=== PATIENT | male | born 1945 | race Caucasian/White ===

== ENCOUNTER → 2018-08-23 10:21 | Outpatient (CLI) | payer MEDICARE, OTHER, SELFPAY ==
--- NOTE | 2018-08-23 10:27 | US_ITS ---
US Arterial Ankle Brachial Ind History: Diabetes, hyperlipidemia, bilateral claudication ITS.REASON: Skin Change ORDERING PHYSICIAN: Lyndsay Rocha DPM PATIENT AGE: 73 years TECHNIQUE: Segmental pressures obtained of both right and left leg. These are compared to brachial blood pressure to yield index at each level sampled including summary LAUREN. The data sheets from the procedure are available in PACS FINDINGS Rest study only performed today No prior studies available for comparison. Blood pressures reported are in millimeters mercury. RIGHT LEG LAUREN = 1.3. RIGHT LEG TBI=1.0 Brachial BP: 168 Thigh BP: 189 Calf BP: 205 Ankle PT: 211 Ankle DP : 181 Digit =164 LEFT LEG LAUREN = 1.2 LEFT LEG TBI= 1.0 Brachial BPD: 158 Thigh BP: 183 Calf BP: 199 Ankle PT:203 Ankle DP: 180 Digit = 170 Pulses and waveforms: Normal IMPRESSION: The ABIs as reported above are within normal limits. Waveforms and pulses are also unremarkable. The TBI's are within normal limits
== END ==
PROVIDERS: Family Provider Family Medicine; PCP Family Medicine; Visit Provider Podiatrist
DX: R09.89 Other specified symptoms and signs involving the circulatory and respiratory systems (principal); R23.9 Unspecified skin changes
CPT/HCPCS: 93922

== ENCOUNTER → 2018-08-29 07:57 | Outpatient (POV) | payer MEDICARE, OTHER, SELFPAY | PROVIDERS: Family Provider Family Medicine; PCP Family Medicine; Visit Provider Specialist | DX: G56.22 Lesion of ulnar nerve, left upper limb (principal); R20.2 Paresthesia of skin | CPT/HCPCS: 95886; 95909 ==

== ENCOUNTER → 2018-10-13 15:01 | Outpatient (CLI) | payer MEDICARE, OTHER, SELFPAY | PROVIDERS: PCP Family Medicine; Visit Provider Family Medicine | DX: R07.9 Chest pain, unspecified (principal) | CPT/HCPCS: 93005 ==

== ENCOUNTER → 2019-02-27 13:50 | Outpatient (POV) | payer MEDICARE, OTHER, SELFPAY ==
[2019-02-27 13:55] VITALS: BP 142/65; PULSE 79; RESP 18; O2SAT 98
--- NOTE | 2019-03-06 12:12 | HMH.PMCON ---
Assessment and Plan (1) Piriformis syndrome Status: Chronic Qualifiers: Laterality: right Qualified Code(s): G57.01 - Lesion of sciatic nerve, right lower limb Category: Medical Code(s): G57.00 - Lesion of sciatic nerve, unspecified lower limb (2) Myofascial pain syndrome Status: Chronic Category: Medical Code(s): M79.18 - Myalgia, other site - Assessment and plan all Dx Assessment and Plan for all problems:: We will set the patient up for piriformis injection. I will see him back and reassess him at that time. Patient's been instructed to call the office if he has any issues prior to his next appointment. Dr. Chaney has reviewed this note and agrees with this plan of care. This note was dictated using voice recognition software and may contain errors or omissions HPI - Data of Consult Consult date: 03/06/19 Requesting Physician: Suri Leach APRN Primary Care Provider: Malathi Lopes MD - Consult Narrative Reason for consult: Low back pain History of present illness: Mr. Medel is a 73 year old male who presents today with a complaint of pain on his sit bone on the right side. Patient is having pain in his piriformis muscle. Patient states that it runs down his leg at times. Patient stated started after an ER visit where he had his legs dangling for quite some time. He rates his pain a 8 out of 10 today. CC: Suri Leach APRN [facility] History I have reviewed the patient's past medical history: Yes Medical History: Reports:: Atrial Fibrillation, Coronary Artery Disease, Diabetes Mellitus Type 2, Hyperlipidemia, Hypertension, Myocardial Infarction Denies:: Diabetes Mellitus Type 1 *Have you ever received a pneumonia vaccine?: Yes *Have you received a flu vaccine this season?: No Other Medical History: Reports: Arthritis, Sinus Problems Laterality Cases: Bilateral: Arthroscopy Knee, Tonsillectomy Other Surgeries: Yes: Cardiac Catheterization, Coronary Stent, Other Amputation: No Fractures: No - *Social History Smoking Status: Never smoker Alcohol Intake: never Alcohol Intake Frequency:: other Substance Use Type: denies use *Occupational Status:: retired Housing: house *Travel in the last 8 weeks: None - Psychiatric History Expresses thoughts of harming self/others: None Suicide Plan Description: No Plan Family Hx:: Cancer, Hyperlipidemia, Hypertension, Coronary Artery Disease, Heart Attack Meds Home Medications Medication Instructions Recorded Confirmed Type amlodipine 5 mg tablet 5 mg PO DAILY tab 02/01/18 02/06/19 History aspirin 81 mg tablet,delayed 81 mg PO DAILY tab 02/01/18 02/06/19 History release coenzyme Q10 100 mg capsule 100 mg PO DAILY cap 02/01/18 02/06/19 History flaxseed oil 1,000 mg capsule 3,000 mg PO DAILY cap 02/01/18 02/06/19 History glimepiride 4 mg tablet 4 mg PO QAM 02/01/18 02/06/19 History meloxicam 15 mg tablet 15 mg PO QODHS tab 02/01/18 02/06/19 History metformin 1,000 mg tablet 1,000 mg PO BID 02/01/18 02/06/19 History metoprolol succinate ER 100 mg 100 mg PO DAILY tab 02/01/18 02/06/19 History tablet,extended release 24 hr geqhtgmdsvgu-Hp-mbci-minerals 18 1 tab PO DAILY tab 02/01/18 02/06/19 History mg-0.4 mg tablet nitroglycerin 0.4 mg sublingual 0.4 mg SUBLINGUAL Q5M PRN 02/01/18 02/06/19 History tablet pravastatin 40 mg tablet 40 mg PO QHS 02/01/18 02/06/19 History tamsulosin 0.4 mg capsule 0.4 mg PO ONCE 02/01/18 02/06/19 History fluticasone propionate 50 1 spray INTRANASAL DAILY PRN 60 08/09/18 02/06/19 History mcg/actuation nasal Days #16 g spray,suspension furosemide 20 mg tablet 20 mg PO DAILY 90 Days #90 tab 08/09/18 02/06/19 History losartan 50 mg tablet 50 mg PO BID 90 Days #180 tab 08/09/18 02/06/19 History glucosamine sulfate 500 mg tablet 500 mg PO BID tab 02/06/19 02/06/19 History isosorbide mononitrate ER 30 mg 30 mg PO DAILY #30 tab 02/06/19 02/06/19 Rx tablet,extended release 24 hr All
--- NOTE | 2019-03-06 12:15 | P.CONS_ITS ---
Assessment and Plan (1) Piriformis syndrome Status: Chronic Qualifiers: Laterality: right Qualified Code(s): G57.01 - Lesion of sciatic nerve, right lower limb Category: Medical Code(s): G57.00 - Lesion of sciatic nerve, unspecified lower limb (2) Myofascial pain syndrome Status: Chronic Category: Medical Code(s): M79.18 - Myalgia, other site - Assessment and plan all Dx Assessment and Plan for all problems:: We will set the patient up for piriformis injection. I will see him back and reassess him at that time. Patient's been instructed to call the office if he has any issues prior to his next appointment. Dr. Chaney has reviewed this note and agrees with this plan of care. This note was dictated using voice recognition software and may contain errors or omissions HPI - Data of Consult Consult date: 03/06/19 Requesting Physician: Suri Leach APRN Primary Care Provider: Malathi Lopes MD - Consult Narrative Reason for consult: Low back pain History of present illness: Mr. Medel is a 73 year old male who presents today with a complaint of pain on his sit bone on the right side. Patient is having pain in his piriformis muscle. Patient states that it runs down his leg at times. Patient stated started after an ER visit where he had his legs dangling for quite some time. He rates his pain a 8 out of 10 today. CC: Suri Leach APRN [facility] History I have reviewed the patient's past medical history: Yes Medical History: Reports:: Atrial Fibrillation, Coronary Artery Disease, Diabetes Mellitus Type 2, Hyperlipidemia, Hypertension, Myocardial Infarction Denies:: Diabetes Mellitus Type 1 *Have you ever received a pneumonia vaccine?: Yes *Have you received a flu vaccine this season?: No Other Medical History: Reports: Arthritis, Sinus Problems Laterality Cases: Bilateral: Arthroscopy Knee, Tonsillectomy Other Surgeries: Yes: Cardiac Catheterization, Coronary Stent, Other Amputation: No Fractures: No - *Social History Smoking Status: Never smoker Alcohol Intake: never Alcohol Intake Frequency:: other Substance Use Type: denies use *Occupational Status:: retired Housing: house *Travel in the last 8 weeks: None - Psychiatric History Expresses thoughts of harming self/others: None Suicide Plan Description: No Plan Family Hx:: Cancer, Hyperlipidemia, Hypertension, Coronary Artery Disease, Heart Attack Meds Home Medications Medication Instructions Recorded Confirmed Type amlodipine 5 mg tablet 5 mg PO DAILY tab 02/01/18 02/06/19 History aspirin 81 mg tablet,delayed 81 mg PO DAILY tab 02/01/18 02/06/19 History release coenzyme Q10 100 mg capsule 100 mg PO DAILY cap 02/01/18 02/06/19 History flaxseed oil 1,000 mg capsule 3,000 mg PO DAILY cap 02/01/18 02/06/19 History glimepiride 4 mg tablet 4 mg PO QAM 02/01/18 02/06/19 History meloxicam 15 mg tablet 15 mg PO QODHS tab 02/01/18 02/06/19 History metformin 1,000 mg tablet 1,000 mg PO BID 02/01/18 02/06/19 History metoprolol succinate ER 100 mg 100 mg PO DAILY tab 02/01/18 02/06/19 History tablet,extended release 24 hr fjpdwsfyrjkd-Bc-vhxf-minerals 18 1 tab PO DAILY tab 02/01/18 02/06/19 History mg-0.4 mg tablet nitroglycerin 0.4 mg sublingual 0.4 mg SUBLINGUAL Q5M PRN 02/01/18 02/06/19 History tablet pravastatin 40 mg tablet 40 mg PO QHS 02/01/18 02/06/19 History tamsulosin 0.4 mg capsule 0.4 mg PO ONCE 0
== END ==
PROVIDERS: PCP Family Medicine; Visit Provider Clinical Nurse Specialist Family Health
DX: G57.01 Lesion of sciatic nerve, right lower limb (principal); M79.18 Myalgia, other site
CPT/HCPCS: 99202

== ENCOUNTER → 2019-03-01 11:12 | Outpatient (CLI) | payer MEDICARE, OTHER, SELFPAY | PROVIDERS: PCP Family Medicine; Visit Provider Internal Medicine | DX: I25.10 Atherosclerotic heart disease of native coronary artery without angina pectoris | CPT/HCPCS: 93306 ==

== ENCOUNTER → 2019-03-13 12:46 | Outpatient (POV) | payer MEDICARE, OTHER, SELFPAY ==
[2019-03-13 13:00] VITALS: BP 151/79; PULSE 88; RESP 18; O2SAT 98; BMI 38.6
--- NOTE | 2019-03-14 09:50 | P.CONS_ITS ---
[facility] Pain Management SOAP Note Subjective:: Patient is a pleasant 73-year-old white male who presents today for follow-up. Patient still having a lot of right-sided hip pain. Most the pain is centered over his right SI joint and right greater trochanteric bursa. Patient rates his pain a 7 out of 10 today. ROS General: no recent weight change, no fever, no sleep disturbances Respiratory: no cough, no shortness of air, no recurring pulmonary infections Cardiovascular/Peripheral Vascular: No chest pain, No palpitations, no edema, no shortness of breath. Gastrointestinal: no incontinence, normal bowel movements reported Genitourinary: no incontinence Musculoskeletal: Right hip pain Psychiatric: normal mood/ affect, Neurological: [denies weakness in extremities], [denies balance issues] Objective:: Physical Exam General: Alert and oriented x3, no acute distress, pleasant and cooperative, [on room air] Lungs: Resps E/U, Symmetrical chest expansion, Eyes: PERRL Musculoskeletal: Flexion and extension of lumbar spine somewhat guarded secondary to pain, deep tendon reflexes normal, strength in upper and lower extremities [5/5], [abnormal gait noted] positive Prashant's test, positive thigh thrust test and positive SI joint compression test on the right side, extreme point tenderness over right greater trochanteric bursa Neurological: speech clear, 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 I will follow-up with him after his injection reassess his symptoms at that time. Dr. Chaney has reviewed this note and agrees with this plan of care. This note was dictated using voice recognition software and may contain errors or omissions
== END ==
PROVIDERS: PCP Family Medicine; Visit Provider Clinical Nurse Specialist Family Health
DX: M46.1 Sacroiliitis, not elsewhere classified (principal); M71.9 Bursopathy, unspecified
CPT/HCPCS: 99213

== ENCOUNTER → 2019-04-27 12:23 | Outpatient (CLI) | payer MEDICARE, OTHER, SELFPAY ==
--- NOTE | 2019-04-27 12:31 | XR_ITS ---
XR foot RT min 3V HISTORY: ITS.REASON: RT FOOT PAIN ORDERING PHYSICIAN: Robert Cornelius MD PATIENT AGE: 74 years COMPARISON: None FINDINGS: No fracture or dislocation. No lytic or blastic change. There is normal mineralization.. The joint spaces are well-preserved. No significant degenerative/arthritic changes. No erosive changes evident. IMPRESSION: Negative, no acute finding
--- NOTE | 2019-05-19 14:34 | SW/DCPLANNER ---
I have set this patient up with [facility]. I have spoke with Maria Eugenia at [facility] to confirm order has been received and services will be resumed.
== END ==
PROVIDERS: PCP Family Medicine; Visit Provider Family Medicine
DX: M79.671 Pain in right foot (principal)
CPT/HCPCS: 73630

== ENCOUNTER → 2019-05-22 10:35 | Outpatient (POV) | payer MEDICARE, OTHER, SELFPAY ==
[2019-05-22 10:49] VITALS: BP 149/71; PULSE 75; RESP 18; O2SAT 98; BMI 38.0
--- NOTE | 2019-05-22 11:00 | HMH.PAINSOAP ---
[facility] Pain Management SOAP Note Subjective:: Patient is a pleasant 73-year-old white male who presents today for complaints of right hip pain radiating to his right thigh area. He rates his pain a 6 out of 10 today. Patient had a right SI joint and right greater trochanteric bursa injection in February, but did not follow-up after that injection. He reports that he was unable to follow-up secondary to caring for his who has Alzheimer's. He says that he was reported by a home health nurse for leaving in the past to go to a doctor's appointment. As a result, he is very limited with his ability to schedule appointments. ROS General: no recent weight change, no fever, no sleep disturbances Respiratory: no cough, no shortness of air, no recurring pulmonary infections Cardiovascular/Peripheral Vascular: No chest pain, No palpitations, no edema, no shortness of breath. Gastrointestinal: no incontinence, normal bowel movements reported Genitourinary: no incontinence Musculoskeletal: Back pain, right leg pain Psychiatric: normal mood/ affect, [denies depression], [denies anxiety] Neurological: [denies weakness in extremities], [denies balance issues] Objective:: Physical Exam General: Alert and oriented x3, no acute distress, pleasant and cooperative, [on room air] Lungs: Resps E/U, Symmetrical chest expansion, Eyes: PERRL Musculoskeletal: Flexion and extension of lumbar spine somewhat guarded secondary to pain, deep tendon reflexes normal, strength in upper and lower extremities [5/5], abnormal gait noted, positive Tess test, positive compression test, positive Maged test Neurological: speech clear, warehouser equal, no gross sensory deficits Assessment:: Sacroiliitis Plan:: We will schedule the patient for a right SI joint injection. The patient is not on any anticoagulation therapy. He will continue a home stretching program and NSAIDs. We will follow-up with the patient after his procedure and reassess his symptoms at that time. He is been instructed to call the office if he has any concerns prior to his next appointment.
--- NOTE | 2019-05-22 11:04 | P.CONS_ITS ---
[facility] Pain Management SOAP Note Subjective:: Patient is a pleasant 73-year-old white male who presents today for complaints of right hip pain radiating to his right thigh area. He rates his pain a 6 out of 10 today. Patient had a right SI joint and right greater trochanteric bursa injection in February, but did not follow-up after that injection. He reports that he was unable to follow-up secondary to caring for his who has Alzheimer's. He says that he was reported by a home health nurse for leaving in the past to go to a doctor's appointment. As a result, he is very limited with his ability to schedule appointments. ROS General: no recent weight change, no fever, no sleep disturbances Respiratory: no cough, no shortness of air, no recurring pulmonary infections Cardiovascular/Peripheral Vascular: No chest pain, No palpitations, no edema, no shortness of breath. Gastrointestinal: no incontinence, normal bowel movements reported Genitourinary: no incontinence Musculoskeletal: Back pain, right leg pain Psychiatric: normal mood/ affect, [denies depression], [denies anxiety] Neurological: [denies weakness in extremities], [denies balance issues] Objective:: Physical Exam General: Alert and oriented x3, no acute distress, pleasant and cooperative, [on room air] Lungs: Resps E/U, Symmetrical chest expansion, Eyes: PERRL Musculoskeletal: Flexion and extension of lumbar spine somewhat guarded secondary to pain, deep tendon reflexes normal, strength in upper and lower extremities [5/5], abnormal gait noted, positive Tess test, positive compression test, positive Maged test Neurological: speech clear, 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 The patient is not on any anticoagulation therapy. He will continue a home stretching program and NSAIDs. We will follow-up with the patient after his procedure and reassess his symptoms at that time. He is been instructed to call the office if he has any concerns prior to his next appointment.
== END ==
PROVIDERS: PCP Family Medicine; Visit Provider Clinical Nurse Specialist Family Health
DX: M46.1 Sacroiliitis, not elsewhere classified (principal)
CPT/HCPCS: 99212

== ENCOUNTER → 2019-06-19 11:42 | Outpatient (POV) | payer MEDICARE, OTHER, SELFPAY ==
[2019-06-19 11:43] VITALS: BP 136/68; PULSE 67; RESP 18; O2SAT 98; BMI 35.2
--- NOTE | 2019-06-19 12:32 | P.CONS_ITS ---
[facility] Pain Management SOAP Note Subjective:: Patient is a pleasant 74-year-old white male who presents today for follow-up. Patient is being treated for right sacroiliitis. Patient had a right SI joint recently and reports that he had 90% relief with the injection, however the pain has returned. Patient says that he finds himself leaning more on his right side and feels like he is causing increased pressure to his right joint . Patient rates his pain a 3 out of 10 today. The patient also reports that he is concerned with his right foot. He says that the arch in his foot appears to be decreasing, causing him increased pain. He has not consulted with podiatry in the past. He does feel as though the problem with his foot is also increasing his pain. The patient does ambulate with a cane on the right side. The patient continues with a home stretching program and anti-inflammatories. Review of Systems General: No recent weight changes, no fever, no sleep disturbances Respiratory: No cough, no shortness of air, no recurring pulmonary infections Cardiovascular/peripheral vascular: No chest pain, no palpitations, no edema, no shortness of breath Gastrointestinal: No new onset incontinence, normal bowel movements reported Genitourinary: No new onset incontinence Musculoskeletal: Right buttock pain Psychiatric: Normal mood/affect Neurological: [Denies weakness in extremities], [denies balance issues] Objective:: Physical exam General: Alert and oriented x3, no acute distress, pleasant and cooperative, [on room air] Lungs: Respirations even and unlabored, symmetrical chest expansion Eyes: PERRL Musculoskeletal: Flexion and extension of lumbar spine somewhat guarded secondary to pain, deep tendon reflexes normal, strength in upper and lower extremities [5/5], [abnormal gait noted], positive compression test, Maged test, Yoemans test Neurological: Speech clear, 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 Given the efficacy in the past I think he would benefit from this. He will also continue home stretching program, along with anti-inflammatories. We will also refer the patient to Dr. Worrell given his complaint with pain to his right foot and reports of a decreasing arch . The patient does feel that this is a component to his continued pain with ambulation. We will see the patient back after his procedure to reassess his symptoms at that time. He has been his call the office if he has concerns prior to the next appointment. Dr. Chaney has reviewed this note and agrees with this plan of care. This note was dictated using voice recognition software and make contain errors or omissions.
== END ==
PROVIDERS: PCP Family Medicine; Visit Provider Clinical Nurse Specialist Family Health
DX: M46.1 Sacroiliitis, not elsewhere classified (principal)
CPT/HCPCS: 99212

== ENCOUNTER → 2019-08-14 13:05 | Outpatient (POV) | payer MEDICARE, OTHER, SELFPAY ==
[2019-08-14 13:27] VITALS: BP 131/67; PULSE 75; RESP 18; O2SAT 98; BMI 33.2
--- NOTE | 2019-08-14 13:32 | HMH.PAINSOAP ---
[facility] Pain Management SOAP Note Subjective:: Is a pleasant 74-year-old white male who presents today for follow-up after right SI joint injection. Patient rates his pain a 0 out of 10. Patient overall doing well with his current recently lost 40 pounds. Patient would like to follow-up on an as-needed basis. ROS General: no recent weight change, no fever, no sleep disturbances Respiratory: no cough, no shortness of air, no recurring pulmonary infections Cardiovascular/Peripheral Vascular: No chest pain, No palpitations, no edema, no shortness of breath. Gastrointestinal: no incontinence, normal bowel movements reported Genitourinary: no incontinence Musculoskeletal: Back pain, hip pain Psychiatric: normal mood/ affect Neurological: [denies weakness in extremities], [denies balance issues] Objective:: Physical Exam General: Alert and oriented x3, no acute distress, pleasant and cooperative, [on room air] Lungs: Resps E/U, Symmetrical chest expansion, Eyes: PERRL Musculoskeletal: Flexion and extension of lumbar spine somewhat guarded secondary to pain, deep tendon reflexes normal, strength in upper and lower extremities [5/5], [abnormal gait noted] Neurological: speech clear, lambskin trimmer equal, no gross sensory deficits Assessment:: Sacroiliitis Plan:: We will follow-up with the patient on as-needed basis is been instructed to call the office if he has any issues prior to his next appointment. Dr. Chaney has reviewed this note and agrees with this plan of care. This note was dictated using voice recognition software and may contain errors or omissions [facility] History I have reviewed the patient's past medical history: Yes Medical History: Reports:: Atrial Fibrillation, Coronary Artery Disease, Diabetes Mellitus Type 2, Hyperlipidemia, Hypertension, Myocardial Infarction Denies:: Cancer, Diabetes Mellitus Type 1, Internal Pacemaker, MRSA, Seizures *Have you ever received a pneumonia vaccine?: Yes *Have you received a flu vaccine this season?: Yes Other Medical History: Reports: Arthritis, Sinus Problems Laterality Cases: Bilateral: Arthroscopy Knee, Tonsillectomy Other Surgeries: Yes: Cardiac Catheterization, Coronary Stent, Other. No: Pacemaker Amputation: No Fractures: No - *Social History Smoking Status: Never smoker Tobacco Type: smokeless tobacco # Packs/Day (cigarettes): 1 Alcohol Intake: never Alcohol Intake Frequency:: other Substance Use Type: denies use *Occupational Status:: other Housing: house Household Members: spouse *Travel in the last 8 weeks: None Family Hx:: Cancer, Hyperlipidemia, Hypertension, Coronary Artery Disease, Heart Attack
== END ==
PROVIDERS: PCP Family Medicine; Visit Provider Clinical Nurse Specialist Family Health
DX: M46.1 Sacroiliitis, not elsewhere classified (principal)
CPT/HCPCS: 99212

== ENCOUNTER → 2019-12-26 11:43 | Outpatient (POV) | payer MEDICARE, OTHER, SELFPAY ==
--- NOTE | 2019-12-26 12:24 | HMH.PAINSOAP ---
[facility] Pain Management SOAP Note Subjective:: Patient is a pleasant 74-year-old white male who presents today for follow-up after SI joint injection. Patient has 90% pain relief. Patient denies any pain today. Overall doing well would like to follow-up as needed ROS General: no recent weight change, no fever, no sleep disturbances Respiratory: no cough, no shortness of air, no recurring pulmonary infections Cardiovascular/Peripheral Vascular: No chest pain, No palpitations, no edema, no shortness of breath. Gastrointestinal: no new onset incontinence, normal bowel movements reported Genitourinary: no new onset incontinence Musculoskeletal: Back pain, SI joint pain Psychiatric: normal mood/ affect Neurological: [denies new onset weakness in extremities], [denies new onset balance issues] Objective:: Physical Exam General: Alert and oriented x3, no acute distress, pleasant and cooperative, [on room air] Lungs: Resps E/U, Symmetrical chest expansion, Eyes: PERRL Musculoskeletal: Flexion and extension of lumbar spine somewhat guarded secondary to pain, deep tendon reflexes normal, strength in upper and lower extremities [5/5], [abnormal gait noted] Neurological: speech clear, bill of materials clerk equal, no gross sensory deficits Assessment:: Sacroiliitis Plan:: We will follow-up with the patient on an as-needed basis and to call our office when his pain begins to return. Dr. Chaney has reviewed this note and agrees with this plan of care. This note was dictated using voice recognition software and may contain errors or omissions [facility] History I have reviewed the patient's past medical history: Yes Medical History: Reports:: Atrial Fibrillation, Coronary Artery Disease, Diabetes Mellitus Type 2, Hyperlipidemia, Hypertension, Myocardial Infarction Denies:: Cancer, Diabetes Mellitus Type 1, Internal Pacemaker, MRSA, Seizures *Have you ever received a pneumonia vaccine?: Yes *Have you received a flu vaccine this season?: Yes Other Medical History: Reports: Arthritis, Sinus Problems Laterality Cases: Bilateral: Arthroscopy Knee, Tonsillectomy Other Surgeries: Yes: Cardiac Catheterization, Coronary Stent, Other. No: Pacemaker Amputation: No Fractures: No - *Social History Smoking Status: Current every day smoker Tobacco Type: smokeless tobacco # Packs/Day (cigarettes): 1 Alcohol Intake: never Alcohol Intake Frequency:: other Substance Use Type: denies use *Occupational Status:: retired Housing: house Household Members: spouse *Travel in the last 8 weeks: None Family Hx:: Cancer, Hyperlipidemia, Hypertension, Coronary Artery Disease, Heart Attack
[2019-12-26 12:26] VITALS: BP 173/79; PULSE 74; RESP 18; O2SAT 98; BMI 32.3
== END ==
PROVIDERS: PCP Family Medicine; Visit Provider Clinical Nurse Specialist Family Health
DX: M46.1 Sacroiliitis, not elsewhere classified (principal); I48.91 Unspecified atrial fibrillation; I25.10 Atherosclerotic heart disease of native coronary artery without angina pectoris; E11.9 Type 2 diabetes mellitus without complications; E78.5 Hyperlipidemia, unspecified; I10 Essential (primary) hypertension; I25.2 Old myocardial infarction; Z72.0 Tobacco use
CPT/HCPCS: 99212

== ENCOUNTER → 2020-04-08 15:30 | Outpatient (CLI) | payer MEDICARE, OTHER, SELFPAY ==
--- NOTE | 2020-04-08 15:42 | XR_ITS ---
PROCEDURE: XR CHEST 2V CLINICAL HISTORY: ISCHEMIC HEART DISEASE Chest pain COMPARISON: CXR CHEST(2 VIEWS-NOT PORTABLE) from 03/12/2017 CXR1 CHEST-PORTABLE from 04/26/2017 CXR2V XR chest 2V from 02/03/2019 FINDINGS: The cardiomediastinal silhouette and pulmonary vascularity are within normal limits. The lungs are clear without infiltrates, suspicious nodules, or pleural effusions. There are some atelectatic or fibrotic changes in the lung bases and there is evidence of old granulomatous disease. There are multiple old right-sided rib fractures. IMPRESSION: Mild bibasilar atelectasis or fibrosis otherwise negative Dictated by: Earle Espitia MD 04/08/2020 16:21 Electronically signed by Earle Espitia MD in [place] 04/08/2020 16:21
[2020-04-08 15:53] LABS: Alanine Aminotransferase 17 U/L (12-78); Albumin Level 4.7 g/dl (3.5-5.0); Albumin/Globulin Ratio 1.7 (1.1-1.8); Alkaline Phosphatase 61 U/L (38-126); Anion Gap 9.5 mEq/L (5-15); Aspartate Amino Transferase 26 U/L (17-59); Bilirubin,Total 0.6 mg/dl (0.2-1.3); Blood Urea Nitrogen 22 mg/dl (9-20); Calcium 10.2 mg/dl (8.4-10.2); Carbon Dioxide 30 mmol/L (22.0-30.0); Chloride 104 mmol/L (98-107); Creatine Kinase 70 U/L (55-170); Estimated Glomerular Filt Rate 73 ml/min (>60); GFR (African American) 88 ML/MIN (>60); Globulin 2.7 g/dL (1.3-3.2); Glucose 126 mg/dl (74-100); Potassium 4.5 mmoL/L (3.5-5.1); Sodium 139 mmol/L (136-145); Total Protein,Serum 7.4 g/dl (6.3-8.2)
[2020-04-08 16:05] LABS: CKMB Relative Index 1.9 U/L (0-4.0); Creatine Kinase MB 1.3 ng/ml (0.0-2.03)
[2020-04-08 16:07] LABS: Troponin I < 0.01 ng/ml (0.00-0.034)
--- NOTE | 2020-04-08 17:03 | ECG_ITS ---
APPROVED REPORT Exam: Resting ECG HR:67 bpm ECG Measurements Heart Rate 67 AXES DE 256 P 46 QRSd 108 QRS -13 QT 394 T 10 QTc 416 <Conclusion> Sinus rhythm with 1st degree AV block Incomplete right bundle branch block Borderline ECG Electronically signed by : Ivan Howard, 04/09/2020 16:38:12
== END ==
PROVIDERS: Visit Provider Family Medicine
DX: I25.9 Chronic ischemic heart disease, unspecified (principal)
CPT/HCPCS: 36415; 71046; 80053; 82550; 82553; 84484; 93005

== ENCOUNTER 2020-04-16 08:42 | Day surgery (SDC) | payer MEDICARE, OTHER, SELFPAY ==
[2020-04-16] VITALS (12 sets, daily range): BP systolic 129–197; BP diastolic 64–97; PULSE 56–72; RESP 16–20; TEMP 36.5; O2SAT 92–95; BMI 33.2
--- NOTE | 2020-04-16 | IR_ITS ---
APPROVED REPORT Patient Location: Outpatient PROCEDURES Left heart catheterization Left ventriculogram Selective coronary angiogram INDICATION Abnormal EKG, Angina pectoris, Previous myocardial infarction Informed consent was obtained prior to the procedure. COMPLICATIONS NONE Estimated Blood Loss: LESS THAN 10 ML TECHNIQUE One percent lidocaine used to anesthetize the right anterior aspect of the wrist. The right radial artery was accessed via the Seldinger technique. A 6 Lao sheath was placed in the right radial artery. 2.5 mg of verapamil, 800 mcg of nitroglycerin, 1mg Lidocaine and 5000 U Heparin were given through the arterial sheath. The trap catheter was also used to perform left heart catheterization, left ventriculogram and selective coronary angiogram. At the end of the procedure the sheath was removed good hemostasis was achieved using Traclet band, patient was transferred to the postop holding area in stable condition. ANGIOGRAPHIC RESULTS The left main artery Normal The left anterior descending artery Has proximal 20 and 30% stenoses and mid vessel 30 to 40% tandem stenoses. A large first diagonal artery has an ostial 40% stenosis. There is an additional 50 to 60% stenosis in the midportion of the diagonal artery where the vessel is 1.5 mm The circumflex artery Is a codominant vessel and has mid vessel 30% stenosis The right coronary artery Is codominant and has proximal 10 to 20% stenoses and a distal 20 to 30% stenosis The SANTANA ventriculogram reveals Normal 65% The left ventricular end-diastolic pressure 10 mmHg IMPRESSION Mild to moderate [id number] coronary artery disease Normal ejection fraction Normal left ventricular end-diastolic pressure PLAN 1. Medical management Electronically signed by : Angelo Jacobsen, 04/16/2020 11:52:27
[2020-04-16 09:27] LABS: Chloride 104 mmol/L (98-107); Potassium 3.7 mmoL/L (3.5-5.1); Sodium 137 mmol/L (136-145)
[2020-04-16 09:28] LABS: Basophils # 0.1 K/mm3 (0-0.2); Basophils % 1.4 % (0.1-2.0); Eosinophils # 0.9 K/mm3 (0.0-0.4); Eosinophils % 9.5 % (0.1-12.0); Hematocrit 46.6 % (42.0-52.0); Hemoglobin 14.8 g/dL (14.1-18.0); Lymphocytes # 2.3 K/mm3 (0.7-4.5); Lymphocytes % 23.6 % (10-50); Mean Corpuscular HGB Conc 31.8 g/dL (31.8-35.4); Mean Corpuscular Volume 91.1 fl (80-94); Mean Platelet Volume 8.1 fl (7.4-10.4); Monocytes # 0.8 K/mm3 (0.1-1.0); Monocytes % 7.6 % (1.7-9.3); Neutrophils # 5.7 K/mm3 (1.8-7.8); Neutrophils % 57.8 % (37.0-80.0); Platelet Count 264 K/mm3 (142-424); Red Blood Count 5.11 M/mm3 (4.60-6.20); Red Cell Distribution Width 14.1 % (11.5-17.5); White Blood Count 9.8 K/mm3 (4.8-10.8)
[2020-04-16 09:30] LABS: Anion Gap 11.7 mEq/L (5-15); Blood Urea Nitrogen 24 mg/dl (9-20); Calcium 9.6 mg/dl (8.4-10.2); Carbon Dioxide 25 mmol/L (22.0-30.0); Creatinine Clearance Estimated 102 mL/min (50-200); Estimated Glomerular Filt Rate 110 ml/min (>60); GFR (African American) 133 ML/MIN (>60); Glucose 149 mg/dl (74-100)
== END 2020-04-16 14:50 | disposition home or self-care (01) ==
LOC: CATHLAB 08:46
PROVIDERS: PCP Family Medicine; Visit Provider Internal Medicine
DX: R07.9 Chest pain, unspecified (principal); I25.110 Atherosclerotic heart disease of native coronary artery with unstable angina pectoris; E11.9 Type 2 diabetes mellitus without complications; Z79.84 Long term (current) use of oral hypoglycemic drugs; I48.0 Paroxysmal atrial fibrillation; I10 Essential (primary) hypertension; Z79.899 Other long term (current) drug therapy
CPT/HCPCS: 80048; 85025; 93458; 99152; C1725; C1769; J1644; Q9967

== ENCOUNTER → 2020-04-18 14:25 | Outpatient (CLI) | payer MEDICARE, OTHER, SELFPAY | PROVIDERS: PCP Family Medicine; Visit Provider Nurse Practitioner Family | DX: R00.2 Palpitations (principal) | CPT/HCPCS: 93225 ==

== ENCOUNTER → 2020-10-09 14:25 | Outpatient (POV) | payer MEDICARE, OTHER, SELFPAY | DX: Z00.00 Encounter for general adult medical examination without abnormal findings (principal) ==

== ENCOUNTER → 2021-12-27 14:16 | Outpatient (CLI) | payer MEDICARE, OTHER, SELFPAY ==
[2021-12-27 14:32] LABS: Basophils # 0.1 K/mm3 (0-0.2); Basophils % 1.7 % (0.1-2.0); Eosinophils # 0.6 K/mm3 (0.0-0.4); Eosinophils % 6.8 % (0.1-12.0); Hemoglobin 14.9 g/dL (14.1-18.0); Lymphocytes # 2.3 K/mm3 (0.7-4.5); Lymphocytes % 27.6 % (10-50); Mean Corpuscular HGB Conc 31.6 g/dL (31.8-35.4); Mean Corpuscular Hemoglobin 30.2 pg (27.0-31.2); Mean Corpuscular Volume 95.4 fl (80-94); Mean Platelet Volume 8.8 fl (7.4-10.4); Monocytes # 0.5 K/mm3 (0.1-1.0); Monocytes % 5.9 % (1.7-9.3); Neutrophils # 4.9 K/mm3 (1.8-7.8); Platelet Count 259 K/mm3 (142-424); Red Blood Count 4.92 M/mm3 (4.60-6.20); Red Cell Distribution Width 14.4 % (11.5-17.5); White Blood Count 8.5 K/mm3 (4.8-10.8)
== END ==
PROVIDERS: Visit Provider Family Medicine
DX: I25.10 Atherosclerotic heart disease of native coronary artery without angina pectoris (principal); I48.91 Unspecified atrial fibrillation; E11.42 Type 2 diabetes mellitus with diabetic polyneuropathy; E78.5 Hyperlipidemia, unspecified; Z79.84 Long term (current) use of oral hypoglycemic drugs
CPT/HCPCS: 85025

== ENCOUNTER → 2022-03-25 15:11 | Outpatient (CLI) | payer MEDICARE, OTHER, SELFPAY | PROVIDERS: Visit Provider Urology | DX: R97.20 Elevated prostate specific antigen [PSA] (principal); Z01.812 Encounter for preprocedural laboratory examination; Z11.52 Encounter for screening for COVID-19 | CPT/HCPCS: C9803; U0003; U0005 ==

== ENCOUNTER 2022-03-27 07:03 | Day surgery (SDC) | payer MEDICARE, OTHER, SELFPAY ==
[2022-03-25 12:45] VITALS: BMI 35.2
[2022-03-27 07:51] VITALS: BP 144/96; PULSE 72; RESP 18; TEMP 36.6; O2SAT 98
[2022-03-27 09:12] LABS: POC Glucose,Bedside 169 (70-110)
--- NOTE | 2022-03-27 09:21 | P.PN_ITS ---
[facility] Anesthesia Checklist - Patient Identification Patient Identification: Arm Band - Structural Data Admitted From: Home Planned Operative Procedure/s: Prostate Bx Consent for Planned Operative Procedure(s) Verified: Yes Verified Documents: Surgical Consent, History and Physical - NPO Status Verified Time NPO: 00:00 - Additional verifications Anesthesia Reactions: No Hx Blood Transfusions: No - Airway Assessment C-Spine Mobility Assessed: Yes (mp2) TMJ Mobility Assessed: Yes Dentition: Good Dentition - Neurological Assessment Level of Consciousness: Awake, Alert - Anesthesia Plan Anesthesia Risk discussed: Yes Anesthesia Plan: Verified ASA Class: III Anesthesia Type: MAC [facility] History I have reviewed the patient's past medical history: Yes Medical History: Reports:: Atrial Fibrillation, Coronary Artery Disease, Diabetes Mellitus Type 2, Hyperlipidemia, Hypertension, Myocardial Infarction Denies:: Cancer, Diabetes Mellitus Type 1, Internal Pacemaker, MRSA, Seizures *Have you ever received a pneumonia vaccine?: No *Have you received a flu vaccine this season?: Yes Other Medical History: Reports: Arthritis, Sinus Problems Anesthesia experience/problems:: nac Laterality Cases: Bilateral: Arthroscopy Knee, Tonsillectomy Other Surgeries: Yes: Cardiac Catheterization, Colonoscopy, Coronary Stent, Other. No: Pacemaker Amputation: No Fractures: No - *Social History Last grade of school completed: GED Smoking Status: Light tobacco smoker Tobacco Type: cigars # Packs/Day (cigarettes): 1 Alcohol Intake: never Alcohol Intake Frequency:: other Substance Use Type: denies use *Occupational Status:: unemployed Housing: house Household Members: spouse *Travel in the last 8 weeks: None Family Hx:: Coronary Artery Disease, Diabetes
[2022-03-27 09:28] VITALS: BP 103/45; PULSE 56; RESP 16; TEMP 36.6; O2SAT 92
[2022-03-27 09:43] VITALS: BP 127/67; PULSE 62; RESP 16; O2SAT 94
--- NOTE | 2022-03-27 09:46 | HMH.OPNOTE ---
Date of procedure: 03/27/22 Pre-op Diagnosis:: Elevated PSA to 15.9 Post-op Diagnosis:: Elevated PSA, very large prostate Procedure performed:: Prostate biopsy with transrectal ultrasound guidance Surgeon:: Danie Carmichael MD [facility] PSYCHIATRIST:: Ga Shea Anesthesia: MAC Estimated blood loss (mL): 0 Clinical Note:: 76-year-old white male with long history of elevated PSA. His recent PSA was 15.9 and he opts for prostate biopsy. He performed preoperative antibiotics and enema. Operative findings:: Prostate was measured at 110 cm?. No hypoechoic or hyperechoic areas were noted. No calcifications were noted. There was evidence of a moderate sized median lobe. Operative note:: Patient taken to the operating suite after informed consent was obtained. On the stretcher he was placed into the left lateral decubitus position and monitored anesthesia care administered. After adequate analgesia the transrectal ultrasound probe was placed into the rectum and the prostate was easily visualized. It was measured at 110 cm?. No hypoechoic or hyperechoic lesions were noted. No calcifications were noted. There was a moderate sized median lobe. Local anesthetic placed in each neurovascular bundle and 12 biopsies then taken in a systematic fashion. Patient tolerated procedure well no complications discharged to recovery in stable condition. Condition: stable Disposition: same day Specimens:: Prostate biopsies x12 Complications:: None
[2022-03-27 09:58] VITALS: BP 122/66; PULSE 63; RESP 16; O2SAT 95
[2022-03-27 10:15] VITALS: BP 130/65; PULSE 65; RESP 16; TEMP 36.6; O2SAT 97
== END 2022-03-27 10:15 | disposition home or self-care (01) ==
LOC: OR 07:04
PROVIDERS: PCP Family Medicine; Visit Provider Urology
DX: R97.20 Elevated prostate specific antigen [PSA] (principal); N40.1 Benign prostatic hyperplasia with lower urinary tract symptoms; I48.91 Unspecified atrial fibrillation; I25.10 Atherosclerotic heart disease of native coronary artery without angina pectoris; E11.9 Type 2 diabetes mellitus without complications; E78.5 Hyperlipidemia, unspecified; I10 Essential (primary) hypertension; I25.2 Old myocardial infarction; M19.90 Unspecified osteoarthritis, unspecified site; Z88.8 Allergy status to other drugs, medicaments and biological substances; Z79.82 Long term (current) use of aspirin; Z79.899 Other long term (current) drug therapy
CPT/HCPCS: 55700; 82962; 88305

== ENCOUNTER → 2022-05-14 13:24 | Outpatient (CLI) | payer MEDICARE, OTHER, SELFPAY ==
--- NOTE | 2022-05-14 13:58 | CA_ITS ---
FINAL REPORT TECHNIQUE: Color Doppler, duplex Doppler and stuart scale sonography of the bilateral neck vasculature was performed. Velocities were measured in the carotid arteries. Stenosis evaluation based on velocity criteria. CLINICAL HISTORY: .HTN, HLD, DM, Former smoker Dizziness FINDINGS: The peak systolic velocity of the right common carotid artery is 73 cm/sec and internal carotid artery 148 cm/sec. The diastolic velocity in the internal carotid artery is 25 cm/sec. The ICA/CCA ratio is 1.7. Visually, a small amount of plaque is seen. These findings are consistent with less than 50% stenosis. The external carotid artery is patent. The right vertebral artery is patent with antegrade flow. The peak systolic velocity of the left common carotid artery is 85 cm/sec and internal carotid artery 91 cm/sec. The diastolic velocity in the internal carotid artery is 23 cm/sec. The ICA/CCA ratio is 1.0. Visually, a small amount of plaque is seen. These findings are consistent with less than 50% stenosis. The external carotid artery is patent. The left vertebral artery is patent with antegrade flow. IMPRESSION: No evidence of significant carotid stenosis. Bilateral patent vertebral arteries. If indicated, CTA or MRA could further evaluate. Reviewed, Interpreted and Dictated by Fox Barajas III, MD Transcribed by [place] Authenticated and [facility]
== END ==
PROVIDERS: PCP Family Medicine; Visit Provider Family Medicine
DX: G45.0 Vertebro-basilar artery syndrome
CPT/HCPCS: 93880

== ENCOUNTER → 2022-08-24 12:51 | Outpatient (POV) | payer MEDICARE, OTHER, SELFPAY ==
[2022-08-24 13:06] VITALS: BP 167/69; PULSE 72; RESP 18; TEMP 36.4; O2SAT 95; BMI 34.2
--- NOTE | 2022-08-24 16:33 | EXP.PAIN.OV ---
[facility] Data of Consult Patient: new to practice Consult date: 08/24/22 Requesting Physician: Vandana Muhammad APRN Consult Narrative Reason for consult: Low back pain, left leg pain History of present illness: Mr. Medel is a 77 year old male who presents today as a new patient. He is a referral from Dr. Lopes's office. Today the patient rates his pain a 9 out of 10. He states the pain is primarily in his low back that radiates into his left leg. He describes this as a constant achy, dull sensation that changes to a jabbing pain with increased activity. Patient states that about a month and a half ago he did fall landing on his bilateral knees. Patient denied any significant trauma or fracture from this injury. Patient states that he has chronic low back pain since the 70s. He states that a Ortho physician did want to do back surgery however he declined at that time and has had issues ever since. Patient does present with an MRI from 2016 showing spinal stenosis, disc herniation, facet hypertrophy disc bulges and ligamentum flavum hypertrophy.. He currently treats his pain with ibuprofen and muscle relaxers. Patient states that he has never been prescribed muscle relaxers however he has had a friend that his let him try some and it has provided some improvement of his symptoms. Patient states he has seen physical therapy a couple years ago that provided minimal improvement of his symptoms. He also saw a chiropractor about 30 years ago. Patient states he has been seeing a massage therapist about 3 months ago and was going to them regularly. He states this did provide significant improvement of his symptoms however he had to stop because they were doing local renovations to the building and were not doing massages at that time. Patient does state that he also has neuropathy in his lower extremities. He was previously prescribed gabapentin however he has an allergy/intolerance to this medication. He states this made him mean and edgy. Patient also states in his history he is been a previous patient around 2019 where he was treated for SI related issues. Patient also has a rivet heater gas that he has not been to for years however he did have A. fib and ended up doing a cardiac ablation. Patient states that heat does not help with his pain symptoms. He is not currently on any scheduled medications. His Corbin is [id number]. It has been reviewed and appropriate. CC: Vandana Muhammad APRN [facility] Medical History (Updated 08/24/22 @ 16:43 by Vandana Muhammad APRN) Afib AMI (acute myocardial infarction) Arthritis CAD (coronary artery disease) Diabetes HLD (hyperlipidemia) HTN (hypertension) CLAUDIO (obstructive sleep apnea) Sacroiliitis Sinus problem Surgical History (Updated 08/24/22 @ 13:26 by Jammie Gleason RN) H/O arthroscopic knee surgery H/O colonoscopy History of cardiac cath History of tonsillectomy Social History Smoking Status: Light tobacco smoker tobacco type: cigars second hand exposure: No alcohol intake: never substance use type: denies use current occupational status: retired Travel in the last 8 weeks: None household members: spouse housing: house current occupational exposures/hazards: No caffeine: Yes Review of Systems Review of Systems Review of systems:: pertinent systems reviewed and negative unless documented below Review of systems (narrative): Review of Systems: General: No recent weight changes, no fever, no sleep disturbances Respiratory: No cough, no shortness of air, no recurring pulmonary infections Cardiovascular/peripheral vascular: No chest pain, no palpitations, no edema, no shortness of breath Gastrointestinal: No new onset incontinence, normal bowel movements reported Genitourinary: No new onset incontinence Musculoskeletal: Low back pain, left leg pain Psychiatric: [Normal mood/affect] Neurological: [Denies weakness in extremities], [denies balance issues] Meds Home Medi
== END | disposition home or self-care (01) ==
PROVIDERS: Visit Provider Nurse Practitioner Family
DX: M51.36 Other intervertebral disc degeneration, lumbar region (principal); M48.061 Spinal stenosis, lumbar region without neurogenic claudication; M47.819 Spondylosis without myelopathy or radiculopathy, site unspecified; M79.605 Pain in left leg
CPT/HCPCS: 99212; G0463

== ENCOUNTER → 2022-09-22 13:35 | Outpatient (CLI) | payer MEDICARE, OTHER, SELFPAY | PROVIDERS: PCP Family Medicine; Visit Provider Physician Assistant | DX: R00.2 Palpitations (principal) | CPT/HCPCS: 93225; 93226 ==

== ENCOUNTER → 2022-10-05 13:36 | Outpatient (POV) | payer MEDICARE, OTHER, SELFPAY ==
[2022-10-05 14:53] VITALS: BP 150/74; PULSE 82; RESP 18; O2SAT 94; BMI 33.3
--- NOTE | 2022-10-05 15:08 | EXP.PAIN.SOA ---
[facility] Pain Management SOAP Note Subjective:: Patient is a pleasant 77-year-old male who presents today for follow-up of lumbar MRI imaging. We are currently treating the patient for degenerative disc disease of lumbar spine with lumbar radiculopathy symptoms, spinal stenosis, facet hypertrophy, low back pain, left leg pain. Today the patient rates his pain a 8 out of 10. Patient states he recently had a hot off of his mattress and twisted his back and is now having right mid axilla pain to his lower front abdomen. Patient states this is a sore, achy sensation. Patient states the pain he experiences most continues to be in his low back and the neuropathy in his legs. Patient states it is a burning sensation that frequently affects his sleeping. Patient was prescribed tizanidine 4 mg 3 times a day at our last visit however he states he is only taking it 1 or 2 times. Patient has also taken Ultracet in the past that was written by Dr. Lopes's office however it did not help with his pain symptoms. Patient's at our last visit was having additional left hip pain and at today's visit he states it is better however it does still continue to bother him some. Patient has had lumbar MRI imaging at the [facility]. Patient is currently managed with tramadol 37.[address] Lopes's office. Patient denies any side effects from this medication. He states this medication does not really help with his pain symptoms. Patient states he has tried gabapentin in the past for his neuropathy however it made him mean. Patient does state that he has a history of A. 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 His Corbin is [id number]. It has been reviewed and appropriate. Review of Systems: General: No recent weight changes, no fever, no sleep disturbances Respiratory: No cough, no shortness of air, no recurring pulmonary infections Cardiovascular/peripheral vascular: No chest pain, no palpitations, no edema, no shortness of breath Gastrointestinal: No new onset incontinence, normal bowel movements reported Genitourinary: No new onset incontinence Musculoskeletal: Low back pain, leg pain, mid abdomen pain Psychiatric: [Normal mood/affect] Neurological: [Denies weakness in extremities], [denies balance issues] Objective:: Physical Exam: General: Alert and oriented x3, no acute distress, pleasant and cooperative Lungs: Respirations even and unlabored, symmetrical chest expansion Eyes: PERRL Musculoskeletal: Flexion and extension of lumbar [spine] somewhat guarded secondary to pain, [antalgic gait noted] Neurological: Speech clear, no gross sensory deficit Assessment:: Degenerative disc disease lumbar spine with lumbar radiculopathy symptoms, facet arthropathy, spinal stenosis, low back pain, left leg pain Plan:: Patient continues to experience significant pain in his low back as well as his bilateral lower extremities with neuropathy. Patient did have limited range of motion of his lumbar spine during today's visit. Patient's MRI did show degenerative changes of the lumbar spine with central canal and foraminal encroachment and disc osteophyte complex and disc protrusion at L5-S1 with lateral recess encroachment and impingement of the passing S1 nerve roots bilaterally, advanced paraspinal fatty muscle atrophy. I did discuss with the patient that he may get beneficial relief following an epidural injection at L5-S1. Risk and benefits were discussed with the patient. At this time I have recommended he see his road boss first before we schedule this injection. I have also discussed with the patient regarding trying pregabalin 150 mg 3 times a day. I will provide a 1 month supply of this medication. We will follow-up with the patient in 1 month. Patient will return to clinic in 1 month for reevaluation of symptoms, medication refill and follow-up. Patient has been instructed to contact the clinic with any concerns before the next appointmen
== END | disposition home or self-care (01) ==
PROVIDERS: PCP Psychiatry & Neurology Sleep Medicine; Visit Provider Nurse Practitioner Family
DX: M51.16 Intervertebral disc disorders with radiculopathy, lumbar region (principal); M48.00 Spinal stenosis, site unspecified; M47.816 Spondylosis without myelopathy or radiculopathy, lumbar region; M79.605 Pain in left leg; Z72.0 Tobacco use
CPT/HCPCS: 99212; G0463

== ENCOUNTER → 2022-12-07 13:00 | Outpatient (POV) | payer MEDICARE, OTHER, SELFPAY ==
--- NOTE | 2022-12-07 13:47 | EXP.PAIN.SOA ---
[facility] Pain Management SOAP Note Subjective:: Patient is a pleasant 77-year-old male who presents today for medication refill and follow-up. We are currently managing the patient for degenerative disc disease of lumbar spine with lumbar radiculopathy symptoms, spinal stenosis, facet hypertrophy, low back pain, left leg pain. Today the patient rates his pain a 0 out of 10. Patient denies any new trauma or injury. Patient denies any change to location or type of pain he experiences. Patient does state his pain is typically in his low back along with his neuropathy in his legs. Patient is currently managed with pregabalin 100 mg at bedtime and tizanidine 4 mg 3 times a day. Patient denies any side effects from these medications. Patient states these medications do help with his pain symptoms. Patient states he has not noticed as significant improvement with the pregabalin 100 mg as he did initially. His Corbin is [id number]. Its been reviewed and appropriate. Review of Systems: General: No recent weight changes, no fever, no sleep disturbances Respiratory: No cough, no shortness of air, no recurring pulmonary infections Cardiovascular/peripheral vascular: No chest pain, no palpitations, no edema, no shortness of breath Gastrointestinal: No new onset incontinence, normal bowel movements reported Genitourinary: No new onset incontinence Musculoskeletal: Low back pain Psychiatric: [Normal mood/affect] Neurological: [Denies weakness in extremities], [denies balance issues] Objective:: Physical Exam: General: Alert and oriented x3, no acute distress, pleasant and cooperative Lungs: Respirations even and unlabored, symmetrical chest expansion Eyes: PERRL Musculoskeletal: Flexion and extension of lumbar [spine] somewhat guarded secondary to pain, [antalgic gait noted] Neurological: Speech clear, no gross sensory deficit ORT score updated with low risk of 1 Family history of alcohol use Assessment:: Degenerative disc disease of lumbar spine with lumbar radiculopathy symptoms, facet hypertrophy, low back pain, left leg pain Plan:: Patient has had significant improvement of his pain symptoms following the addition of pregabalin. I will refill his pregabalin 100 mg at bedtime and tizanidine 4 mg 3 times daily and provide a 3-month supply of these medications. I have discussed with the patient that he can take his 100 mg at night along with 1 of his remaining 50 mg pregabalin and see if he gets significant improvement with that combination. Our previous attempt to do 150 mg ended with him saying he could not tolerate this dosage however he has slowly increased from 50 mg to 100 mg and may do fine with 150 mg now. Patient will return to clinic in 3 months for reevaluation of symptoms, medication refill and follow-up. Patient has been instructed to contact the clinic with any concerns before the next appointment. Dr. Chaney has reviewed this note and agrees with this plan of care. This note was dictated using voice recognition software and make contain errors or omissions. [facility] Disclaimer: The information contained in this section may have been updated after the patient was seen, as this information can be updated by other users. Medical History (Updated 08/24/22 @ 16:43 by Vandana Muhammad APRN) Afib AMI (acute myocardial infarction) Arthritis CAD (coronary artery disease) Diabetes HLD (hyperlipidemia) HTN (hypertension) CLAUDIO (obstructive sleep apnea) Sacroiliitis Sinus problem Surgical History (Updated 08/24/22 @ 13:26 by Jammie Gleason RN) H/O arthroscopic knee surgery H/O colonoscopy History of cardiac cath History of tonsillectomy Social History Smoking Status: Light tobacco smoker tobacco type: cigars second hand exposure: No alcohol intake: never substance use type: denies use current occupational status: retired Travel in the last 8 weeks: None household members: spouse housing: house current occupational exposure
[2022-12-07 14:18] VITALS: BP 158/80; PULSE 80; RESP 18; O2SAT 97; BMI 33.3
== END | disposition home or self-care (01) ==
PROVIDERS: PCP Psychiatry & Neurology Sleep Medicine; Visit Provider Nurse Practitioner Family
DX: M51.16 Intervertebral disc disorders with radiculopathy, lumbar region (principal); M47.26 Other spondylosis with radiculopathy, lumbar region; M79.605 Pain in left leg
CPT/HCPCS: 99212; G0463

== ENCOUNTER → 2022-12-09 14:09 | Outpatient (CLI) | payer MEDICARE, OTHER, SELFPAY ==
--- NOTE | 2022-12-09 | CA_ITS ---
APPROVED REPORT EXAM: Comprehensive 2D, Doppler, and color-flow Echocardiogram Last Waxer: Funmi Olguin RT(R) Ht: 6 ft 0 in Wt: 260lbs BSA: 2.38 BP: 159/75 mmHg Indications: tachy/rosy syndrome, smoker, HTN, DM, hyperlipidemia, AFIB, CAD, CLAUDIO 2D Dimensions LVOT 1.99 cm (M/F) 1.5-2.5 LA Volume 38.20 mL LA Volume Index 16.05 mL/m2 (M/F) 16-34 M-Mode Dimensions RVDd 3.58 cm (0.9-2.6) LA Diam 4.22 cm (1.9-4.0) LVDd 4.74 cm (3.5-5.7) Ao Diam 2.96 cm (2.0-3.7) LVDs 3.22 cm (3.5-5.7) IVSd 1.03 cm (0.6-1.1) PWd 0.94 cm (0.6-1.1) EF (Teich) 60.20% FS 32.10% EDV (Teich) 104.40 mL ESV (Teich) 41.60 mL LV Diastology E Decel Time 150.00 (160-240 msec) E/A Ratio 0.7 MED E' 12.70 (< 7 cm/sec) E'/MED E' Ratio 5.25 (>14) LAT E' 9.10 (<10 cm/sec) E/LAT E' Ratio 7.33 (>14) Aortic Valve LVOT Max 113.00 (70-110 cm/s) LVOT VTI 23.13 cm AoV Peak Gerardo. 126.00 (50-130 cm/s) AO Peak GR. 6.30 mmHg AO Mean GR. 3.10 (<5 mmHg) AO VTI 23.86 (18-25 cm) FLORY (VTI) 3.02 (2.5-4.5 cm2) Mitral Valve MV E Max Gerardo. 67.00 (40-130 cm/s) MV A Velocity 99.00 (40-130 cm/s) E/A Ratio 0.68 MV Decel. Time 150.00 (160-240 ms) MV PHT 44.00 ms Left Ventricle Left atrium is mildly enlarged, left ventricle is normal size mild concentric left ventricular hypertrophy estimated ejection fraction 55% with no regional wall motion abnormality, diastolic parameters are inconclusive. Right Ventricle Right atrium and right ventricle are mildly enlarged with normal contractility. Aortic Valve Aortic valve is thickened and calcified without Doppler evidence of aortic stenosis or aortic insufficiency. Mitral Valve Mitral valve is minimally thickened, there is mild mitral regurgitation. Tricuspid Valve Tricuspid valve is grossly normal, there is mild tricuspid regurgitation, tricuspid regurgitation jet velocity is inadequate for calculation of the right ventricular systolic pressure. Pulmonic Valve Pulmonic valve is poorly visualized. Great Vessels Aortic root is normal size. Inferior vena cava is poorly visualized. Pericardium No significant pericardial effusion noted. Conclusion 1. Biatrial enlargement, normal left ventricular size, estimated ejection fraction 55% with no regional wall motion abnormality, diastolic parameters are inconclusive. 2. Mildly enlarged right ventricle with normal contractility. 3. Mild mitral and tricuspid regurgitation. 4. No significant pericardial effusion. 5. Inferior vena cava is poorly visualized. Electronically signed by : Maximino Terrell MD 12/09/2022 18:23:19
== END ==
PROVIDERS: PCP Family Medicine; Visit Provider Family Medicine
DX: R94.31 Abnormal electrocardiogram [ECG] [EKG] (principal)
CPT/HCPCS: 93306

== ENCOUNTER → 2023-03-15 12:50 | Outpatient (POV) | payer MEDICARE, OTHER, SELFPAY ==
[2023-03-15 13:24] VITALS: BP 160/65; PULSE 75; RESP 20; O2SAT 96; BMI 35.2
--- NOTE | 2023-03-15 15:38 | EXP.PAIN.SOA ---
[facility] Pain Management SOAP Note Subjective:: Patient is a pleasant 77-year-old male who presents today for medication refill and 3-month follow-up. We are currently treating the patient for degenerative disc disease of lumbar spine with lumbar radiculopathy symptoms, spinal stenosis, lumbar facet arthropathy, low back pain, left leg pain. Today he rates his pain a 5 out of 10. Patient denies any new trauma or injury. Patient denies any change location or type of pain that he experiences he does state his pain is all in his low back with radiating symptoms into his legs. He does describe this as an aching, throbbing sensation with burning sensations as well. He does state his pain is worse with increased activity. He does continue to use an at home TENS unit and is managed with pregabalin 150 mg at bedtime. Patient denies any side effects from this medication. He does state that he is doing well with this however he feels it may need additional adjustment. His Corbin is . Its been reviewed and appropriate. Review of Systems: General: No recent weight changes, no fever, no sleep disturbances Respiratory: No cough, no shortness of air, no recurring pulmonary infections Cardiovascular/peripheral vascular: No chest pain, no palpitations, no edema, no shortness of breath Gastrointestinal: No new onset incontinence, normal bowel movements reported Genitourinary: No new onset incontinence Musculoskeletal: Low back pain Psychiatric: [Normal mood/affect] Neurological: [Denies weakness in extremities], [denies balance issues] Objective:: Physical Exam: General: Alert and oriented x3, no acute distress, pleasant and cooperative Lungs: Respirations even and unlabored, symmetrical chest expansion Eyes: PERRL Musculoskeletal: Flexion and extension of lumbar [spine] somewhat guarded secondary to pain, [antalgic gait noted] Neurological: Speech clear, no gross sensory deficit [facility] an open MRI September 03, 2022 Lumbar MRI without contrast Findings: There is a 1 cm nonobstructing stone in the left kidney. The vertebral heights are maintained. There is no signal abnormality. There is multilevel disc disc desiccation and there are scattered Schmorl's nodes. There are mild edematous degenerative endplate signal changes at L5-S1. There is a 3 mm anterior listhesis of L4 on L5. The cord ends at T12. There is advanced fatty paraspinal muscle atrophy. L1-L2 has patent central canal and neuroforamina L2-3 has a small disc osteophyte complex. There is mild posterior facet arthrosis. The canal is mildly encroach. Neuroforamina are patent. L3-4 has a diffuse disc osteophyte complex. There is mild posterior facet arthrosis. There is moderate central canal encroachment. Neuroforaminal are mildly encroached L4-L5 has advanced facet arthrosis. There is a grade 1 anterolisthesis with uncovering of the intervertebral disc. There is moderate central canal encroachment. Neuroforamina are mildly encroached L5-S1 has a disc osteophyte complex and a right paracentral disc protrusion. There is mild posterior facet arthrosis. There is bilateral lateral recess encroachment with impingement of the passing S1 nerve roots. There is moderate bilateral neural foraminal encroachment Assessment:: Degenerative disc disease of lumbar spine with lumbar radiculopathy symptoms, spinal stenosis, lumbar facet arthropathy, low back pain, left leg pain Plan:: Patient continues to experience significant pain in his low back and legs with limited range of motion. Patient's MRI did show multilevel degenerative disc disease with central canal and foraminal encroachment as well as impingement of the passing S1 nerve roots bilaterally. I have discussed with the patient that he may benefit from a lumbar epidural steroid injection at this level. Risk and benefits were discussed with the patient and he would like to proceed forward with this plan of care. Patient is currently
== END | disposition home or self-care (01) ==
PROVIDERS: PCP Family Medicine; Visit Provider Nurse Practitioner Family
DX: M51.16 Intervertebral disc disorders with radiculopathy, lumbar region (principal); M47.26 Other spondylosis with radiculopathy, lumbar region; M79.605 Pain in left leg
CPT/HCPCS: 99212; G0463

== ENCOUNTER → 2023-03-24 12:00 | Outpatient (CLI) | payer MEDICARE, OTHER, SELFPAY ==
--- NOTE | 2023-03-24 12:16 | CT_ITS ---
FINAL REPORT TECHNIQUE: Thin section axial CT with IV contrast supplemented with multiplanar reconstruction under CT angiogram protocol. 3-D reconstructions were performed. This study was performed with techniques to keep radiation doses as low as reasonably achievable (ALARA). Individualized dose reduction techniques using automated exposure control or adjustment of mA and/or kV according to the patient''s size were employed. CLINICAL HISTORY: Recurrent vertigo, vertebrobasilar insufficiency FINDINGS: The distal vertebral, basilar and distal internal carotid arteries have an unremarkable appearance. No aneurysm is seen. Major intracranial vessels are patent without significant stenosis. IMPRESSION: No significant stenosis. Reviewed, Interpreted and Dictated by Fox Barajas III, MD Transcribed by Jasmyn Salas Authenticated and [facility]
--- NOTE | 2023-03-24 12:16 | CT_ITS ---
FINAL REPORT TECHNIQUE: Thin section axial CT with IV contrast supplemented with multiplanar reconstruction under CT angiogram protocol. This study was performed with techniques to keep radiation doses as low as reasonably achievable (ALARA). Individualized dose reduction techniques using automated exposure control or adjustment of mA and/or kV according to the patient''s size were employed. NASCET criteria was utilized during interpretation. CLINICAL HISTORY: vertigo FINDINGS: Aortic arch: Arch shows no significant narrowing. Great vessel origins are widely patent. Right carotid: There is plaque at the level of the carotid bulb. No significant stenosis is seen of the cervical common or internal carotid artery. Left carotid: There is plaque at the level of the carotid bulb. No significant stenosis is seen of the cervical common or internal carotid artery. Vertebral: Right vertebral artery is dominant. No significant stenosis is present. IMPRESSION: Plaque at the level of the bilateral carotid bulbs without significant stenosis. Reviewed, Interpreted and Dictated by Fox Barajas III, MD Transcribed by Jasmyn Salas Authenticated and [facility]
[2023-03-24 12:21] LABS: Chloride 104 mmol/L (98-107); Potassium 4.2 mmoL/L (3.5-5.1); Sodium 141 mmol/L (136-145)
[2023-03-24 12:24] LABS: Alanine Aminotransferase 24 U/L (12-78); Albumin Level 4.4 g/dl (3.5-5.0); Albumin/Globulin Ratio 1.7 (1.1-1.8); Alkaline Phosphatase 84 U/L (38-126); Anion Gap 13.2 mEq/L (5-15); Aspartate Amino Transferase 25 U/L (17-59); Bilirubin,Total 0.4 mg/dl (0.2-1.3); Blood Urea Nitrogen 22 mg/dl (9-20); Calcium 9.3 mg/dl (8.4-10.2); Carbon Dioxide 28 mmol/L (22.0-30.0); Estimated Glomerular Filt Rate 73 ml/min (>60); GFR (African American) 88 ML/MIN (>60); Globulin 2.6 g/dL (1.3-3.2); Glucose 185 mg/dl (74-100)
== END ==
PROVIDERS: PCP Family Medicine; Visit Provider Specialist
DX: E11.69 Type 2 diabetes mellitus with other specified complication (principal); E66.9 Obesity, unspecified; G45.0 Vertebro-basilar artery syndrome; R42 Dizziness and giddiness; Z68.35 Body mass index [BMI] 35.0-35.9, adult; Z79.84 Long term (current) use of oral hypoglycemic drugs
CPT/HCPCS: 36415; 70496; 70498; 80053; Q9967

== ENCOUNTER → 2023-03-30 12:54 | Day surgery (SDC) | payer MEDICARE, OTHER, SELFPAY ==
[2023-03-30 13:00] VITALS: BP 141/63; PULSE 70; RESP 18; TEMP 36.3; O2SAT 94; BMI 35.2
--- NOTE | 2023-03-30 13:19 | P.PCN_ITS ---
Procedure Date: 03/30/23 Time: 13:15 Anesthesiologist:: Prashant Mcclellan CRNA Complications:: None Pre-procedure Diagnosis:: Degenerative disc disease lumbar spine multilevels. Lumbar radiculopathy Post-procedure Diagnosis:: Same. Indications for Procedure:: ,Patient is a very pleasant 77-year-old male comes our clinic today for lumbar epidural steroid injection L5-S1 level. Patient describes low back pain as constant, dull, aching. He also complains of bilateral hip and leg radicular s ymptoms. Bilateral leg weakness at times. Patient has difficulty ambulating. He presents to our clinic today in a wheelchair due to the distance from the parking lot. Patient has aspirations of ambulating without pain. He rates his pain today 06/07 Procedure Details:: Procedure: Lumbar epidural steroid injection under fluoroscopy Informed consent was obtained and the risks and benefits of the procedure were explained to the patient. The patient was taken to the procedure room and noninvasive monitors placed, including noninvasive blood pressure cuff and pulse oximeter. The back was viewed using C-arm Fluoroscopy and prepped using Chloraprep as a cleansing solution and the L5-S1 interspace was palpated. Skin and subcutaneous tissues were anesthetized using lidocaine 1.5% and a 25-gauge needle. After this, an 18-gauge Touhy epidural needle was placed into the L5-S1 interspace and advanced using fluoroscopic guidance and loss of resistance to air until the epidural space was encountered. After confirmation of needle placement in the epidural space, with dye, a solution containing normal saline, 3 mL and Depo-Medrol 80 mg were incrementally injected into the lumbar epidural space. The patient tolerated the procedure well with no complications. The patient was observed in the Pain Clinic and then discharged home neurologically intact. Plan and Disposition:: Patient was discharged without incident.
[2023-03-30 13:21] VITALS: BP 168/62; PULSE 71; RESP 18; O2SAT 94
== END | disposition home or self-care (01) ==
PROVIDERS: PCP Family Medicine; Visit Provider Nurse Anesthetist, Certified Registered
DX: M51.16 Intervertebral disc disorders with radiculopathy, lumbar region (principal)
CPT/HCPCS: 62323; J1040

== ENCOUNTER → 2023-04-14 12:59 | Outpatient (POV) | payer MEDICARE, OTHER, SELFPAY ==
[2023-04-14 13:07] VITALS: BP 184/77; PULSE 81; RESP 20; BMI 35.2
--- NOTE | 2023-04-14 14:50 | EXP.PAIN.SOA ---
[facility] Pain Management SOAP Note Subjective:: Patient is a pleasant 78-year-old male who presents today for follow-up of lumbar epidural steroid injection at L5-S1 on 03/30/2023. We are currently treating the patient for degenerative disc disease of lumbar spine multilevels with lumbar radiculopathy symptoms, spinal stenosis, lumbar facet arthropathy, low back pain, left leg pain. Today he states he has had at least 50% improvement following this injection and feels like it is still continuing to provide additional relief. He does rate his pain today a 6 out of 10. He states his pain is more when he is up with prolonged walking or standing. Patient states his pain is an aching, throbbing sensation that is worse with increased activity. He does state it interferes with his ability perform activities of daily living such as cooking and cleaning. He does frequently have to use a shopping cart and leans forward when he is at the grocery store or use his cane and leans frequently against it. Patient did have a rollator as well however he states that in 1 episode when he was leaning onto it while doing the dishes it did break at one of the wheels. Patient is currently prescribed pregabalin 150 mg at bedtime as well as pregabalin 200 mg at bedtime as needed on days that he is done more physical exertion and does not have anywhere to be the following day. Patient denies any side effects from this medication. He does state he feels like it has helped improve some of his neuropathy symptoms. He does continue to use his TENS unit at home. His Corbin is [id number]. Its been reviewed and appropriate. Review of Systems: General: No recent weight changes, no fever, no sleep disturbances Respiratory: No cough, no shortness of air, no recurring pulmonary infections Cardiovascular/peripheral vascular: No chest pain, no palpitations, no edema, no shortness of breath Gastrointestinal: No new onset incontinence, normal bowel movements reported Genitourinary: No new onset incontinence Musculoskeletal: Low back pain Psychiatric: [Normal mood/affect] Neurological: [Denies weakness in extremities], [denies balance issues] Objective:: Physical Exam: General: Alert and oriented x3, no acute distress, pleasant and cooperative Lungs: Respirations even and unlabored, symmetrical chest expansion Eyes: PERRL Musculoskeletal: Flexion and extension of lumbar [spine] somewhat guarded secondary to pain, [antalgic gait noted] Neurological: Speech clear, no gross sensory deficit Assessment:: Degenerative disc disease of lumbar spine multilevels with lumbar radiculopathy symptoms, spinal stenosis, lumbar facet arthropathy, low back pain, left leg pain Plan:: Patient is doing much better following his lumbar epidural steroid injection and does not require any injective therapy at this time. I will order him physical therapy for evaluation and treatment of his low back pain and leg pain. I have also discussed with the patient that he has a positive shopping cart sign and symptoms consistent with spinal stenosis with neurogenic claudication symptoms. I have discussed in the future that he may benefit from a minimally invasive lumbar decompression procedure. Educational handouts were given today and the risk and benefits of this procedure were explained. When he does require another epidural steroid injection we will plan on doing an epidurogram with it to find out if he is a beneficial candidate for the mild. I will refill his pregabalin 150 mg at bedtime and provide a 30-day supply of this medication. I will also send in 10 tablets of pregabalin 200 mg for the bedtime as needed medication. Patient will contact us for his next follow-up visit. Patient has been instructed to contact the clinic with any concerns before the next appointment. Dr. Chaney has reviewed this note and agrees with this plan of care. This note was dictated using voice recognition software and make contain errors or omission
== END | disposition home or self-care (01) ==
PROVIDERS: PCP Family Medicine; Visit Provider Nurse Practitioner Family
DX: M51.16 Intervertebral disc disorders with radiculopathy, lumbar region (principal); M48.061 Spinal stenosis, lumbar region without neurogenic claudication; M47.26 Other spondylosis with radiculopathy, lumbar region; M79.605 Pain in left leg
CPT/HCPCS: 99212; G0463

== ENCOUNTER 2023-05-21 13:13 | Day surgery (SDC) | payer MEDICARE, OTHER, SELFPAY ==
[2023-05-21 13:10] VITALS: BP 121/60; PULSE 68; RESP 20; O2SAT 95; BMI 35.2
[2023-05-21 13:28] VITALS: BP 155/77; PULSE 69; RESP 18; RESP 19; O2SAT 97
[2023-05-21 13:50] VITALS: BP 134/65; PULSE 68; RESP 20
--- NOTE | 2023-05-21 14:40 | P.PCN_ITS ---
Procedure Date: 05/21/23 Time: 14:40 Anesthesiologist:: Sivakumar Chaney MD Complications:: None Pre-procedure Diagnosis:: Degenerative disc disease of lumbar spine with lumbar spinal stenosis and neurogenic claudication symptoms Post-procedure Diagnosis:: Same Indications for Procedure:: This patient is a pleasant 78-year-old white male who we are treating for low back pain with lumbar spinal stenosis and neurogenic claudication symptoms. He has increasing pain in his back and down his legs. This is worse when walking and standing. We we will do a lumbar epidural steroid injection with epidurogram to assess levels of stenosis and candidacy for minimally invasive lumbar decompression. Procedure Details:: Informed consent was obtained and the risk and benefits of the procedure was explained to the patient. The patient was taken to the procedure room. The patient was placed prone on the procedure table. The patient was prepped and draped in sterile fashion. C-arm fluoroscopy was used to view the lumbar spine. Skin and subcutaneous tissues were anesthetized using lidocaine. I placed an 18-gauge epidural needle and advanced into the L4-L5 interspace using fluoroscopic guidance and [id number] to air. After confirmation of needle placement in the epidural space with dye I injected 2 mL of lidocaine 1.5% with Depo-Medrol 80 mg. Patient tolerated the procedure well with no complications. Plan and Disposition:: Based on epidurogram and MRI patient does have significant stenosis at L3-4 and L4-L5. He is good candidate for minimally invasive lumbar decompression b ilateral L3-L4 and L4-L5. We will plan on doing this when approved. We will also plan on using steroid during this procedure.
== END 2023-05-21 13:51 | disposition home or self-care (01) ==
LOC: SC.PAINP 13:14
PROVIDERS: PCP Family Medicine; Visit Provider Anesthesiology
DX: M48.062 Spinal stenosis, lumbar region with neurogenic claudication (principal); M51.36 Other intervertebral disc degeneration, lumbar region
CPT/HCPCS: 62323; J1040; Q9966

== ENCOUNTER 2023-06-25 06:53 | Day surgery (SDC) | payer MEDICARE, OTHER, SELFPAY ==
[2023-06-22 14:32] VITALS: BMI 35.2
[2023-06-25 07:32] VITALS: BP 140/79; PULSE 64; RESP 17; TEMP 36.3; O2SAT 98
[2023-06-25 07:50] LABS: POC Glucose,Bedside 141 (70-110)
--- NOTE | 2023-06-25 07:51 | P.PNANES_ITS ---
[facility] Disclaimer: The information contained in this section may have been updated after the patient was seen, as this information can be updated by other users. Medical History Afib AMI (acute myocardial infarction) Arthritis CAD (coronary artery disease) Diabetes HLD (hyperlipidemia) HTN (hypertension) CLAUDIO (obstructive sleep apnea) Sacroiliitis Sinus problem Surgical History H/O arthroscopic knee surgery H/O cardiac radiofrequency ablation H/O colonoscopy H/O vasectomy History of cardiac cath History of tonsillectomy Family History Other Family history of COPD (chronic obstructive pulmonary disease) Family history of hypertension No significant family history Social History Smoking Status: Light tobacco smoker tobacco type: cigars second hand exposure: No alcohol intake: never substance use type: denies use current occupational status: retired Travel in the last 8 weeks: None household members: spouse housing: house current occupational exposures/hazards: No caffeine: Yes [facility] Anesthesia Checklist Patient Identification Patient Identification: Arm Band and Verbal (Name & ) Structural Data Admitted From: Home Planned Operative Procedure/s: Lumbar Decompression Consent for Planned Operative Procedure(s) Verified: Yes Verified Documents: Surgical Consent NPO Status Verified Time NPO: 00:00 Additional verifications Anesthesia Reactions: No Hx Blood Transfusions: No Blood Transfusion Reaction: No Airway Assessment C-Spine Mobility Assessed: Yes TMJ Mobility Assessed: Yes Dentition: Poor Dentition Neurological Assessment Level of Consciousness: Awake and Alert Hx Seizures: No Anesthesia Plan ASA Class: III Anesthesia Type: IV sedation
[2023-06-25 08:01] LABS: Basophils # 0.1 K/mm3 (0-0.2); Basophils % 0.7 % (0.1-2.0); Eosinophils # 0.3 K/mm3 (0.0-0.4); Eosinophils % 3.5 % (0.1-12.0); Hematocrit 47.8 % (42.0-52.0); Hemoglobin 15.6 g/dL (14.1-18.0); Lymphocytes # 2.2 K/mm3 (0.7-4.5); Lymphocytes % 27.1 % (10-50); Mean Corpuscular HGB Conc 32.6 g/dL (31.8-35.4); Mean Corpuscular Hemoglobin 29.8 pg (27.0-31.2); Mean Corpuscular Volume 91.4 fl (80-94); Mean Platelet Volume 8.7 fl (7.4-10.4); Monocytes # 0.6 K/mm3 (0.1-1.0); Monocytes % 7.6 % (1.7-9.3); Neutrophils # 4.9 K/mm3 (1.8-7.8); Neutrophils % 61.2 % (37.0-80.0); Platelet Count 239 K/mm3 (142-424); Red Blood Count 5.23 M/mm3 (4.60-6.20); Red Cell Distribution Width 14.2 % (11.5-17.5)
[2023-06-25 08:11] LABS: Anion Gap 11.6 mEq/L (5-15); Blood Urea Nitrogen 16 mg/dl (9-20); Calcium 9.4 mg/dl (8.4-10.2); Carbon Dioxide 27 mmol/L (22.0-30.0); Chloride 106 mmol/L (98-107); Creatinine Clearance Estimated 103 mL/min (50-200); Estimated Glomerular Filt Rate 82 ml/min (>60); GFR (African American) 99 ML/MIN (>60); Glucose 150 mg/dl (74-100); Potassium 3.6 mmoL/L (3.5-5.1); Sodium 141 mmol/L (136-145)
[2023-06-25 10:18] VITALS: BP 154/69; PULSE 72; RESP 17; TEMP 36.2; O2SAT 96
[2023-06-25 10:28] VITALS: BP 150/71; PULSE 71; RESP 17; O2SAT 96
[2023-06-25 10:38] VITALS: BP 158/66; PULSE 69; RESP 18; O2SAT 94
[2023-06-25 10:48] VITALS: BP 158/69; PULSE 70; RESP 17; O2SAT 95
[2023-06-25 11:18] VITALS: BP 145/73; PULSE 68; RESP 17; O2SAT 95
--- NOTE | 2023-06-25 13:35 | EXP.OP.NOTE ---
Date of procedure: 06/25/23 Pre-op Diagnosis:: Degenerative disc disease of lumbar spine with lumbar spinal stenosis and neurogenic claudication symptoms Post-op Diagnosis:: Same Procedure performed:: Minimally invasive lumbar decompression bilateral L3-L4 and L4-L5 Surgeon:: Sivakumar Chaney MD MIXER OPERATOR HOT METAL:: Other Anesthesia: MAC Estimated blood loss (mL): 1 Clinical Note:: This patient is a pleasant 78-year-old white male who we are treating for low back pain with lumbar spinal stenosis and neurogenic claudication symptoms. He has increasing pain in his back and down both legs. This is worse when walking and standing. Based on MRI and epidurogram he does have significant spinal stenosis with ligamentum flavum hypertrophy at L3-L4 and L4-L5. He presents for minimally invasive lumbar decompression bilateral 3-4 and L4-5 today. Operative findings:: None Operative note:: Informed consent was obtained and the risk and benefits of the procedure was explained to the patient. The patient was taken to the operating room and placed prone on the procedure table. The patient was prepped and draped in sterile fashion. C-arm fluoroscopy was used to view the lumbar spine. The skin and subcutaneous tissues were anesthetized using lidocaine. A epidural needle was inserted and advanced into the L3-L4 interspace. After confirmation of needle placement in the epidural space, dye was injected in a contralateral oblique view. There was an epidurogram seen at L3-L4 and L4-L5. Significant stenosis was seen at L3-L4 and L4-L5. The skin and subcutaneous tissues again were anesthetized using lidocaine. An incision was made and a access trocar was inserted and advanced to contact at the superior aspect of the L4 lamina on the left side. And a contralateral oblique view the side was viewed. Using a bone rongeur and tissue sculptor we debulked bone from the L3-L4 and L4-L5 interspace on the left side. We then used the tissue sculptor to debulk ligament at the L3-L4 and L4-L5 interspace on the left side. We then moved over to the right side and debulked bone and ligament from L3-L4 and L4-L5 on the right side. There is opening of the stenosis at L3-L4 and L4-L5 bilaterally. The access trocar was removed. A total of 3 mL's of dye was used. There is good spread of dye above and below this level as well. We injected 80 mg Depo-Medrol through the epidural needle. The epidural needle was removed and dressings were placed. This encounter for exam is for normal comparison and control in a clinical research program Patient was taken to recovery in stable condition. Patient was discharged home neurologically intact and with good relief of pain symptoms. Plan and disposition: We will follow-up with this patient in 2 weeks. Will reevaluate symptoms at that time. Condition: stable Disposition: PACU Complications:: None
== END 2023-06-25 11:35 | disposition home or self-care (01) ==
PROVIDERS: PCP Family Medicine; Visit Provider Anesthesiology
DX: M48.062 Spinal stenosis, lumbar region with neurogenic claudication (principal); Z00.6 Encounter for examination for normal comparison and control in clinical research program
CPT/HCPCS: 0275T; 80048; 82962; 85025; 96374; C1889; J1040; J3370

== ENCOUNTER → 2023-07-12 14:24 | Outpatient (POV) | payer MEDICARE, OTHER, SELFPAY ==
[2023-07-12 14:48] VITALS: BP 161/81; PULSE 92; RESP 18; O2SAT 95; BMI 34.9
--- NOTE | 2023-07-12 14:50 | EXP.PAIN.SOA ---
[facility] Pain Management SOAP Note Subjective:: Patient is a pleasant 78-year-old male who presents today for follow-up of lumbar decompression bilaterally L3-L4 and L4-L5 on 06/25/2023. We are currently treating the patient for degenerative disc disease of lumbar spine multilevels with lumbar radiculopathy symptoms, spinal stenosis, lumbar facet arthropathy, low back pain, left leg pain. Today he states he has had significant improvement following this procedure. He does state that the pain will still come and go at different times. He does state that he was able to do more activity all of last week including walking back and forth from his neighbor's house multiple times with decreased pain symptoms. He also states he feels like his posture is better and he stands more straight. Today he does rate his pain a 5 out of 10. He denies any new trauma or injury. He does state today and this week he has felt a little bit more weak in his back and legs. He also states that he does not feel like he has as much motivation as he did last week to get up and walk around. He states that he did have somebody presents with him when he was walking in case something were to happen then he might fall. He states he does use his rollator and that he is planning on trying to do more this week. Patient is currently prescribed pregabalin 150 mg at bedtime as well as pregabalin 200 mg at bedtime as needed on days that he is done more physical exertion. He does state that he feels like the 200 mg does better and he has adjusted to this medication and does not have the groggy side effects. He is requesting his refill at this dosage. Patient denies any side effects from this medication. His Corbin is [id number] its been reviewed and appropriate. Review of Systems: General: No recent weight changes, no fever, no sleep disturbances Respiratory: No cough, no shortness of air, no recurring pulmonary infections Cardiovascular/peripheral vascular: No chest pain, no palpitations, no edema, no shortness of breath Gastrointestinal: No new onset incontinence, normal bowel movements reported Genitourinary: No new onset incontinence Musculoskeletal: Low back pain Psychiatric: [Normal mood/affect] Neurological: [Denies weakness in extremities], [denies balance issues] Objective:: Physical Exam: General: Alert and oriented x3, no acute distress, pleasant and cooperative Lungs: Respirations even and unlabored, symmetrical chest expansion Eyes: PERRL Musculoskeletal: Flexion and extension of lumbar [spine] somewhat guarded secondary to pain, [antalgic gait noted] Neurological: Speech clear, no gross sensory deficit Assessment:: Degenerative disc disease of lumbar spine multilevels with lumbar radiculopathy symptoms, spinal stenosis, lumbar facet arthropathy, low back pain, left leg pain, status post minimally invasive lumbar decompression bilaterally L3-L4 and L4-L5 Plan:: Patient has had improvement in his low back and leg symptoms following his lumbar decompression. He is experiencing more weakness this week however I have counseled the patient to increase his activity for improvement. I have also counseled the patient to not submerge his incision in water such as swimming, bathing or hot tub use until his incision is fully healed. I will refill the patient's pregabalin 200 mg and provide a 90-day supply of this medication. Patient will return to clinic in 3 months for reevaluation of symptoms and plan of care. I have also recommended that he consult his pharmacist to review over polypharmacy recommendations. Patient has been instructed to contact the clinic with any concerns before the next appointment. Dr. Chaney has reviewed this note and agrees with this plan of care. This note was dictated using voice recognition software and make contain errors or omissions. [facility] Disclaimer: The information contained in this section may have been updated after the patient was seen, as this information
== END | disposition home or self-care (01) ==
PROVIDERS: PCP Family Medicine; Visit Provider Nurse Practitioner Family
DX: M51.16 Intervertebral disc disorders with radiculopathy, lumbar region (principal); M48.061 Spinal stenosis, lumbar region without neurogenic claudication; M47.26 Other spondylosis with radiculopathy, lumbar region; M79.605 Pain in left leg
CPT/HCPCS: 99212; G0463

== ENCOUNTER → 2023-10-11 13:30 | Outpatient (POV) | payer MEDICARE, OTHER, SELFPAY ==
[2023-10-11 13:49] VITALS: BP 169/71; PULSE 80; RESP 18; O2SAT 96; BMI 34.9
--- NOTE | 2023-10-11 14:20 | EXP.PAIN.SOA ---
[facility] Pain Management SOAP Note Subjective:: Patient is a pleasant 78-year-old male who presents today for 3-month follow-up. We are currently treating the patient for degenerative disc disease of lumbar spine with lumbar radiculopathy symptoms, lumbar spinal stenosis with neurogenic claudication symptoms, status post lumbar decompression bilaterally L3-L4 and L4-L5, lumbar facet arthropathy, low back pain, left leg pain. Today he rates his pain a 5 out of 10. Patient does state following our last visit he did have a fall at his home. Patient had just had the lumbar decompression and was feeling much better prior to the fall. He states he had noticed improvement with his posture and that he was standing up more straight and unable to walk for longer periods of time before having to take a break. Patient does state that he was at home when he went to go sit down in his chair and missed the chair falling onto his buttocks. Patient does state that he has continued to have some pain and weakness in his legs. He does continue to use his rollator for help with ambulation at home. Patient also states that he has had a lot going on from our last visit that his sister did pass away and that he also lost his dog of 15 years. Patient is currently managed with pregabalin 150 mg at night and pregabalin 200 mg at night on days that are worse and that he has done more physical exertion. He does state today he has been doing primarily the 200 mg and that this is working well. He is requesting a refill. Patient does state that he has completed his at home physical therapy and that this did help improve some. He states he is not eligible to redo therapy until after the first of the year. his Corbin has been reviewed and is appropriate. Review of Systems: General: No recent weight changes, no fever, no sleep disturbances Respiratory: No cough, no shortness of air, no recurring pulmonary infections Cardiovascular/peripheral vascular: No chest pain, no palpitations, no edema, no shortness of breath Gastrointestinal: No new onset incontinence, normal bowel movements reported Genitourinary: No new onset incontinence Musculoskeletal: Bilateral leg weakness Psychiatric: [Normal mood/affect] Neurological: [Denies weakness in extremities], [denies balance issues] Objective:: Physical Exam: General: Alert and oriented x3, no acute distress, pleasant and cooperative Lungs: Respirations even and unlabored, symmetrical chest expansion Eyes: PERRL Musculoskeletal: Flexion and extension of lumbar [spine] somewhat guarded secondary to pain, [antalgic gait noted] Neurological: Speech clear, no gross sensory deficit Assessment:: Degenerative disc disease of lumbar spine with lumbar radiculopathy symptoms, lumbar spinal stenosis with neurogenic claudication symptoms, status post lumbar decompression bilaterally L3-L4 and L4-L5, lumbar facet arthropathy, low back pain, left leg pain Plan:: I will refill the patient's pregabalin 200 mg at bedtime and provide a 3-month supply of this medication. I have counseled the patient, the first of the year we can order additional physical therapy to be done at his home. I have discussed this with the patient and that he can call and have us order this before now and his next follow-up appointment in December. Patient will return to clinic in 3 months for reevaluation of symptoms and plan of care. Patient has been instructed to contact the clinic with any concerns before the next appointment. Dr. Chaney has reviewed this note and agrees with this plan of care. This note was dictated using voice recognition software and make contain errors or omissions. [facility] Disclaimer: The information contained in this section may have been updated after the patient was seen, as this information can be updated by other users. Medical History Afib AMI (acute myocardial infarction) Arthritis CAD (coronary art
== END | disposition home or self-care (01) ==
PROVIDERS: PCP Family Medicine; Visit Provider Nurse Practitioner Family
DX: M51.16 Intervertebral disc disorders with radiculopathy, lumbar region (principal); M48.062 Spinal stenosis, lumbar region with neurogenic claudication; M47.26 Other spondylosis with radiculopathy, lumbar region; M79.605 Pain in left leg
CPT/HCPCS: 99212; G0463

== ENCOUNTER → 2024-01-06 13:27 | Outpatient (POV) | payer MEDICARE, SELFPAY ==
--- NOTE | 2024-01-06 13:57 | A.OFFVIS_ITS ---
[facility] Pain Management SOAP Note Subjective:: Patient is a pleasant 78-year-old male who presents today for medication refill and 3-month follow-up. We are currently treating the patient for degenerative disc disease of lumbar spine with lumbar radiculopathy symptoms, lumbar spinal stenosis with neurogenic claudication symptoms, status post lumbar decompression bilaterally L3-L4 and L4-L5, lumbar facet arthropathy, low back pain, left leg pain. Today he rates his pain a 9 out of 10. Patient denies any new trauma or injury. He does state that he continues to have worsening pain in his low back and legs and that walking has become worse. Patient feels unstable on his feet. Patient is requesting physical therapy. Patient is currently managed with pregabalin 200 mg at bedtime. Patient denies any side effects from this medication. His Corbin has been reviewed and is appropriate. Review of Systems: General: No recent weight changes, no fever, no sleep disturbances Respiratory: No cough, no shortness of air, no recurring pulmonary infections Cardiovascular/peripheral vascular: No chest pain, no palpitations, no edema, n o shortness of breath Gastrointestinal: No new onset incontinence, normal bowel movements reported Genitourinary: No new onset incontinence Musculoskeletal: Low back pain, bilateral leg weakness Psychiatric: [Normal mood/affect] Neurological: [Denies weakness in extremities], [denies balance issues] Objective:: Physical Exam: General: Alert and oriented x3, no acute distress, pleasant and cooperative Lungs: Respirations even and unlabored, symmetrical chest expansion Eyes: PERRL Musculoskeletal: Flexion and extension of lumbar [spine] somewhat guarded secondary to pain, [antalgic gait noted] Neurological: Speech clear, no gross sensory deficit Assessment:: Degenerative disc disease of lumbar spine with lumbar radiculopathy symptoms, lumbar spinal stenosis with neurogenic claudication symptoms, status post lumbar decompression bilaterally L3-L4 and L4-L5, lumbar facet arthropathy, low back pain, left leg pain Plan:: I will refill the patient's pregabalin 200 mg at bedtime and provide a 6-month supply of this medication. I will also order the patient evaluation and treatment of physical therapy for his low back and leg symptoms. Patient will return to clinic in 6 months for reevaluation of symptoms and plan of care. Patient has been instructed to contact the clinic with any concerns before the next appointment. Dr. Chaney has reviewed this note and agrees with this plan of care. This note was dictated using voice recognition software and make contain errors or omissions. [facility] Disclaimer: The information contained in this section may have been updated after the patient was seen, as this information can be updated by other users. Medical History Afib AMI (acute myocardial infarction) Arthritis CAD (coronary artery disease) Diabetes HLD (hyperlipidemia) HTN (hypertension) CLAUDIO (obstructive sleep apnea) Sacroiliitis Sinus problem Surgical History H/O arthroscopic knee surgery H/O cardiac radiofrequency ablation H/O colonoscopy H/O vasectomy History of cardiac cath History of tonsillectomy Family History Other Family history of COPD (chronic obstructive pulmonary disease) Family history of hypertension No significant family history Social History Smoking Status: Light tobacco smoker tobacco type: cigars second hand exposure: No alcohol intake: never substance use type: denies use current occupational status: retired Travel in the last 8 weeks: None household members: spouse housing: house current occupational exposures/hazards: No caffeine: Yes
[2024-01-06 14:01] VITALS: BP 153/73; PULSE 79; RESP 20; O2SAT 94; BMI 35.6
== END | disposition home or self-care (01) ==
PROVIDERS: PCP Family Medicine; Visit Provider Nurse Practitioner Family
DX: M51.16 Intervertebral disc disorders with radiculopathy, lumbar region (principal); M48.062 Spinal stenosis, lumbar region with neurogenic claudication; M47.26 Other spondylosis with radiculopathy, lumbar region
CPT/HCPCS: 99212; G0463

== ENCOUNTER 2024-07-24 13:50 | Emergency (ER) | payer MEDICARE, SELFPAY ==
--- NOTE | 2024-07-24 15:13 | XR_ITS ---
FINAL REPORT TECHNIQUE: Chest PA & Lateral CLINICAL HISTORY: Nonspecific cough COMPARISON: 04/08/2020 FINDINGS: 2 views of the chest were performed. The heart size is normal. The mediastinum is within normal limits. The lungs are underinflated. Bibasilar scarring or atelectasis is noted. There are no pleural effusions. There is no pneumothorax. The bony thorax appears intact. IMPRESSION: Bibasilar scarring or atelectasis. Reviewed, Interpreted and Dictated by Barron Hodge MD Transcribed by Lamar Myers Authenticated and [facility]
[2024-07-24 15:17] VITALS: BP 131/76; PULSE 70; RESP 20; TEMP 36.8; O2SAT 94; BMI 36.6
--- NOTE | 2024-07-24 16:52 | EXP.UTC ---
Discharge Plan Disposition Patient Disposition: Home, Self-Care Condition: Good Prescriptions Prescriptions: New azithromycin [Zithromax Z-Chava] 250 mg tablet See Rx Instructions .ROUTE .COMPLEX 5 Days Qty: 6 0RF Rx Instructions: For 250 mg dose pack: take 500 mg today (day 1), then 250 mg for 4 days (days 2-5) No Action mecobalamin (vitamin B12) 500 mcg tablet,chewable See Rx Instructions PO .COMPLEX Rx Instructions: orally daily; Invokamet 50-1,000 mg tablet 1 tab PO ONCE cholecalciferol (vitamin D3) 50 mcg (2,000 unit) capsule 50 mcg PO DAILY metoprolol succinate 100 mg tablet extended release 24 hr 100 mg PO DAILY metformin 1,000 mg tablet 1,000 mg PO BID pravastatin 40 mg tablet 40 mg PO QHS aspirin [Adult Low Dose Aspirin] 81 mg tablet,delayed release (DR/EC) 81 mg PO DAILY flaxseed oil [[place]-3 Flaxseed Oil] 1,000 mg capsule 3,000 mg PO DAILY cywymfefzukp-Ml-bequ-minerals [Maximum Daily Multivitamin] 18-0.4 mg tablet 1 tab PO DAILY coenzyme Q10 100 mg capsule 100 mg PO DAILY tamsulosin 0.4 mg capsule,extended release 24hr 0.4 mg PO ONCE nitroglycerin 0.4 mg tablet, sublingual 0.4 mg SUBLINGUAL Q5M PRN (Reason: Chest Pain) glucosamine sulfate [Glucosamine] 500 mg tablet 500 mg PO BID amlodipine 5 mg tablet 10 mg PO DAILY glimepiride 4 mg tablet 4 mg PO BID meloxicam 15 mg tablet 7.5 mg PO Q OTHER DAY fluticasone propionate 50 mcg/actuation spray,suspension 1 spray INTRANASAL DAILY PRN (Reason: ALLERGIES) 60 Days Qty: 16 furosemide 20 mg tablet 20 mg PO DAILY 90 Days Qty: 90 losartan 50 mg tablet 50 mg PO BID 90 Days Qty: 180 isosorbide mononitrate 30 mg tablet extended release 24 hr 60 mg PO DAILY clopidogrel 75 mg tablet 75 mg PO DAILY Patient Comments: TAKE 1 TABLET BY MOUTH ONCE DAILY pregabalin [Lyrica] 150 mg capsule 150 mg PO HS pregabalin 200 mg capsule 200 mg PO HS PRN (Reason: neur) Qty: 90 2RF Referrals Follow up/Referrals: Malathi Lopes MD [Primary Care Provider] - See instructions Activity Restrictions/Add. Instructions Additional Instructions/Restrictions: Start antibiotic today. Be sure to complete entire prescription even if feeling better Monitor temp. Tylenol every 4 hours as needed and / or ibuprofen every 6 hours as needed ( As long as your primary care physician has told you that it ok to take both. For fever/aches/pains ER if no less than 101 despite Tylenol or Motrin Humidifier/vaporizer or hot steamy shower Mucinex during the day for your cough and cough suppressant only at night. Be sure to drink lots of water. Insurance may not cover a prescriptions for mucinex. Might be cheaper to get 400mg tablets and take 2 tablet in the morning, mid-day and evening with lots of water. ? You was given an outpatient order for diarrhea panel, please collect specimen and bring back to outpatient lab then call back to the [facility] or follow up with family doctor for results Follow up IMMEDIATELY for new or worsening of symptoms OR no noticeable improvement over the next 48-72 hours. 911 immediately for any life threatening symptoms such as chest pain or difficulty breathing Clinical Impressions Clinical Impression: Bronchitis Instructions Patient Instructions: Diarrhea, Acute Bronchitis Print Language Print Language: Thai Discharge ED Provider: Sara Garcia [facility] [place] General Stated complaint: diarrhea x 3 months, nausea, chills Mode of Arrival: Ambulatory Source of Information: Patient Limitations: No Limitations Time Seen by Provider: 07/24/24 15:20 Description of Symptoms (Recalled from Triage Doc. by RN): Reports diarrhea and cough for a couple of months. States he has been seen by his PCP multiple times and things still
[2024-07-24 17:35] VITALS: BP 131/76; PULSE 70; RESP 20; TEMP 36.8; O2SAT 94
== END 2024-07-24 17:37 | disposition home or self-care (01) ==
PROVIDERS: Emergency Provider Nurse Practitioner; PCP Family Medicine
DX: J20.9 Acute bronchitis, unspecified (principal); R19.7 Diarrhea, unspecified; R05.9 Cough, unspecified
CPT/HCPCS: 71046; 99204; 99212; G0463

== ENCOUNTER 2024-07-27 11:51 | Outpatient (CLI) | payer MEDICARE, SELFPAY ==
[2024-07-27 11:54] LABS: Adenovirus F 40/41, stool Not Detected (NotDetected); Astrovirus Not Detected (NotDetected); Campylobacter Not Detected (NotDetected); Clostridium Difficile A/B, PCR Not Detected (NotDetected); Cryptosporidium Not Detected (NotDetected); Cyclospora Cayetanesis Not Detected (NotDetected); Entamoeba histolytica Not Detected (NotDetected); Enteroaggregative E coli Not Detected (NotDetected); Enteropathogenic E coli Not Detected (NotDetected); Enterotoxigenic E coli Not Detected (NotDetected); Giardia lamblia Not Detected (NotDetected); Norovirus Not Detected (NotDetected); Plesimonas Shigalloides, PCR Not Detected (NotDetected); Rotavirus A Not Detected (NotDetected); Salmonella, PCR Not Detected (NotDetected); Sapovirus Not Detected (NotDetected); Shiga-like toxin E coli Not Detected (NotDetected); Shigella Enterovasive E coli Not Detected (NotDetected); Vibrio Cholerae Not Detected (NotDetected); Vibrio, PCR Not Detected (NotDetected); Yersinia Entercolitica, PCR Not Detected (NotDetected)
== END 2024-07-27 23:59 | disposition home or self-care (01) ==
LOC: LAB.DROPOF 11:52
PROVIDERS: PCP Nurse Practitioner; Visit Provider Nurse Practitioner
DX: R19.7 Diarrhea, unspecified (principal)
CPT/HCPCS: 87506

== ENCOUNTER 2024-08-22 13:32 | Outpatient (CLI) | payer MEDICARE, SELFPAY ==
--- NOTE | 2024-08-22 13:40 | CT_ITS ---
FINAL REPORT TECHNIQUE: Noncontrast CT exam of the abdomen and pelvis. This study was performed with techniques to keep radiation doses as low as reasonably achievable (ALARA). Individualized dose reduction techniques using automated exposure control or adjustment of mA and/or kV according to the patient's size were employed. CLINICAL HISTORY: CHRONIC DIARRHEA COMPARISON: None FINDINGS: Abdomen: Lung bases are clear. Liver, spleen, pancreas and adrenal glands have a normal CT appearance in their limited unenhanced state. The gallbladder is unremarkable in appearance. The kidneys show multiple bilateral renal stones. There are 3 stones in the right renal pelvis, which measure up to 14 mm in size, without producing hydronephrosis. There is a 16 mm stone in the left upper infundibulum, also not causing hydronephrosis. No obvious renal mass is present. There is no evidence of bowel obstruction or bowel wall thickening. Pelvis: No distal ureteral stones are seen. Bladder is decompressed. There is moderate enlargement of the prostate. Bilateral inguinal hernias are present containing fat. There is moderate sigmoid diverticulosis of the colon, without acute inflammatory change. The appendix is normal in appearance. No fluid collection or adenopathy is seen. IMPRESSION: No evidence of bowel obstruction or bowel wall thickening. Significant bilateral renal stones are present. Reviewed, Interpreted and Dictated by Malathi Cortez MD Transcribed by Rocío Bautista Authenticated and [facility]
== END 2024-08-22 23:59 | disposition home or self-care (01) ==
PROVIDERS: PCP Family Medicine; Visit Provider Family Medicine
DX: K52.9 Noninfective gastroenteritis and colitis, unspecified (principal)
CPT/HCPCS: 74176

== ENCOUNTER 2024-08-26 14:54 | Emergency (ER) | payer MEDICARE, SELFPAY ==
[2024-08-26 14:56] VITALS: BP 173/86; PULSE 77; RESP 18; TEMP 36.8; O2SAT 96; BMI 35.9
[2024-08-26 15:01] VITALS: BP 173/86; PULSE 77; O2SAT 96
--- NOTE | 2024-08-26 15:25 | PC.NURSE ---
DR CHAPMAN AT BEDSIDE
--- NOTE | 2024-08-26 15:32 | CT_ITS ---
PROCEDURE INFORMATION: Exam: CT Abdomen And Pelvis With Contrast Exam date and time: 08/26/2024 4:01 PM Age: 79 years old Clinical indication: Abdominal pain; Flank; Right; Additional info: R flank rlq pain TECHNIQUE: Imaging protocol: Computed tomography of the abdomen and pelvis with contrast. Radiation optimization: All CT scans at this facility use at least one of these dose optimization techniques: automated exposure control; mA and/or kV adjustment per patient size (includes targeted exams where dose is matched to clinical indication); or iterative reconstruction. Contrast material: ISOVUE; Contrast volume: 75 ml; Contrast route: IV; COMPARISON: CT ABDOMEN PELVIS WO CON 08/22/2024 1:48 PM FINDINGS: Lungs: Bibasilar subsegmental atelectasis noted. Liver: No focal hepatic lesions. Gallbladder and biliary ducts: Gallbladder is distended without radiopaque cholelithiasis. No biliary ductal dilation. Pancreas: No peripancreatic fluid stranding. No main pancreatic ductal dilation. Spleen: No splenomegaly. Adrenal glands: The adrenal glands are normal. Kidneys and ureters: Bilateral nonobstructive nephrolithiasis noted. There is mild right hydronephrosis proximal to 3 x 2 x 3 mm calculus in the proximal ureter, new from prior exam. Mild right perinephric stranding. Nephrograms are symmetric. Stomach and bowel: Scattered colonic diverticula without acute inflammatory change. Appendix: A normal appendix is identified. Intraperitoneal space: Unremarkable. No free air. No significant fluid collection. Vasculature: The aorta demonstrates mild atherosclerotic calcification. The aorta demonstrates moderate atherosclerotic calcification. 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 No enlarged lymph nodes. Urinary bladder: Urinary bladder is unremarkable. Reproductive: Prostate is enlarged measuring 5.7 x 7.6 x 7.3 cm. Bones/joints: No acute osseous abnormality. Soft tissues: Unremarkable. IMPRESSION: 1. There is mild right hydronephrosis proximal to 3 x 2 x 3 mm calculus in the proximal ureter, new from prior exam. 2. Unchanged bilateral nonobstructive nephrolithiasis burden.
--- NOTE | 2024-08-26 15:34 | ED_ITS ---
Discharge Plan Disposition Patient Disposition: Home, Self-Care Prescriptions Prescriptions: New tamsulosin 0.4 mg capsule 0.4 mg PO DAILY Qty: 20 0RF Rx Instructions: Do not combine with other tamsulosin ondansetron 4 mg tablet,disintegrating 4 mg PO Q8H PRN (Reason: nausea and vomiting) 4 Days Qty: 12 0RF oxycodone 5 mg tablet 5 mg PO Q8H PRN (Reason: pain not responsive to Tylenol and ibuprofen) Qty: 6 0RF No Action mecobalamin (vitamin B12) 500 mcg tablet,chewable See Rx Instructions PO .COMPLEX Rx Instructions: orally daily; Invokamet 50-1,000 mg tablet 1 tab PO ONCE cholecalciferol (vitamin D3) 50 mcg (2,000 unit) capsule 50 mcg PO DAILY metoprolol succinate 100 mg tablet extended release 24 hr 100 mg PO DAILY metformin 1,000 mg tablet 1,000 mg PO BID pravastatin 40 mg tablet 40 mg PO QHS aspirin [Adult Low Dose Aspirin] 81 mg tablet,delayed release (DR/EC) 81 mg PO DAILY flaxseed oil [Ventura-3 Flaxseed Oil] 1,000 mg capsule 3,000 mg PO DAILY rqmswlqrbqes-Lz-pswj-minerals [Maximum Daily Multivitamin] 18-0.4 mg tablet 1 tab PO DAILY coenzyme Q10 100 mg capsule 100 mg PO DAILY tamsulosin 0.4 mg capsule,extended release 24hr 0.4 mg PO ONCE nitroglycerin 0.4 mg tablet, sublingual 0.4 mg SUBLINGUAL Q5M PRN (Reason: Chest Pain) glucosamine sulfate [Glucosamine] 500 mg tablet 500 mg PO BID amlodipine 5 mg tablet 10 mg PO DAILY glimepiride 4 mg tablet 4 mg PO BID meloxicam 15 mg tablet 7.5 mg PO Q OTHER DAY fluticasone propionate 50 mcg/actuation spray,suspension 1 spray INTRANASAL DAILY PRN (Reason: ALLERGIES) 60 Days Qty: 16 furosemide 20 mg tablet 20 mg PO DAILY 90 Days Qty: 90 losartan 50 mg tablet 50 mg PO BID 90 Days Qty: 180 isosorbide mononitrate 30 mg tablet extended release 24 hr 60 mg PO DAILY clopidogrel 75 mg tablet 75 mg PO DAILY Patient Comments: TAKE 1 TABLET BY MOUTH ONCE DAILY pregabalin [Lyrica] 150 mg capsule 150 mg PO HS ondansetron 4 mg tablet,disintegrating 4 mg PO Q8H PRN (Reason: nausea and vomiting) Qty: 10 0RF cefdinir 300 mg capsule 300 mg PO BID Qty: 20 0RF ondansetron 4 mg tablet,disintegrating 4 mg PO Q8H PRN (Reason: nausea and vomiting) Qty: 10 0RF pregabalin 200 mg capsule 200 mg PO HS PRN (Reason: neur) Qty: 90 2RF Referrals Follow up/Referrals: Malathi Lopes MD [Primary Care Provider] - See instructions Activity Restrictions/Add. Instructions Additional Instructions/Restrictions: At this time it was felt you are safe to be discharged home. If new or worsening symptoms please do not hesitate to return the emergency department. For pain control please take Tylenol 1000 mg and ibuprofen 600 mg every 6 hours as needed with food. Take your Zofran as needed for nausea. If your pain persist despite taking Tylenol, ibuprofen, your oxycodone for breakthrough pain or you run a fever please return to the emergency department or call and schedule appoint with Dr. Carmichael at [phone]. Clinical Impressions Clinical Impression: Ureterolithiasis Print Language Print Language: Malay Discharge ED Provider: Brian Worrell General Adult HPI General Chief complaint: Abdominal Pain Stated complaint: lower right side pain, stress Time Seen by Provider: 08/26/24 15:09 Mode of Arrival: Ambulatory Source of Information: Patient Limitations: No Limitations Description of Symptoms (Recalled from ER Triage Doc. by RN): PT REPORTS RIGHT LOWER QUAD PAIN SINCE THIS AM. REPORTS NAUSEA History of Present Illness HPI narrative: Patient is a 79-year-old male with past medical history of xwi-tqorpvu-jbgcaejyp diabetes, spinal stenosis of the lumbar region, hypertension, hyperlipidemia, paroxysmal atrial fibrillation presents emergency department for evaluation of right flank and right lower quadrant abdominal pain. Patient twisted in bed this morning and it is difficult for him to tell if this is the inciting event or if it spontaneously happened after he woke up. It has been persistent, moderate in intensity, right flank and right lower quadrant. It is not particularly modifiable. There is no chest pain, no vomiting. Unfortunately his daughter overnight and he is grieving as well. No other acute complaints at this time. Related Data Home Medications ?Medication ?Instructions ?Recorded ?Confirmed aspirin 81 mg tablet,delayed 81 mg PO DAILY Heartburn 02/01/18 10/11/23 release (Adult Low Dose Aspirin) coenzyme Q10 100 mg capsule 100 mg PO DAILY Supplement 02/01/18 10/11/23 flaxseed oil 1,000 mg capsule 3,000 mg PO DAILY Supplement 02/01/18 10/11/23 (Ventura-3 Flaxseed Oil) metformin 1,000 mg tablet 1,000 mg PO BID Diabetes 02/01/18 10/11/23 metoprolol succinate 100 mg 100 mg PO DAILY BLOOD PRESSURE 02/01/18 10/11/23 tablet,extended release 24 hr ezspyasezsjw-Cq-mpwf-minerals 18 1 tab PO DAILY Supplement 02/01/18 10/11/23 mg-0.4 mg tablet (Maximum Daily Multivitamin) nitroglycerin 0.4 mg sublingual 0.4 mg sublingual Q5M PRN Chest 02/01/18 10/11/23 tablet Pain pravastatin 40 mg tablet 40 mg PO QHS Cholesterol 02/01/18 10/11/23 tamsulosin 0.4 mg capsule 0.4 mg PO ONCE BPH 02/01/18 10/11/23 fluticasone propionate 50 1 spray intranasal DAILY PRN 08/09/18 10/11/23 mcg/actuation nasal ALLERGIES 60 days #16 grams spray,suspension furosemide 20 mg tablet 20 mg PO DAILY FLUIDS 90 days #90 08/09/18 10/11/23 tabs losartan 50 mg tablet 50 mg PO BID BLOOD PRESSURE 90 08/09/18 10/11/23 days #180 tabs glucosamine sulfate 500 mg tablet 500 mg PO BID Supplement 02/06/19 10/11/23 (Glucosamine) amlodipine 5 mg tablet 10 mg PO DAILY BLOOD PRESSURE 04/11/20 10/11/23 clopidogrel 75 mg tablet 75 mg PO DAILY Blood thinner 04/11/20 10/11/23 glimepiride 4 mg tablet 4 mg PO BID Diabetes 04/11/20 10/11/23 isosorbide mononitrate 30 mg 60 mg PO DAILY heart 04/11/20 10/11/23 tablet,extended release 24 hr meloxicam 15 mg tablet 7.5 mg PO Q OTHER DAY Arthritis 04/11/20 10/11/23 canagliflozin 50 mg-metformin 1 tab PO ONCE Diabetes 03/09/23 10/11/23 1,000 mg tablet (Invokamet) cholecalciferol (vitamin D3) 50 50 mcg PO DAILY SUPPLIMENT 03/09/23 10/11/23 mcg (2,000 unit) capsule mecobalamin (vitamin B12) 500 mcg See Rx Instructions PO .COMPLEX 03/09/23 10/11/23 chewable tablet SUPPLIMENT pregabalin 150 mg capsule (Lyrica) 150 mg PO HS Pain 06/22/23 10/11/23 Previous Rx's ?Medication ?Instructions ?Recorded pregabalin 200 mg capsule 200 mg PO HS PRN neur #90 caps 01/06/24 cefdinir 300 mg capsule 300 mg PO BID #20 caps 07/28/24 ondansetron 4 mg disintegrating 4 mg PO Q8H PRN nausea and 07/28/24 tablet vomiting #10 tabs ondansetron 4 mg disintegrating 4 mg PO Q8H PRN nausea and 08/02/24 tablet vomiting #10 tabs ondansetron 4 mg disintegrating 4 mg PO Q8H PRN nausea and 08/26/24 tablet vomiting 4 days #12 tabs oxycodone 5 mg tablet 5 mg PO Q8H PRN pain not 08/26/24 responsive to Tylenol and ibuprofen #6 tabs tamsulosin 0.4 mg capsule 0.4 mg PO DAILY Kidney stone #20 08/26/24 caps Allergies Allergy/AdvReac Type Severity Reaction Status Date / Time gabapentin AdvReac Verified 06/25/23 07:40 [facility] Disclaimer: The information contained in this section may have been updated after the patient was seen, as this information can be updated by other users. Medical History (Updated 08/26/24 @ 17:57 by Brian Worrell MD) Sacroiliitis Sinus problem CLAUDIO (obstructive sleep apnea) AMI (acute myocardial infarction) Arthritis HTN (hypertension) HLD (hyperlipidemia) Diabetes CAD (coronary artery disease) Afib Surgical History H/O cardiac radiofrequency ablation H/O vasectomy H/O colonoscopy History of cardiac cath H/O arthroscopic knee surgery History of tonsillectomy Family History Other Family history of COPD (chronic obstructive pulmonary disease) Family history of hypertension No significant family history Social History Smoking Status: Former smoker tobacco type: cigars second hand exposure: No alcohol intake: never substance use type: denies use current occupational status: other Travel in the last 8 weeks: None household members: spouse housing: house current occupational exposures/hazards: No caffeine: Yes ROS Obtained: Yes Systems reviewed as appropriate & no additional complaints except as documented Physical Exam General General appearance: alert and in no apparent distress Head Head exam: atraumatic and normocephalic Eye Eye exam: Present PERRL ENT ENT exam: Present mucous membranes moist Neck Neck exam: Present normal inspection Chest Chest inspection: Present normal inspection and symmetric chest wall rise Respiratory Respiratory exam: Present normal lung sounds bilaterally; Absent respiratory distress Cardiovascular Cardiovascular exam: Present regular rate and normal rhythm Abdominal Exam Abdominal exam: Present soft, tenderness (Mild, right lower quadrant, right flank) and other (No CVA tenderness bilaterally); Absent guarding or rebound Extremities Exam Extremities exam: Present normal inspection Neurological Exam Neurological exam: Present alert Psychiatric Psychiatric exam: Present normal affect Skin Skin exam: Present warm and dry Medical Decision Making Medical Records Screening: Per USPSTF and CDC recommendations, given the prevalence of disease in our region, it is our hospital?s policy to screen for HIV and viral Hepatitis for all patients aged 18 and over and those with ongoing risk factors. [place] Inquiry Pt receiving controlled substance: No Vital Signs: 08/26/24 14:56 08/26/24 15:01 08/26/24 16:24 Temperature 98.3 F Temperature Source Oral Pulse Rate 77 65 Pulse Rate [Radial] 77 Respiratory Rate 18 Blood Pressure 173/86 H 136/62 Blood Pressure [Left Arm] 173/86 H Blood Pressure Mean [Left Arm] 115 Blood Pressure Source [Left Arm] Automatic Cuff Blood Pressure Position [Left Arm] Sitting 02 Sat by Pulse Oximetry 96 96 92 L Oxygen Delivery Method Room Air Room Air Room Air 08/26/24 16:30 08/26/24 17:01 Temperature Temperature Source Pulse Rate 66 64 Pulse Rate [Radial] Respiratory Rate Blood Pressure 150/68 H 163/74 H Blood Pressure [Left Arm] Blood Pressure Mean [Left Arm] Blood Pressure Source [Left Arm] Blood Pressure Position [Left Arm] 02 Sat by Pulse Oximetry 90 L 93 L Oxygen Delivery Method Room Air Room Air Lab Data Lab Results 08/26/24 15:15: WBC 10.7, RBC 4.98, Hgb 15.1, Hct 48.7, MCV 97.8 H, MCH 30.3, M CHC 31.0 L, RDW 14.6, Plt Count 292, MPV 7.8, Neut % (Auto) 71.7, Lymph % (Auto) 18.2, Parker % (Auto) 6.0, Eos % (Auto) 3.5, Baso % (Auto) 0.6, Neut # (Auto) 7.6, Lymph # (Auto) 1.9, Parker # (Auto) 0.6, Eos # (Auto) 0.4, Baso # (Auto) 0.1, Sodium 141, Potassium 4.1, Chloride 105, Carbon Dioxide 28, Anion Gap 12.1, BUN 11, Creatinine 0.90, Estimated Creat Clear 104, Estimated GFR 82, Est GFR ( Amer) 99, Glucose 244 H, Calcium 9.7, Total Bilirubin 0.8, AST 28, ALT 32, Alkaline Phosphatase 70, Total Protein 7.0, Albumin 4.3, Globulin 2.7, Albumin/Globulin Ratio 1.6, Lipase 50, HIV 1&2 Antibody Rapid Nonreactive 08/26/24 17:20: Urine Color Yellow, Urine Appearance Clear, Urine pH 6.0, Ur Specific High View 1.025, Urine Protein 3+ A, Urine Glucose (UA) Trace, Urine Ketones Negative, Urine Blood 3+ A, Urine Nitrate Negative, Urine Bilirubin Negative, Urine Urobilinogen 0.2, Ur Leukocyte Esterase Negative, Urine RBC 50- 100, Urine WBC Occasional, Ur Squamous Epith Cells Occasional, Urine Bacteria Trace 08/26/24 15:15 08/26/24 15:15 Orders (Tests/Meds): ED MEDICATIONS Discontinued Medications Generic Name Dose Route Start Last Admin Trade Name Freq PRN Reason Stop Dose Admin Acetaminophen 1,000 mg 08/26/24 15:32 08/26/24 15:53 Acetaminophen 1,000mg/100ml Vial IV 08/26/24 15:33 1,000 mg ONCE ONE Administration Iopamidol 75 ml 08/26/24 16:05 08/26/24 16:14 Iopamidol-370 (76%);100ml Bottle IV 08/26/24 16:06 75 ml ONCE ONE Administration Ketorolac Tromethamine 30 mg 08/26/24 15:32 08/26/24 15:52 Ketorolac 30mg/Ml Vial IV 08/26/24 15:33 30 mg ONCE ONE Administration Morphine Sulfate 4 mg 08/26/24 15:32 08/26/24 15:52 Morphine 4mg/Ml Syringe IV 08/26/24 15:33 4 mg ONCE ONE Administration Ondansetron HCl 4 mg 08/26/24 15:32 08/26/24 15:52 Ondansetron 4mg/2ml Vial IV 08/26/24 15:33 4 mg ONCE ONE Administration Sodium Chloride 10 ml 08/26/24 16:05 08/26/24 16:14 Sodium Chloride 0.9% 10ml Syr (Rad Only) IV 08/26/24 16:06 10 ml ONCE ONE Administration ORDERS Category Date Time Status CT abdomen pelvis w con Stat Cat Scan 08/26/24 15:32 Completed CBC w/Auto Diff [Complete Blood Count Auto Diff] Stat Lab 08/26/24 15:15 Completed CMP [Comprehensive Metabolic Panel] Stat Lab 08/26/24 15:15 Completed HIV (1&2) Antibody Rapid Stat Lab 08/26/24 15:15 Completed Hep C Ab with Reflex to RNA Stat Lab 08/26/24 15:15 Received Lipase Stat Lab 08/26/24 15:15 Completed UA [Urinalysis and Microscopic] Stat Lab 08/26/24 17:20 Completed Medical Decision Narrative: In summary patient is a 79-year-old male past medical history described above presents emergency department for evaluation of right lower quadrant abdominal pain and right flank abdominal pain. Patient is hemodynamically stable nontoxic-appearing upon arrival, afebrile, mild tenderness right lower quadrant. Differential diagnosis includes appendicitis, cholecystitis, ureterolithiasis, lumbar ago, among others. Workup will be conducted with hematologic labs, urinalysis, CT abdomen pelvis IV contrast. Initial inventions include multimodal pain control. Initial workup reviewed by me, hematologic labs are nonactionable, no significant leukocytosis, no JEAN-PIERRE or critical electrolyte under. CT imaging informally interpreted by me and there appears to be an obstructing right proximal ureteral stone. Formal read there is a 3 mm proximal ureteral stone, unchanged bilateral nonobstructive nephrolithiasis. Urinalysis interpreted by me and not consistent with infection. Given that patient does not have an infected stone and has normal kidney function upon repeat evaluation patient acceptable level of pain and patient is appropriate for outpatient management at this time. Critical Care Critical Care Time Critical Care Time: No
[2024-08-26 15:38] LABS: Basophils # 0.1 K/mm3 (0-0.2); Basophils % 0.6 % (0.1-2.0); Eosinophils # 0.4 K/mm3 (0.0-0.4); Eosinophils % 3.5 % (0.1-12.0); Hematocrit 48.7 % (42.0-52.0); Hemoglobin 15.1 g/dL (14.1-18.0); Lymphocytes # 1.9 K/mm3 (0.7-4.5); Lymphocytes % 18.2 % (10-50); Mean Corpuscular Hemoglobin 30.3 pg (27.0-31.2); Mean Corpuscular Volume 97.8 fl (80-94); Mean Platelet Volume 7.8 fl (7.4-10.4); Monocytes # 0.6 K/mm3 (0.1-1.0); Neutrophils # 7.6 K/mm3 (1.8-7.8); Neutrophils % 71.7 % (37.0-80.0); Platelet Count 292 K/mm3 (142-424); Red Blood Count 4.98 M/mm3 (4.60-6.20); Red Cell Distribution Width 14.6 % (11.5-17.5); White Blood Count 10.7 K/mm3 (4.8-10.8)
[2024-08-26 15:40] LABS: Albumin Level 4.3 g/dl (3.5-5.0); Chloride 105 mmol/L (98-107); Potassium 4.1 mmoL/L (3.5-5.1); Sodium 141 mmol/L (136-145)
[2024-08-26 15:42] LABS: Blood Urea Nitrogen 11 mg/dl (9-20); Creatinine Clearance Estimated 104 mL/min (50-200); Estimated Glomerular Filt Rate 82 ml/min (>60); GFR (African American) 99 ML/MIN (>60)
[2024-08-26 15:43] LABS: Alanine Aminotransferase 32 U/L (12-78); Albumin/Globulin Ratio 1.6 (1.1-1.8); Alkaline Phosphatase 70 U/L (38-126); Anion Gap 12.1 mEq/L (5-15); Aspartate Amino Transferase 28 U/L (17-59); Bilirubin,Total 0.8 mg/dl (0.2-1.3); Calcium 9.7 mg/dl (8.4-10.2); Carbon Dioxide 28 mmol/L (22.0-30.0); Globulin 2.7 g/dL (1.3-3.2); Glucose 244 mg/dl (74-100); Lipase 50 U/L (23-300)
[2024-08-26] MEDS: KETOROLAC 30MG/ML VIAL 30 MG IV (15:52)
[2024-08-26] MEDS: MORPHINE 4MG/ML SYRINGE 4 MG IV (15:52)
[2024-08-26] MEDS: ONDANSETRON 4MG/2ML VIAL 4 MG IV (15:52)
[2024-08-26] MEDS: ACETAMINOPHEN 1,000MG/100ML VIAL 1000 MG IV (15:53)
[2024-08-26 15:55] LABS: HIV (1&2) Antibody Rapid NONREACTIVE (NONREACTIVE)
--- NOTE | 2024-08-26 16:06 | PC.NURSE ---
PT PROVIDED RECLINER, WARM BLANKET AND URINAL. CALL LIGHT WITHIN REACH. FAMILY AT BEDSIDE
--- NOTE | 2024-08-26 16:10 | PC.NURSE ---
PT RETURNED FROM CT
[2024-08-26] MEDS: SODIUM CHLORIDE 0.9% 10ML SYR (RAD ONLY) 10 ML IV (16:14)
[2024-08-26] MEDS: IOPAMIDOL-370 (76%);100ML BOTTLE 75 ML IV (16:14)
[2024-08-26 16:24] VITALS: BP 136/62; PULSE 65; O2SAT 92
[2024-08-26 16:30] VITALS: BP 150/68; PULSE 66; O2SAT 90
[2024-08-26 17:01] VITALS: BP 163/74; PULSE 64; O2SAT 93
--- NOTE | 2024-08-26 17:21 | PC.NURSE ---
urine sample collected and sent to lab at this time
[2024-08-26 17:33] LABS: Appearance,Urine CLEAR (Clear); Bilirubin,Urine Negative (Negative); Blood, Urine 3+ (Negative); Color,Urine YELLOW (Yellow); Glucose,Urine (UA) TRACE (Negative); Ketones,Urine Negative (Negative); Leukocyte Esterase,Urine Negative (Negative); Microscopic, Urine URINE MICROSCOPIC (MICROSCOPIC); Nitrate,Urine Negative (Negative); Protein,Urine 3+ (Negative); Specific Gravity, Urine 1.025 (1.005-1.030); Urobilinogen,Urine 0.2 EU/dl (0.2)
[2024-08-26 17:39] LABS: Bacteria,Urine Trace /lpf; RBC,Urine 50-100 #/hpf (0-3); Squamous Epithelial Cell,Urine Occasional #/hpf (0-5); WBC,Urine Occasional #/hpf (0-3)
--- NOTE | 2024-08-26 17:42 | PC.NURSE ---
DR CHAPMAN AT BEDSIDE TO UPDATE PT AND FAMILY
[2024-08-26] MEDS: TAMSULOSIN 0.4MG CAPSULE 0.4 MG PO (18:02)
[2024-08-26 18:05] VITALS: BP 155/73; PULSE 70; RESP 18; TEMP 36.6; O2SAT 95
[2024-08-28 11:10] LABS: HCV Ab Non Reactive (Non Reactive)
== END 2024-08-26 18:05 | disposition home or self-care (01) ==
PROVIDERS: Emergency Provider Emergency Medicine; PCP Family Medicine
DX: N13.0 Hydronephrosis with ureteropelvic junction obstruction (principal); R10.31 Right lower quadrant pain; R11.0 Nausea
CPT/HCPCS: 74177; 80053; 81001; 83690; 85025; 86803; 87389; 96374; 96375; 99285; J0131; J1885; J2270; J2405; Q9967

== ENCOUNTER 2024-09-01 16:07 | Emergency (ER) | payer MEDICARE, SELFPAY ==
[2024-09-01 16:07] VITALS: BP 174/82; PULSE 62; RESP 20; TEMP 36.4; O2SAT 94; BMI 36.6
--- NOTE | 2024-09-01 16:23 | CT_ITS ---
PROCEDURE INFORMATION: Exam: CT Abdomen And Pelvis Without Contrast Exam date and time: 09/01/2024 5:42 PM Age: 79 years old Clinical indication: Other: Recent stone , abdomen pain; Additional info: AMS, recent stone, abd pain TECHNIQUE: Imaging protocol: Computed tomography of the abdomen and pelvis without contrast. Radiation optimization: All CT scans at this facility use at least one of these dose optimization techniques: automated exposure control; mA and/or kV adjustment per patient size (includes targeted exams where dose is matched to clinical indication); or iterative reconstruction. COMPARISON: CT ABDOMEN PELVIS W CON 08/26/2024 4:01 PM FINDINGS: Lungs: Lung bases are clear. Liver: Normal. No mass. Gallbladder and biliary ducts: Normal. No calcified stones. No ductal dilation. Pancreas: Normal. No ductal dilation. Spleen: Normal. No splenomegaly. Adrenal glands: Normal. No mass. Kidneys and ureters: Interval development of a 11 mm obstructing stone in the right ureteropelvic junction with gvsz-xt-rxyojdcy right hydronephrosis. Additional 13 mm nonobstructing stone posterior mid right kidney and 14 mm nonobstructing stone posterior mid left kidney. Course and caliber of both ureters otherwise unremarkable. Stomach and bowel: Multiple diverticula of the sigmoid and descending colon. Colon otherwise unremarkable with no evidence of diverticulitis. GI tract structures otherwise unremarkable with no evident wall thickening allowing for incomplete distention. Appendix: Appendix is normal. No evidence of appendicitis. Intraperitoneal space: Unremarkable. No free air. No significant fluid collection. Vasculature: Atherosclerotic changes of the aorta and iliacs noted. No evidence of aneurysm. Lymph nodes: Unremarkable. No enlarged lymph nodes. Urinary bladder: Unremarkable as visualized. Reproductive: Unremarkable as visualized. Bones/joints: Unremarkable. No acute fracture. Soft tissues: Small fat containing inguinal hernias xdaz-pulzjjv-xlqh-right redemonstrated. IMPRESSION: 1. Interval development of 11 mm obstructing stone in the right ureteropelvic junction with latj-oh-vswtqehq right hydronephrosis. 2. Bilateral nonobstructing kidney stones.
--- NOTE | 2024-09-01 16:23 | CT_ITS ---
PROCEDURE INFORMATION: Exam: CT Head Without Contrast Exam date and time: 09/01/2024 5:40 PM Age: 79 years old Clinical indication: Altered mental status/memory loss; Additional info: AMS TECHNIQUE: Imaging protocol: Computed tomography of the head without contrast. Radiation optimization: All CT scans at this facility use at least one of these dose optimization techniques: automated exposure control; mA and/or kV adjustment per patient size (includes targeted exams where dose is matched to clinical indication); or iterative reconstruction. COMPARISON: CT ANGIO HEAD 03/24/2023 1:30 PM FINDINGS: Brain: Ixmw-vr-urwuhxjb atrophy. No intracranial hemorrhage. No mass. Few scattered foci of decreased attenuation within periventricular/subcortical white matter. No definite edema. Cerebral ventricles: No hydrocephalus. Paranasal sinuses: No acute sinusitis. Mastoid air cells: No significant effusion. Orbital cavities: Unremarkable as visualized. Bones: No acute fracture. Soft tissues: Unremarkable. Vasculature: Atherosclerotic disease of intracranial arteries. IMPRESSION: Probable chronic microvascular ischemic changes. If symptoms persist, consider MRI.
--- NOTE | 2024-09-01 16:23 | XR_ITS ---
PROCEDURE INFORMATION: Exam: XR Chest Exam date and time: 09/01/2024 5:32 PM Age: 79 years old Clinical indication: Dyspnea TECHNIQUE: Imaging protocol: Radiologic exam of the chest. Views: 1 view. COMPARISON: CR XR CHEST 2V 07/24/2024 3:28 PM FINDINGS: Lungs: Bibasilar discoid and subsegmental atelectasis redemonstrated. Lung hillman otherwise clear. Pleural spaces: Unremarkable. No pleural effusion. No pneumothorax. Heart/Mediastinum: Unremarkable. No cardiomegaly. Bones/joints: Unremarkable. IMPRESSION: Stable chest x-ray with no acute disease.
[2024-09-01 16:30] VITALS: BP 186/89; PULSE 74; O2SAT 93
[2024-09-01] MEDS: LACTATED RINGERS 1000ML 1,000 ML 999 ML IV (16:30)
--- NOTE | 2024-09-01 16:35 | PC.NURSE ---
family at bedside
[2024-09-01 16:38] LABS: Lactate Venous 2.5 mmol/L (0.4-2.0); VBG HCO3 24.5 mmol/L (23-30); VBG Oxygen Saturation 96.2 % (50-70); VBG PCO2 38.6 mmol/L (35-51); VBG PH 7.42 mmol/L (7.31-7.41); VBG PO2 80.3 mmol/L (28-40); VBG Total CO2 25.7 mmol/L (23-27)
[2024-09-01 16:42] LABS: Basophils # 0.1 K/mm3 (0-0.2); Basophils % 0.7 % (0.1-2.0); Eosinophils # 0.4 K/mm3 (0.0-0.4); Eosinophils % 3.5 % (0.1-12.0); Hematocrit 45.8 % (42.0-52.0); Hemoglobin 14.4 g/dL (14.1-18.0); Lymphocytes # 1.5 K/mm3 (0.7-4.5); Lymphocytes % 14.1 % (10-50); Mean Corpuscular HGB Conc 31.5 g/dL (31.8-35.4); Mean Corpuscular Hemoglobin 29.4 pg (27.0-31.2); Mean Corpuscular Volume 93.3 fl (80-94); Mean Platelet Volume 8.7 fl (7.4-10.4); Monocytes # 0.6 K/mm3 (0.1-1.0); Neutrophils # 8.1 K/mm3 (1.8-7.8); Neutrophils % 75.8 % (37.0-80.0); Platelet Count 272 K/mm3 (142-424); Red Blood Count 4.91 M/mm3 (4.60-6.20); Red Cell Distribution Width 14.7 % (11.5-17.5); White Blood Count 10.7 K/mm3 (4.8-10.8)
--- NOTE | 2024-09-01 16:42 | ED_ITS ---
Discharge Plan Disposition Chief Complaint: PAIN Prescriptions Prescriptions: No Action mecobalamin (vitamin B12) 500 mcg tablet,chewable See Rx Instructions PO .COMPLEX Rx Instructions: orally daily; Invokamet 50-1,000 mg tablet 1 tab PO ONCE cholecalciferol (vitamin D3) 50 mcg (2,000 unit) capsule 50 mcg PO DAILY metoprolol succinate 100 mg tablet extended release 24 hr 100 mg PO DAILY metformin 1,000 mg tablet 1,000 mg PO BID pravastatin 40 mg tablet 40 mg PO QHS aspirin [Adult Low Dose Aspirin] 81 mg tablet,delayed release (DR/EC) 81 mg PO DAILY flaxseed oil [Harrington-3 Flaxseed Oil] 1,000 mg capsule 3,000 mg PO DAILY [id number]-minerals [Maximum Daily Multivitamin] 18-0.4 mg tablet 1 tab PO DAILY coenzyme Q10 100 mg capsule 100 mg PO DAILY tamsulosin 0.4 mg capsule,extended release 24hr 0.4 mg PO ONCE nitroglycerin 0.4 mg tablet, sublingual 0.4 mg SUBLINGUAL Q5M PRN (Reason: Chest Pain) glucosamine sulfate [Glucosamine] 500 mg tablet 500 mg PO BID amlodipine 5 mg tablet 10 mg PO DAILY glimepiride 4 mg tablet 4 mg PO BID meloxicam 15 mg tablet 7.5 mg PO Q OTHER DAY fluticasone propionate 50 mcg/actuation spray,suspension 1 spray INTRANASAL DAILY PRN (Reason: ALLERGIES) 60 Days Qty: 16 furosemide 20 mg tablet 20 mg PO DAILY 90 Days Qty: 90 losartan 50 mg tablet 50 mg PO BID 90 Days Qty: 180 isosorbide mononitrate 30 mg tablet extended release 24 hr 60 mg PO DAILY clopidogrel 75 mg tablet 75 mg PO DAILY Patient Comments: TAKE 1 TABLET BY MOUTH ONCE DAILY pregabalin [Lyrica] 150 mg capsule 150 mg PO HS ondansetron 4 mg tablet,disintegrating 4 mg PO Q8H PRN (Reason: nausea and vomiting) Qty: 10 0RF cefdinir 300 mg capsule 300 mg PO BID Qty: 20 0RF ondansetron 4 mg tablet,disintegrating 4 mg PO Q8H PRN (Reason: nausea and vomiting) Qty: 10 0RF pregabalin 200 mg capsule 200 mg PO HS PRN (Reason: neur) Qty: 90 2RF tamsulosin 0.4 mg capsule 0.4 mg PO DAILY Qty: 20 0RF Rx Instructions: Do not combine with other tamsulosin ondansetron 4 mg tablet,disintegrating 4 mg PO Q8H PRN (Reason: nausea and vomiting) 4 Days Qty: 12 0RF oxycodone 5 mg tablet 5 mg PO Q8H PRN (Reason: pain not responsive to Tylenol and ibuprofen) Qty: 6 0RF Referrals Follow up/Referrals: Malathi Lopes MD [Primary Care Provider] - See instructions Clinical Impressions Clinical Impression: Hydronephrosis with renal and ureteral calculous obstruction, Confusion, Abdominal pain Print Language Print Language: Romanian Discharge ED Provider: Edson Perez General Adult HPI General Chief complaint: PAIN Stated complaint: Known Kidney stone/AMS/back pain Time Seen by Provider: 09/01/24 16:13 Mode of Arrival: EMS Source of Information: Patient and EMS Limitations: No Limitations Description of Symptoms (Recalled from ER Triage Doc. by RN): Patient presents to ED via [facility] with pain to his lower right abdomen. Patient was dx with a kidney stone on wednesday to his left side. Daughter called EMS due to patient increased confusion at times. Patient is A/O x4 but states he has recalled times that he has had increased confusion. History of Present Illness HPI narrative: Patient is a 79-year-old male present today with multiple complaints. He states that he called EMS because he got out of bed and he was confused. Patient states that he missed took his CPAP machine for a phone which prompted him to realize that he was confused. He also states he had a headache and a cough that exacerbates that headache. No neck stiffness no sudden component of this no photophobia no fevers or meningismus from historical standpoint. Patient states that his cough is only been going on today no increased sputum production or wheezing he does have a history of COPD he states. From a chart review standpoint he has diabetes also has atrial fibrillation the patient did admit to being anticoagulated but he states the reason he is anticoagulated is because I am old and fat. Patient denies any significant abdominal pain from historical standpoint but he does have a recent diagnosis of an obstructing ureterolithiasis and has had 2 CT scans in the last several weeks. He denies any dysuria hematuria does have urinary frequency but states this is chronic. Denies any other discomfort anywhere else. Has been compliant with the CPAP states. Related Data Home Medications ?Medication ?Instructions ?Recorded ?Confirmed aspirin 81 mg tablet,delayed 81 mg PO DAILY Heartburn 02/01/18 10/11/23 release (Adult Low Dose Aspirin) coenzyme Q10 100 mg capsule 100 mg PO DAILY Supplement 02/01/18 10/11/23 flaxseed oil 1,000 mg capsule 3,000 mg PO DAILY Supplement 02/01/18 10/11/23 (Harrington-3 Flaxseed Oil) metformin 1,000 mg tablet 1,000 mg PO BID Diabetes 02/01/18 10/11/23 metoprolol succinate 100 mg 100 mg PO DAILY BLOOD PRESSURE 02/01/18 10/11/23 tablet,extended release 24 hr [id number]-minerals 18 1 tab PO DAILY Supplement 02/01/18 10/11/23 mg-0.4 mg tablet (Maximum Daily Multivitamin) nitroglycerin 0.4 mg sublingual 0.4 mg sublingual Q5M PRN Chest 02/01/18 10/11/23 tablet Pain pravastatin 40 mg tablet 40 mg PO QHS Cholesterol 02/01/18 10/11/23 tamsulosin 0.4 mg capsule 0.4 mg PO ONCE BPH 02/01/18 10/11/23 fluticasone propionate 50 1 spray intranasal DAILY PRN 08/09/18 10/11/23 mcg/actuation nasal ALLERGIES 60 days #16 grams spray,suspension furosemide 20 mg tablet 20 mg PO DAILY FLUIDS 90 days #90 08/09/18 10/11/23 tabs losartan 50 mg tablet 50 mg PO BID BLOOD PRESSURE 90 08/09/18 10/11/23 days #180 tabs glucosamine sulfate 500 mg tablet 500 mg PO BID Supplement 02/06/19 10/11/23 (Glucosamine) amlodipine 5 mg tablet 10 mg PO DAILY BLOOD PRESSURE 04/11/20 10/11/23 clopidogrel 75 mg tablet 75 mg PO DAILY Blood thinner 04/11/20 10/11/23 glimepiride 4 mg tablet 4 mg PO BID Diabetes 04/11/20 10/11/23 isosorbide mononitrate 30 mg 60 mg PO DAILY heart 04/11/20 10/11/23 tablet,extended release 24 hr meloxicam 15 mg tablet 7.5 mg PO Q OTHER DAY Arthritis 04/11/20 10/11/23 canagliflozin 50 mg-metformin 1 tab PO ONCE Diabetes 03/09/23 10/11/23 1,000 mg tablet (Invokamet) cholecalciferol (vitamin D3) 50 50 mcg PO DAILY SUPPLIMENT 03/09/23 10/11/23 mcg (2,000 unit) capsule mecobalamin (vitamin B12) 500 mcg See Rx Instructions PO .COMPLEX 03/09/23 10/11/23 chewable tablet SUPPLIMENT pregabalin 150 mg capsule (Lyrica) 150 mg PO HS Pain 06/22/23 10/11/23 Previous Rx's ?Medication ?Instructions ?Recorded pregabalin 200 mg capsule 200 mg PO HS PRN neur #90 caps 01/06/24 cefdinir 300 mg capsule 300 mg PO BID #20 caps 07/28/24 ondansetron 4 mg disintegrating 4 mg PO Q8H PRN nausea and 07/28/24 tablet vomiting #10 tabs ondansetron 4 mg disintegrating 4 mg PO Q8H PRN nausea and 08/02/24 tablet vomiting #10 tabs ondansetron 4 mg disintegrating 4 mg PO Q8H PRN nausea and 08/26/24 tablet vomiting 4 days #12 tabs oxycodone 5 mg tablet 5 mg PO Q8H PRN pain not 08/26/24 responsive to Tylenol and ibuprofen #6 tabs tamsulosin 0.4 mg capsule 0.4 mg PO DAILY Kidney stone #20 08/26/24 caps Allergies Allergy/AdvReac Type Severity Reaction Status Date / Time gabapentin AdvReac Verified 06/25/23 07:40 PFS PFS Disclaimer: The information contained in this section may have been updated after the patient was seen, as this information can be updated by other users. Medical History (Updated 09/01/24 @ 19:22 by Edson Perez MD) Sacroiliitis Sinus problem CLAUDIO (obstructive sleep apnea) AMI (acute myocardial infarction) Arthritis HTN (hypertension) HLD (hyperlipidemia) Diabetes CAD (coronary artery disease) Afib Surgical History H/O cardiac radiofrequency ablation H/O vasectomy H/O colonoscopy History of cardiac cath H/O arthroscopic knee surgery History of tonsillectomy Family History Other Family history of COPD (chronic obstructive pulmonary disease) Family history of hypertension No significant family history Social History Smoking Status: Never smoker second hand exposure: No alcohol intake: never substance use type: denies use current occupational status: other Travel in the last 8 weeks: None household members: spouse housing: house current occupational exposures/hazards: No caffeine: Yes Other Medical History Have you received the Flu Vaccine for this season: Yes Have you received the Pneumonia Vaccine: No ROS Obtained: Yes All systems reviewed & no additional complaints except as documented Physical Exam General General appearance: alert and in no apparent distress Respiratory Respiratory exam: Present normal lung sounds bilaterally; Absent respiratory distress Cardiovascular Cardiovascular exam: Present regular rate and normal rhythm Abdominal Exam Abdominal exam: Present soft, distention and tenderness (Diffuse tenderness with palpation no rebound or guarding) Neurological Exam Neurological exam: Present alert, oriented X3, CN II-XII intact, normal gait and motor sensory deficit; Absent reflexes normal Medical Decision Making Medical Records Screening: Per USPSTF and CDC recommendations, given the prevalence of disease in our region, it is our hospital?s policy to screen for HIV and viral Hepatitis for all patients aged 18 and over and those with ongoing risk factors. [place] Inquiry Pt receiving controlled substance: No Vital Signs: 09/01/24 16:07 09/01/24 16:30 09/01/24 17:00 Temperature 97.6 F Temperature Source Oral Pulse Rate 74 78 Pulse Rate [Right Brachial] 62 Respiratory Rate 20 Blood Pressure 186/89 H 204/98 H Blood Pressure [Right Arm] 174/82 H Blood Pressure Mean 101 111 Blood Pressure Mean [Right Arm] 112 Blood Pressure Source [Right Arm] Automatic Cuff Blood Pressure Position [Right Arm] Supine 02 Sat by Pulse Oximetry 94 L 93 L 94 L Oxygen Delivery Method Room Air Room Air Room Air 09/01/24 18:01 Temperature Temperature Source Pulse Rate 76 Pulse Rate [Right Brachial] Respiratory Rate Blood Pressure 119/94 H Blood Pressure [Right Arm] Blood Pressure Mean 102 Blood Pressure Mean [Right Arm] Blood Pressure Source [Right Arm] Blood Pressure Position [Right Arm] 02 Sat by Pulse Oximetry 95 Oxygen Delivery Method Room Air Lab Data Lab results reviewed: Yes I reviewed the patient's lab results. Lab Results 09/01/24 16:10: WBC 10.7, RBC 4.91, Hgb 14.4, Hct 45.8, MCV 93.3, MCH 29.4, MCHC 31.5 L, RDW 14.7, Plt Count 272, MPV 8.7, Neut % (Auto) 75.8, Lymph % (Auto) 14.1, [place] % (Auto) 6.0, Eos % (Auto) 3.5, Baso % (Auto) 0.7, Neut # (Auto) 8.1 H, Lymph # (Auto) 1.5, [place] # (Auto) 0.6, Eos # (Auto) 0.4, Baso # (Auto) 0.1, S odium 135 L, Potassium 4.0, Chloride 101, Carbon Dioxide 27, Anion Gap 11.0, BUN 14, Creatinine 1.30 H, Estimated Creat Clear 81, Estimated GFR 53 L, Est GFR ( Amer) 65, Glucose 239 H, Calcium 9.2, Total Bilirubin 0.7, AST 31, ALT 25, Alkaline Phosphatase 68, Troponin I < 0.01, Total Protein 6.9, Albumin 4.1, Globulin 2.8, Albumin/Globulin Ratio 1.5, TSH 2.18 09/01/24 16:25: VBG pH 7.42 H, VBG pCO2 38.6, VBG pO2 80.3 H, VBG HCO3 24.5, VBG Total CO2 25.7, VBG O2 Saturation 96.2 H, VBG Base Excess 0.0, VBG Lactic Acid 2.5 H 09/01/24 16:35: SARS-CoV-2 (PCR) Not detected, Influenza A Untype (PCR) Not detected, Influenza Type B (PCR) Not detected 09/01/24 17:16: Urine Color Yellow, Urine Appearance Clear, Urine pH 7.5, Ur Specific [place] 1.025, Urine Protein 2+ A, Urine Glucose (UA) Trace, Urine Ketones 1+, Urine Blood 1+ A, Urine Nitrate Negative, Urine Bilirubin Negative, Urine Urobilinogen 0.2, Ur Leukocyte Esterase Negative, Urine RBC 20-50, Urine WBC Occasional, Ur Squamous Epith Cells Occasional, Urine Bacteria 1+ 09/01/24 18:37: Ammonia < 9 L 09/01/24 19:44: Troponin I < 0.01 09/01/24 16:10 09/01/24 16:10 Orders (Tests/Meds): ED MEDICATIONS Discontinued Medications Generic Name Dose Route Start Last Admin Trade Name Madeline PRN Reason Stop Dose Admin Acetaminophen 1,000 mg 09/01/24 16:57 09/01/24 17:14 Acetaminophen 1,000mg/100ml Vial IV 09/01/24 16:58 1,000 mg ONCE ONE Administration Lactated Ringer's 1,000 mls @ 999 mls/hr 09/01/24 16:30 09/01/24 16:30 Lactated Ringer's 1000 Ml Bag IV 09/01/24 17:30 999 mls/hr .Q1H1M ADELINA Administration Ketorolac Tromethamine 15 mg 09/01/24 20:09 09/01/24 20:19 Ketorolac 30mg/Ml Vial IV 09/01/24 20:10 15 mg ONCE ONE Administration Morphine Sulfate 4 mg 09/01/24 20:09 09/01/24 20:18 Morphine 4mg/Ml Syringe IV 09/01/24 20:10 4 mg ONCE ONE Administration ORDERS Category Date Time Status CT abdomen pelvis wo con Stat Cat Scan 09/01/24 16:[address] head/brain wo con Stat Cat Scan 09/01/24 16:23 Completed CXR --portable [XR chest portable] Stat Exams 09/01/24 16:23 Completed Ammonia Stat Lab 09/01/24 18:37 Completed CBC w/Auto Diff [Complete Blood Count Auto Diff] Stat Lab 09/01/24 16:10 Completed CMP [Comprehensive Metabolic Panel] Stat Lab 09/01/24 16:10 Completed Lactate Venous Stat Lab 09/01/24 16:25 Ordered Lactic Acid Follow Up (RFLX 1) Stat Lab 09/01/24 20:39 Ordered Rapid PCR Covid and Flu A/B Stat Lab 09/01/24 16:35 Completed TSH [Thyroid Stimulating Hormone] Stat Lab 09/01/24 16:10 Completed Trop I [Troponin I] Stat Lab 09/01/24 16:10 Completed Troponin I Q3H Lab 09/01/24 19:44 Completed Troponin I Q3H Lab 09/01/24 22:30 Ordered UA [Urinalysis and Microscopic] Stat Lab 09/01/24 17:16 Completed Blood Culture Stat Micro 09/01/24 17:08 Received Venous Blood Gas Stat RT 09/01/24 16:25 Completed Medical Decision Narrative: 79-year-old above history and physical. He is subjectively confused however on my exam he has a GCS of 15 and is nonfocal. However given his headache and his subjective symptoms we will get a CT scan of his head without contrast also he did have some abdominal discomfort and recently was diagnosed with a obstructing kidney stone we will get a noncontrasted CT scan in addition to metabolic and infectious workup. I will reassess after this initial workup is complete. Reassessment 720 workup complete labs unremarkable no evidence of urinary tract infection however slight worsening of renal insufficiency with creatinine 1.3 with a baseline of 0.9. No alternative explanation for patient's acute encephalopathy from labs. Chest x-ray performed which I personally interpreted which shows no acute cardiopulmonary emergency CT scan of the patient's head performed which I personally interpreted shows no acute intracranial abnormalities. However CT scan of the patient's abdomen pelvis demonstrates an 11 mm proximal ureteral stone with significant hydronephrosis comparing this to recent CT scan which was done on August 26 there was a large calcified area in the proximal area of the pelvic collecting system which appears to have a large calcification that is broken off and causes 11 mm proximal stone. The 3 mm stone from several weeks ago seems to have passed. Given the fact that patient has intermittent nausea vomiting and pain I suspect the majority of his symptoms are secondary to this. It is possible that he is bacteremic and possibly significantly dehydrated but he has no alternative explanation for his intermittent confusion. His family is now at the bedside and they state that he has been significantly worse than normal and complaining of severe pain at home but he is not complaining of the classic pain that typically see with this large of a kidney stone causing this type of obstruction. Nonetheless I believe that he needs to be evaluated by urology inpatient and possibly needing a surgical intervention. At the moment no definitive evidence of sepsis and holding off on any antibiotic administration we have called [facility] and they have no beds we are now calling [facility] will reassess after final disposition is completed. Reassessment 9:00 we have called multiple healthcare systems at this point and have an accepting physician at [facility]. I spoke with Dr. Sanders who agreed to manage this patient if transferred and subsequently Dr. Adrian Augustin accepted the patient. No immediate bed is available. This is a Dr. Lopes patient who would not be able to accept the patient in transfer in the middle of the night therefore we will hold on the patient a few more hours in the emergency department if no bed becomes available I have spoken with Dr. Kolby Segovia with [facility] medicine who has agreed to keep the patient and manage the patient until a bed becomes available. Family is aware of this plan and patient will be admitted and transferred or directly transferred from the emergency department depending on bed availability. Critical Care Critical Care Time Critical Care Time: Yes Attestation: On 09/01/24, the high probability of a clinically significant, sudden or life threatening deterioration of the following system(s) required my full and direct attention, intervention and personal management. The time I documented below is in addition to time spent performing reported procedures but includes the following listed in this critical care notation. Total Time Total Critical Care Time: 35
[2024-09-01 17:00] VITALS: BP 204/98; PULSE 78; O2SAT 94
[2024-09-01 17:01] LABS: Alanine Aminotransferase 25 U/L (12-78); Albumin Level 4.1 g/dl (3.5-5.0); Albumin/Globulin Ratio 1.5 (1.1-1.8); Alkaline Phosphatase 68 U/L (38-126); Aspartate Amino Transferase 31 U/L (17-59); Bilirubin,Total 0.7 mg/dl (0.2-1.3); Blood Urea Nitrogen 14 mg/dl (9-20); Calcium 9.2 mg/dl (8.4-10.2); Carbon Dioxide 27 mmol/L (22.0-30.0); Chloride 101 mmol/L (98-107); Creatinine Clearance Estimated 81 mL/min (50-200); Estimated Glomerular Filt Rate 53 ml/min (>60); GFR (African American) 65 ML/MIN (>60); Globulin 2.8 g/dL (1.3-3.2); Glucose 239 mg/dl (74-100); Sodium 135 mmol/L (136-145); Total Protein,Serum 6.9 g/dl (6.3-8.2)
[2024-09-01 17:12] LABS: Coronavirus 19, PCR Not Detected (NotDetected); Influenza A, PCR Not Detected (NotDetected); Influenza B, PCR Not Detected (NotDetected)
[2024-09-01] MEDS: ACETAMINOPHEN 1,000MG/100ML VIAL 1000 MG IV (17:14)
[2024-09-01 17:16] LABS: Troponin I < 0.01 ng/ml (0.00-0.034)
[2024-09-01 17:30] LABS: Microscopic, Urine URINE MICROSCOPIC (MICROSCOPIC)
[2024-09-01 17:32] LABS: Thyroid Stimulating Hormone 2.18 uIU/mL (0.465-4.68)
--- NOTE | 2024-09-01 17:37 | PC.NURSE ---
Pt to ct scan via stretcher
[2024-09-01 17:38] LABS: Appearance,Urine CLEAR (Clear); Bilirubin,Urine Negative (Negative); Blood, Urine 1+ (Negative); Color,Urine YELLOW (Yellow); Glucose,Urine (UA) TRACE (Negative); Ketones,Urine 1+ (Negative); Leukocyte Esterase,Urine Negative (Negative); Nitrate,Urine Negative (Negative); PH,Urine 7.5 (5.0-8.5); Protein,Urine 2+ (Negative); Specific Gravity, Urine 1.025 (1.005-1.030); Urobilinogen,Urine 0.2 EU/dl (0.2)
[2024-09-01 17:52] LABS: Bacteria,Urine 1+ /lpf; RBC,Urine 20-50 #/hpf (0-3); Squamous Epithelial Cell,Urine Occasional #/hpf (0-5); WBC,Urine Occasional #/hpf (0-3)
[2024-09-01 18:01] VITALS: BP 119/94; PULSE 76; O2SAT 95
--- NOTE | 2024-09-01 18:33 | PC.NURSE ---
updated pt and family and test results thus far. He has ambulated to the bathroom 2x with walker and SBA. Recliner chair brought into room for comfort.
[2024-09-01 18:53] LABS: Ammonia < 9 umol/L (9-30)
--- NOTE | 2024-09-01 19:16 | PC.NURSE ---
Contacted [facility] in regards to transfer and they stated they had a pending waitlist.
--- NOTE | 2024-09-01 19:33 | PC.NURSE ---
Contacted [facility] in regards to a transfer.
[2024-09-01 20:16] LABS: Troponin I < 0.01 ng/ml (0.00-0.034)
[2024-09-01] MEDS: MORPHINE 4MG/ML SYRINGE 4 MG IV ×2 (20:18→21:48)
[2024-09-01] MEDS: KETOROLAC 30MG/ML VIAL 15 MG IV (20:19)
[2024-09-01 20:39] LABS: Reflex Lactic Add Lactic Reflex
--- NOTE | 2024-09-01 20:53 | PC.NURSE ---
[facility] called to say Dr. Jozef Irby and Dr. Newell both accepted for transfer. Patient will go to [facility]. Immediate bed is not available, but sometime through the night there could be one come available. ER attending notified
--- NOTE | 2024-09-01 20:59 | PC.NURSE ---
ER Attending notified documenting RN that patient will wait in the ER for 2 hours from now. Then will discuss admitting patient here to hold for bed
[2024-09-01 21:12] VITALS: BP 186/82; PULSE 81; RESP 20; O2SAT 96
--- NOTE | 2024-09-01 21:12 | PC.NURSE ---
[facility] command center called and patient will transfer to [facility] ER
[2024-09-01 21:46] VITALS: BP 166/82; PULSE 69; RESP 19; TEMP 36.6; O2SAT 95
== END 2024-09-01 22:00 | disposition short-term general hospital (02) ==
PROVIDERS: Emergency Provider Student in an Organized Health Care Education/Training Program; PCP Family Medicine
DX: N13.2 Hydronephrosis with renal and ureteral calculous obstruction (principal); R41.0 Disorientation, unspecified
CPT/HCPCS: 70450; 71045; 74176; 80053; 81001; 82140; 82803; 84443; 84484; 85025; 87040; 87636; 96361; 96374; 96375; 99291; J0131; J1885; J2270; J7120

== ENCOUNTER 2025-01-11 14:41 | Outpatient (CLI) | payer MEDICARE, OTHER, SELFPAY ==
--- NOTE | 2025-01-11 14:47 | CT_ITS ---
FINAL REPORT TECHNIQUE: Noncontrast CT exam of the abdomen and pelvis. This study was performed with techniques to keep radiation doses as low as reasonably achievable (ALARA). Individualized dose reduction techniques using automated exposure control or adjustment of mA and/or kV according to the patient''s size were employed. CLINICAL HISTORY: CALCULAS OF KIDNEY COMPARISON: 09/01/2024 FINDINGS: Abdomen: Lung bases are clear. Liver, spleen, pancreas and adrenal glands have a normal CT appearance in their limited unenhanced state. Gallbladder is present. Bowel is unremarkable. There is mild right hydronephrosis which is slightly improved from prior exam. There is a right UPJ stone measuring up to 8 mm seen on image 68. There is bilateral nephrolithiasis. Largest stone measures 16 mm and is in the upper pole of the left kidney. Pelvis: Appendix is normal. There is moderate sigmoid diverticulosis. Prostate is severely enlarged. There is urinary bladder wall thickening likely related to bladder outlet obstruction. IMPRESSION: Mild right hydronephrosis secondary to 8 mm UPJ stone. Bilateral nephrolithiasis. Reviewed, Interpreted and Dictated by Malathi Cortez MD Transcribed by Valeria Reilly Authenticated and [facility]
== END 2025-01-11 23:59 | disposition home or self-care (01) ==
LOC: RAD 14:43
PROVIDERS: PCP Psychiatry & Neurology Sleep Medicine
DX: N20.0 Calculus of kidney (principal)
CPT/HCPCS: 74176

== ENCOUNTER 2025-02-23 12:47 | Outpatient (CLI) | payer MEDICARE, OTHER, SELFPAY ==
--- NOTE | 2025-02-23 12:53 | XR_ITS ---
FINAL REPORT CLINICAL HISTORY: CALCULUS OF KIDNEY, nikki flank pain. hx of kidney stones. COMPARISON: CT 01/11/2025 FINDINGS: SINGLE VIEW ABDOMEN A single view of the abdomen was obtained. There is a nonobstructive bowel gas pattern. There are no abnormally dilated loops of small bowel. Dominant stone in the left is again seen measuring 2 cm and is unchanged. There is a questionable stone in the right UPJ measuring 9 mm. IMPRESSION: Bilateral stones as above. Reviewed, Interpreted and Dictated by Barron Hodge MD Transcribed by Lamar Myers Authenticated and [facility]
== END 2025-02-23 23:59 | disposition home or self-care (01) ==
LOC: RAD 12:49
PROVIDERS: PCP Family Medicine; Visit Provider Urology
DX: N20.0 Calculus of kidney (principal)
CPT/HCPCS: 74018

== ENCOUNTER 2025-07-09 14:01 | Outpatient (CLI) | payer MEDICARE, OTHER, SELFPAY ==
--- OUTSIDE RECORDS SUMMARY | 2025-02-12 10:00 | XMS_ITS ---
Author Organization 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 Gr. 1.025 Ketone Neg Bili Neg Gluc Neg CBC Venipuncture (in house) Reviewed date:02/12/2025 04:34:40 PM Interpretation: Performing Lab: Notes/Report: wbc 8.6 3.5 - 10 lymph 17.3% 15 - 50 mid 5.2% 2 - 15 gran 77.5% 35 - 80 rbc 4.86 3.5 - 5.5 hgb 14.4 11.5 - 16.5 hct 43.3 35 - 55 mcv 89.0 75 - 100 mch 29.6 25 - 35 mchc 33.2 31 - 38 platlet 272 100 - 400 Glycohemoglobin A1c (in hous e) Reviewed date:02/12/2025 04:34:49 PM Interpretation: Performing Lab: Notes/Report: glycohemoglobin 6.2% 5 - 6.5 % P-Comprehensive Metabolic Pa josue (CMP) Reviewed date:02/14/2025 02:30:57 PM Interpretation:gluc 124, prot 5.9 Performing Lab: Notes/Report: Test performed by [employer] [address] [place] [address] , [address], [place] [address] Dorian Hernandes MD, Jewelry Bench Worker CLIA: [id number] Sodium 141 135-145 mmol/L Potassium 4.7 3.5-5.3 mmol/L Chloride 107 97-108 mmol/L CO2 24 22-32 mmol/L Glucose 124 65-99 mg/dL BUN 21 8-23 mg/dL Creatinine 0.93 0.70-1.30 mg/dL Calcium 9.3 8.6-10.4 mg/dL eGFR by Creatinine 84 >59 mL/min/1.73m2 Protein 5.9 6.0-8.3 g/dL Albumin 4.1 3.5-5.3 g/dL Alkaline Phosphatase 64 40-129 IU/L ALT (SGPT) 14 <5-55 IU/L AST (SGOT) 6 <5-46 IU/L Bilirubin, Total 0.4 <0.2-1.2 mg/dL A/G Ratio 2.3 1.1-2.5 P-Microalbumin/Creatinine, R andom Urine Sample Reviewed date:02/14/2025 02:30:57 PM Interpretation:a/c 1379 Performing Lab: Notes/Report: Test performed by [facility] [address] [place] [address] , [address], [place] [address] Dorian Hernandes MD, Jewelry Bench Worker CLIA: [id number] Albumin/Creatinine Ratio, Urine 1379 0-30 ug/m g Microalbumin, Urine, Random 120.1 Creatinine, Urine 87.1 REASON FOR VISIT discuss neuropathy and a derm referral Medications Medication SIG (Take, Route, Frequency, Duration) Notes Start Date End Date Status guaiFENesin ER 600 MG 1 tablet as needed Orally Two times a day Active metFORMIN HCl 1000 MG TAKE 1 TABLET BY MOUTH TWICE DAILY; Duration: 90 Active Glimepiride 4 MG TAKE 1 TABLET BY MOUTH TWICE DAILY; Duration: 90 Active Valsartan 160 MG 1 tablet Orally Twic e a day; Duration: 90 days Active Ondansetron 4 MG 1 tablet on the tongue and allow to dissolve Orally three times a day as needed; Duration: 30 day(s) 09/21/2024 Active Magnesium Oxide 400 MG 1 tablet with hakan d Orally Once a day; Duration: 30 day(s) Active Metoprolol Succinate ER 200 MG TAKE 1 TABLET BY MOUTH DAILY Orally Once a day; Duration: 90 days Active Tamsulosin HCl 0.4 MG TAKE 1 CAPSULE BY MOUTH DAILY; Duration: 90 days Active amLODIPine Besylate 10 MG TAKE 1 TABLET BY MOUTH DAILY; Duration: 90 days Active Lantus SoloStar 100 UNIT/ML 20 Units Subcutaneous once daily Active Fluticasone Propionate 50 MCG/ACT 1 spray(s) in each nostril once a day; Duration: 90 days Active Clotrimazole-Betamethas one 1-0.05 % 1 shalini applied topically 2 times a day 05/06/2022 Active Refresh Lacri-Lube - as directed Ophthalmic 04/03/2024 Active Pravastatin Sodium 40 MG TAKE 1 TABLET BY MOUTH ONCE DAILY; Duration: 90 Active Furosemide 20 MG 1 tab(s) orally once a day Active CoQ-10 100 MG 1 cap(s) orally once a day 03/12/2016 Active Aspirin Adult Low Dose 81 MG 1 tab(s) orally once a day Active Glucosamine Chond MSM Formula - 1 tab(s) orally twice a day Active Nitroglycerin 0.4 MG 1 tab(s) sublingual ly every 5 minutes prn x 3 Active Triamcinolone Acetonide 0.1 % 1 shalini applied topically 3 times a day; Duration: 7 day(s) Active CPAP Supplies 1 orally At Bed Time ; Duration: 30 days needs new mask 02/12/2025 Active Vitamin B12 1000 MCG 1 tablet Orally Onc e a day; Duration: 30 day(s) Active oxyCODONE HCl 5 MG 1 capsule as needed Orally every 6 hrs Active Clopidogrel Bisulfate 75 MG 1 tablet Orally Once a day; Duration: 30 days Active Ozempic (0.25 or 0.5 MG/DOSE) 2 MG/3ML 0.25mg Subcutaneous once a week 02/12/2025 Active Hyoscyamine Sulfate 0.125 MG 1 tablet as needed Orally four times a day as needed Active Donepezil HCl 5 MG TAKE 1 TABLET BY MOUTH EVERY DAY AT BEDTIME; Duration: 90 Active Isosorbide Mononitrate ER 60 MG 1 tablet in the morning Orally Once a day; Duration: 30 days Active Vital Signs Blood pressure systolic 120 mm Hg 02/13/20 25 Blood pressure diastolic 70 mm Hg 025 Heart Rate 69 /min 02/12/2025 Height 71.25 in 02/12/2025 Weight 000 lbs 02/12/2025 Encounters Encounter Location Date Provider Diagnosis [facility] [address] [facility] [address] [facility] [address] [place] [id number] 02/12/2025 Edson Lopes Type 2 diabetes rosy itus with diabetic polyneuropathy, unspecified whether skilled nursing insulin use E11.42 ; Other intervertebral disc displacement, lumbar region M51.26 ; Other chronic pain G89.29 ; Essential (primary) hypertension I10 ; Essential hypertension I10 and Obstructive sleep apnea G47.33 Assessments Encounter Date Diagnosis (ICD Code) Assessment Notes Treatment Notes Treatment Clinical Notes Section Notes 02/12/2025 Type 2 diabetes mellitus with diabetic polyneuropathy, unspecified whether skilled nursing insulin use (ICD-10 - E11.42) 02/12/2025 Other intervertebral disc displacement, lumbar region (ICD-10 - M51.26) 02/12/2025 Other chronic pain (ICD-10 - G89.29) 02/12/2025 Essential (primary) hypertension (ICD-10 - I10) 02/12/2025 Essential hypertension (ICD-10 - I10) 02/12/2025 Obstructive sleep apnea (ICD-10 - G47.33) Plan Of Treatment Medication Medication Name Sig Start Date Stop Date Notes CPAP Supplies 1 orally At Bed Time ; Duration: 30 days 02/12/2025 needs new mask Ozempic (0.25 or 0.5 MG/DOSE) 2 MG/3ML 0.25mg Subcutaneous once a week 02/12/2025 Next Appt Details Follow Up: 4 Weeks, Reason: Provider Name:Edson Peterson er, 08/09/2025 01:30:00 PM, [address] [facility] [address] [facility], [address], [place], [id number], Progress Notes * Jose A BURTONDOB:0 1945 (80 yo M)Acc No.[id number]:02/12/2025 Progress Notes Patient: Jose A JC Jose Ramon Provider: Edson Lopes M.D. :1945 A ge:79 Y S ex:Male Date:02/12/2025 Address:[facility] [address], [place], [id number] Subjective: * Chief Complaints: * 1 . Discuss neuropathy and a derm referral. * HPI: E ndocrinology: The pt states he would like to discuss the diabetic neuropathy in his legs. Pt states he would like to discuss diabetes injections to help with weight loss. Pt states his glucose is running in the 80's-110's. 79 year old male presents with c/o Numbness, Tingling. c/o Recent Blood Sugars. M kira Reproductive: January 30 had repeat lithotripsy at [facility], Dr. Barrios. See note. E NT/respiratory: c/o Sleep Study: P t is doing well with CPAP and remaining complaint. Pt sts that he is needing supplies today. * ROS: D ERMATOLOGY: no R doug. n o H tyra. G ASTROENTEROLOGY: no N ausea. n o V omiting. n o D iarrhea.? U ROLOGY: no D ifficulty urinating. n o B lood in urine. * Medical History: C oronary Artery Disease, Heart Cath 2011?, ablation for A-fib, 2011, MD - February 2017, Diabetes mellitus, Hyperlipidemia, Hypertension, Exsmeidfn12/14, Flu 10/12, elevated PSA, s/p urology evaluation with biopsies, Lumbar Disc Disease, Lumbar Disc Herniation, Lumbar facet arthropathy, Spinal Stenosis, MRI 2015, Chronic back pain, s/p pain manangement evaluation 2018. * Surgical History: t onsillectomy , vasectomy , circumcision , arthroscopic knee surgery 1989, heart problems , colonoscopy, normal 2012, ablation , Dental Work April 16, 2016, Heart cath with [facility] 02/2017. * Hospitalization/Major Diagno stic Procedure: s ee above , [facility] ER - chest pain 03/2017, [facility] ER - Chest Pain 01/2019. * Family History: F ather: . M other: . 1 brother(s) , 1 sister(s) . 2 son(s) , 2 daughter(s) . . * Social History: C URRENT TOBACCO USE S moking Status: Patient does NOT smoke, Type of smokeless tobacco used: chewing tobacco. C affeine: yes, frequency:pop. Home smoke detector use: yes. Marital Status: . Alcohol: No. * Medications: T aking Vitamin B12 1000 MCG Tablet Extended Release 1 tablet Orally Once a day , Taking oxyCODONE HCl 5 MG Capsule 1 capsule as needed Orally every 6 hrs , Taking CoQ-10 100 MG Capsule 1 cap(s) orally once a day , Taking Aspirin Adult Low Dose 81 MG Tablet Delayed Release 1 tab(s) orally once a day , Taking Glucosamine Chond MSM Formula - Tablet 1 tab(s) orally twice a day , Taking Nitroglycerin 0.4 MG Tablet Sublingual 1 tab(s) sublingually every 5 minutes prn x 3 , Taking Triamcinolone Acetonide 0.1 % Cream 1 shalini applied topically 3 times a day , Taking Fluticasone Propionate 50 MCG/ACT Suspension 1 spray(s) in each nostril once a day , Taking Clotrimazole-Betamethasone 1-0.05 % Cream 1 shalini applied topically 2 times a day , Taking Refresh Lacri-Lube - Ointment as directed Ophthalmic , Taking Pravastatin Sodium 40 MG Tablet TAKE 1 TABLET BY MOUTH ONCE DAILY , Taking Furosemide 20 MG Tablet 1 tab(s) orally once a day , Taking Magnesium Oxide 400 MG Tablet 1 tablet with food Orally Once a day , Taking Metoprolol Succinate ER 200 MG Tablet Extended Release 24 Hour TAKE 1 TABLET BY MOUTH DAILY Orally Once a day , Taking Tamsulosin HCl 0.4 MG Capsule TAKE 1 CAPSULE BY MOUTH DAILY , Taking amLODIPine Besylate 10 MG Tablet TAKE 1 TABLET BY MOUTH DAILY , Taking Lantus SoloStar 100 UNIT/ML Solution Pen-injector 20 Units Subcutaneous once daily , Taking Ondansetron 4 MG Tablet Disintegrating 1 tablet on the tongue and allow to dissolve Orally three times a day as needed , Taking guaiFENesin ER 600 MG Tablet Extended Release 12 Hour 1 tablet as needed Orally Two times a day , Taking metFORMIN HCl 1000 MG Tablet TAKE 1 TABLET BY MOUTH TWICE DAILY , Taking Glimepiride 4 MG Tablet TAKE 1 TABLET BY MOUTH TWICE DAILY , Taking Valsartan 160 MG Tablet 1 tablet Orally Twice a day , Taking Hyoscyamine Sulfate 0.125 MG Tablet 1 tablet as needed Orally four times a day as needed , Taking Donepezil HCl 5 MG Tablet TAKE 1 TABLET BY MOUTH EVERY DAY AT BEDTIME , Taking Isosorbide Mononitrate ER 60 MG Tablet Extended Release 24 Hour 1 tablet in the morning Orally Once a day , Taking Clopidogrel Bisulfate 75 MG Tablet 1 tablet Orally Once a day * Allergies: G abapentin, Amoxicillin: Contraindication. Objective: * Vitals: W t:000, Temp:98.0, BP:120/70, HR:69, Nurse:KENYATTA, Ht: 71.25. * Examination: G eneral Examination: General Appearance: N AD, weighed 257# a year ago.. H EENT: a ctinic lessions of the left and right brow. O ral cavity: n o lesions, mucosa moist and WNL, no erythema. N melina: s upple, no lymphadenopathy, no carotid bruits. C hest: normal shape and expansion. H eart: R SR. L ungs: c lear to auscultation, no wheezes or rales. A bdomen: obese, soft and nontender, no organomegaly or masses. N eurologic Exam: I ntact, wheelchair. S kin: n ormal, no rash. P eripheral pulses: n ormal . B ack: mild dorsal kyphosis. E xtremities: t race l eg edema. ? Assessment: * Assessment: 1. T ype 2 diabetes mellitus with diabetic polyneuropathy, unspecified whether devops insulin use - E11.42 (Primary) 2 . O ther intervertebral disc displacement, lumbar region - M51.26 3 . O ther chronic pain - G89.29 4 . E ssential (primary) hypertension - I10 5 . E ssential hypertension - I10 6 . O bstructive sleep apnea - G47.33 Plan: * Treatment: Value Reference Range A lbumin/Creatinine Ratio, Urine 1379 H 0-30 - ug /mg * C reatinine, Urine 87.1 - mg/dL * M icroalbumin, Urine, Random 120.1 - mg/dL * Delia Jean 02/14/2025 02:3 0:48 PM > See phone encounter ?LAB: Urinalysis - Inhouse (Collection Date & Time - 02/12/2025)* Value Reference Range C olor/Clarity yellow/clear * L euk Neg * N itrite Neg * U robili 3.2 * P rotein 3+ * p H 5.5 * B lood Neg * S p. Gr. 1.025 * K etone Neg * B justin Neg * G chester Neg * Lidya Caban 02/12/2025 2:4 7:49 PM > 1+ Provider reviewed results while patient in office. ?LAB: Glycohemoglobin A1c (in house) (Collection Date & Time - 02/12/2025)* Value Reference Range g lycohemoglobin 6.2% 5 - 6.5 % * Lidya Caban 02/12/2025 2:4 9:21 PM > 1+ Provider reviewed results while patient in office. 2.?Essential (primary) hypertension?LAB: P-Comprehensive Metabolic Panel (CMP) (Collection Date & Time - 02/12/2025 02:25 PM)?gluc 124, prot 5.9* Value Reference Range A /G Ratio 2.3 1.1-2.5 - * A lbumin 4.1 3.5-5.3 - g/dL * A lkaline Phosphatase 64 40-129 - IU/L * A LT (SGPT) 14 <5-55 - IU/L * A ST (SGOT) 6 <5-46 - IU/L * B ilirubin, Total 0.4 <0.2-1.2 - mg/dL * B UN 21 8-23 - mg/dL * C alcium 9.3 8.6-10.4 - mg/dL * C hloride 107 97-108 - mmol/L * C O2 24 22-32 - mmol/L * C reatinine 0.93 0.70-1.30 - mg/dL * G lucose 124 H 65-99 - mg/dL * P otassium 4.7 3.5-5.3 - mmol/L * S odium 141 135-145 - mmol/L * P rotein 5.9 L 6.0-8.3 - g/dL * e GFR by Creatinine 84 >59 - mL/min/1.73m2 * Delia Jean 02/14/2025 02:3 0:48 PM > See phone encounter ?LAB: CBC Venipuncture (in house) (Collection Date & Time - 02/12/2025)* Value Reference Range w bc 8.6 3.5 - 10 * l ymph 17.3% 15 - 50 * m id 5.2% 2 - 15 * g ran 77.5% 35 - 80 * r bc 4.86 3.5 - 5.5 * h gb 14.4 11.5 - 16.5 * h ct 43.3 35 - 55 * m cv 89.0 75 - 100 * m ch 29.6 25 - 35 * m chc 33.2 31 - 38 * p latlet 272 100 - 400 * Lidya Caban L 02/12/2025 2:4 6:23 PM > 1+ Provider reviewed results while patient in office. 3.?Obstructive sleep apnea? Start CPAP Supplies, 1, orally, At Bed Time, 30 days, 30, Refills 1, Notes to Pharmacist: needs newmask.?? * Procedure Codes: G 2211 Complex e/[place], [address] CBC WITH AUTO DIFF, 32144 GLYCATED HEMOGLOBIN TEST, Modifiers: QW , 47757 Urinalysis, no micro, 3044F HG A1C LEVEL LT 7.0%, G8752 MOST RECENT SYSTOLIC BP < 140MM HG, G8754 MOST RECENT DIASTOLIC BP < 90MM HG * Follow Up: 4 Weeks * Images: Billing Information: * Visit Code: 94265 Office Visit, Est Pt., Level 4. * Procedure Codes: G2211 Complex e/[place]. [address] CBC WITH AUTO DIFF. 15753 GLYCATED HEMOGLOBIN TEST. Modifiers: QW 11219 Urinalysis, no micro. 3044F HG A1C LEVEL LT 7.0%. G8752 MOST RECENT SYSTOLIC BP < 140MM HG. G8754 MOST RECENT DIASTOLIC BP < 90MM HG. * Electronic signature of Edson Lopes MD on 07/09/2025 at 02:18 PM EDT Sign off status: Pending * Provider: Edson Lopes M.D. Date: 0 02/12/2025 Generated for Alphonse romo/Marjan/eTransmitting on: 0 07/09/2025 02:18 PM EDT History and Physical Notes * HPI (History of Present Illness) Category Sub-Category Detail Notes Category Not es ENT/respiratory Sleep Study: Pt is doing well with CPAP and remaining complaint. Pt sts that he is needing supplies today Endocrinology Numbness, Tingling Recent Blood Sugars Male Reproductive January 30 had repeat lithotripsy at [facility], Dr. Barrios. See note. Examination Category Sub-Category Detail Notes Category Not es General Examination HEENT: actinic less ions of the left and right brow Heart: RSR Lungs: clear to auscultatio n, no wheezes or rales Abdomen: obese, soft and nont anastasiya, no organomegaly or masses Extremities: trace leg edema General Appearance: NAD, weighed 257# a year ago. Skin: normal, no rash Neurologic Exam: Intact, wheelchair Neck: supple, no lymphaden opathy, no carotid bruits Oral cavity: no lesions, mucosa m oist and WNL, no erythema Peripheral pulses: normal Back: mild dorsal kyphosis Chest: normal shape and exp ansion
--- NOTE | 2025-07-09 14:06 | XR_ITS ---
FINAL REPORT CLINICAL HISTORY: Cough/ wheezing/ Poss left lower lung pneumonia COMPARISON: 09/01/2024 FINDINGS: PA and lateral views of the chest were obtained. The cardiac and mediastinal silhouettes are within normal limits. Linear opacities in both lung bases are unchanged and consistent with scar. No focal infiltrate. There is no pleural effusion or pneumothorax. No acute osseous abnormality is identified. IMPRESSION: No radiographic evidence of acute cardiac or pulmonary disease. Reviewed, Interpreted and Dictated by Aida Jordan MD Transcribed by Lamar Myers Authenticated and [facility]
--- OUTSIDE RECORDS SUMMARY | 2025-07-09 14:18 | XMS_ITS | Clinical Summary ---
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 Name Role Phone Luiz Lopes MD Primary Care Provider [phone] Family History Medical History Relation Name Comments Coronary artery disease Other 1 Diabetes Other 2 Hypertension Other 3 Relation Name Status Comments Other 1 Other 2 Other 3 Social History Tobacco Use Types Packs/Day Years Used Date Smoking Tobacco: Never Assessed Sex and Gender Information Value Date Recorded Sex Assigned at Not on file Legal Sex Male 8:49 PM EDT Gender Identity Not on file Sexual Orientation Not on file Last Filed Vital Signs Vital Sign Reading Time Taken Comments Blood Pressure - - Pulse - - Temperature - - Respiratory Rate - - Oxygen Saturation - - Inhaled Oxygen Concentration - - Weight 122 kg (270 lb) 01/01/2016 2:16 PM EST Height 182.9 cm (6') 01/01/2016 2:16 PM EST Body Mass Index 36.62 01/01/2016 2:16 PM EST Plan of Treatment Health Maintenance Due Date Last Done Comments [facility]-Depression Screening 1945 [facility]-/Child/Adol SDOH Screenings 1945 [facility]- SDOH Screenings 1964 [facility]-Adult SDOH Screenings 1963 [facility]-DTaP,Tdap,and Td Vaccines (1 - Tdap) 1965 [facility]-Zoster Vaccines (1 of 2) 1996 [facility]-Pneumococcal Vaccine: 50+ Years (2 of 2 - PCV) 09/26/1999 09/26/1998 [facility]-RSV Vaccine: 60+ Years or (1 - 1-dose 75+ series) 2021 [id number] Vaccine (3 - 2023- season) 2024 10/20/2021, 03/04/2021 [facility]-Influenza Vaccine (#1) 07/30/202511/10, 09/17/2022, 12/17/2021, Additional history exists [facility]-Hepatitis A Vaccines Aged Out 09/20/2019, 10/29 No longer eligible based on patient's age to complete this topic HPV Vaccines Aged Out No longer eligi ble based on patient's age to complete this topic [facility]-HIB Vaccines Aged Out No longer e ligible based on patient's age to complete this topic [facility]-IPV Vaccines Aged Out No longer e ligible based on patient's age to complete this topic [facility]-Rotavirus Vaccines Aged Out No lo nger eligible based on patient's age to complete this topic Care Teams Ground Water Contractor Relationship Specialty Start Date End Date Luiz Lopes MD [address] [place] [id number] PCP - General 04/11/21
--- OUTSIDE RECORDS SUMMARY | 2025-07-09 14:18 | XMS_ITS ---
Author Organization Unknown Allergies, Adverse Reactions and Alerts Date IsAllergic OnsetDate Allergen Reaction Type Severity Cholo rgyCode Legacyallergictoid ReactionCode ReactionCodeSystemID Custom 06/25 00:00 :00 1 Amoxicill in Contr aindi catio n [id number] 06/25 00:00 :00 1 Gabapenti n [id number] 06/13 00:00 :00 1 Amoxicill in Contr aindi catio n [id number] 06/13 00:00 :00 1 Gabapenti n [id number] 05/10 00:00 :00 1 Amoxicill in Contr aindi catio n [id number] 05/10 00:00 :00 1 Gabapenti n [id number] 04/02 00:00 :00 1 Amoxicill in Contr aindi catio n [id number] 04/02 00:00 :00 1 Gabapenti n [id number] 03/23 00:00 :00 1 Amoxicill in Contr aindi catio n [id number] 03/23 00:00 :00 1 Gabapenti n [id number] 03/22 00:00 :00 1 Amoxicill in Contr aindi catio n [id number] 03/22 00:00 :00 1 Gabapenti n [id number] 03/16 00:00 :00 1 Amoxicill in Contr aindi catio n [id number] 03/16 00:00 :00 1 Gabapenti n [id number] 03/16 00:00 :00 1 Amoxicill in Contr aindi catio n [id number] 03/16 00:00 :00 1 Gabapenti n [id number] 02/14 00:00 :00 1 Amoxicill in Contr aindi catio n [id number] 02/14 00:00 :00 1 Gabapenti n [id number] 02/12 00:00 :00 1 Amoxicill in Contr aindi catio n [id number] 02/12 00:00 :00 1 Gabapenti n [id number] 12/25 00:00 :00 1 Amoxicill in Contr aindi catio n [id number] 12/25 00:00 :00 1 Gabapenti n [id number] 12/07 00:00 :00 1 Amoxicill in Contr aindi catio n [id number] 12/07 00:00 :00 1 Gabapenti n [id number] 12/05 00:00 :00 1 Amoxicill in Contr aindi catio n [id number] 12/05 00:00 :00 1 Gabapenti n [id number] 11/23 00:00 :00 1 Amoxicill in Contr aindi catio n [id number] 11/23 00:00 :00 1 Gabapenti n [id number] 11/14 00:00 :00 1 Amoxicill in Contr aindi catio n [id number] 11/14 00:00 :00 1 Gabapenti n [id number] 10/27 00:00 :00 1 Amoxicill in Contr aindi catio n [id number] 10/27 00:00 :00 1 Gabapenti n [id number] 10/23 00:00 :00 1 Amoxicill in Contr aindi catio n [id number] 10/23 00:00 :00 1 Gabapenti n [id number] 10/12 00:00 :00 1 Amoxicill in Contr aindi catio n [id number] 10/12 00:00 :00 1 Gabapenti n [id number] 10/12 00:00 :00 1 Amoxicill in Contr aindi catio n [id number] 10/12 00:00 :00 1 Gabapenti n [id number] 10/03 00:00 :00 1 Amoxicill in Contr aindi catio n [id number] 10/03 00:00 :00 1 Gabapenti n [id number] 09/28 00:00 :00 1 Amoxicill in Contr aindi catio n [id number] 09/28 00:00 :00 1 Gabapenti n [id number] 09/25 00:00 :00 1 Amoxicill in Contr aindi catio n [id number] 09/25 00:00 :00 1 Gabapenti n [id number] 09/21 00:00 :00 1 Amoxicill in Contr aindi catio n [id number] 09/21 00:00 :00 1 Gabapenti n [id number] 09/15 00:00 :00 1 Amoxicill in Contr aindi catio n [id number] 09/15 00:00 :00 1 Gabapenti n [id number] 09/13 00:00 :00 1 Amoxicill in Contr aindi catio n [id number] 09/13 00:00 :00 1 Gabapenti n [id number] 09/06 00:00 :00 1 Amoxicill in Contr aindi catio n [id number] 09/06 00:00 :00 1 Gabapenti n [id number] 08/23 00:00 :00 1 Amoxicill in Contr aindi catio n [id number] 08/23 00:00 :00 1 Gabapenti n [id number] 08/07 00:00 :00 1 Amoxicill in Contr aindi catio n [id number] 08/07 00:00 :00 1 Gabapenti n [id number] 06/16 00:00 :00 1 Gabapenti n [id number] 06/13 00:00 :00 1 Gabapenti n [id number] 06/09 00:00 :00 1 Gabapenti n [id number] 04/27 00:00 :00 1 Gabapenti n [id number] 04/03 00:00 :00 1 Gabapenti n [id number] 01/20 00:00 :00 1 Gabapenti n [id number] 12/29 00:00 :00 1 Gabapenti n [id number] 12/10 00:00 :00 1 Gabapenti n [id number] 11/15 00:00 :00 1 Gabapenti n [id number] 11/11 00:00 :00 1 Gabapenti n [id number] 11/11 00:00 :00 1 Gabapenti n [id number] 09/01 00:00 :00 1 Gabapenti n [id number] 08/16 00:00 :00 1 Gabapenti n [id number] 08/12 00:00 :00 1 Gabapenti n [id number] 08/09 00:00 :00 1 Gabapenti n [id number] 07/27 00:00 :00 1 Gabapenti n [id number] 07/26 00:00 :00 1 Gabapenti n [id number] 07/02 00:00 :00 1 Gabapenti n [id number] 05/01 00:00 :00 1 Gabapenti n [id number] 04/28 00:00 :00 1 gabapenti n [id number] 03/10 00:00 :00 1 gabapenti n [id number] 02/25 00:00 :00 1 gabapenti n [id number] 02/24 00:00 :00 1 gabapenti n [id number] 02/24 00:00 :00 1 gabapenti n [id number] 02/22 00:00 :00 1 gabapenti n [id number] 02/15 00:00 :00 1 gabapenti n [id number] 02/10 00:00 :00 1 gabapenti n [id number] 02/08 00:00 :00 1 gabapenti n [id number] 01/08 00:00 :00 1 gabapenti n [id number] 01/01 00:00 :00 1 gabapenti n [id number] 12/11 00:00 :00 1 gabapenti n [id number] 12/07 00:00 :00 1 gabapenti n [id number] 12/02 00:00 :00 1 gabapenti n [id number] 09/18 00:00 :00 1 gabapenti n [id number] 09/02 00:00 :00 1 gabapenti n [id number] 08/18 00:00 :00 1 gabapenti n [id number] 08/12 00:00 :00 1 gabapenti n [id number]
--- OUTSIDE RECORDS SUMMARY | 2025-07-09 14:18 | XMS_ITS | Encounter Summary ---
Author Organization [facility] ([place], [place], [place], [place]) Address [address] [place] [address] Care Team Providers Care Slot Manager Name Role Phone Luiz Lopes MD Unavailable + [phone] Luiz Lopes MD Primary Care Provider [phone] Reason for Referral * Diagnostic X-Ray (Emergency) - Closed Specialty Diagnoses / Procedures Referred By Betina fernandez Referred To Contact Radiology Diagnoses Calculus of kidney Procedures X-ray abdomen KUB 1 view Murtaza Newell Jr., MD [address] [place] [address] Phone: tel: fax: [facility] [address] [place] [id number] Phone: tel: fax: Referral ID Status Reason Start Date Expiration Date Visits Re quested Visits Authorized [id number] Closed 01/30/2025 01/30/2026 1 1 Encounter Details Date Type Department Care Team (Late st Contact Info) Description 01/30/2025 Outside Orders [facility] [address] [place], [place] [id number] Murtaza Newell Jr., MD [address] [place], [place] [id number] Calculus of kidney (Primary Dx) Social History Tobacco Use Types Packs/Day Years Used Date Smoking Tobacco: Never Smokeless Tobacco: Never Alcohol Use Standard Drinks/Week Comments Never 0 (1 standard drink = 0.6 oz pur e alcohol) Utilities Answer Date Recorded In the past 12 months, has t he electric, gas, oil, or water company threatened to shut off services in your home? No 09/02/2024 Interpersonal Safety Answer Date Record ed How often does anyone, sergey hines family and friends, physically hurt you? Never 09/02/2024 How often does anyone, sergey hines family and friends, insult or talk down to you? Never 09/02/2024 How often does anyone, sergey hines family and friends, threaten you with harm? Never 09/02/2024 How often does anyone, sergey hines family and friends, scream or curse at you? Never 09/02/2024 Housing Stability Answer Date Recorded What is your living situation today? I have a [facility] place to live 09/02/[address] you li ve. Do you have problems with any of the following? None of the above 09/02/2024 Food Insecurity Answer Date Recorded Within the past 12 months, y ou worried that your food would run out before you got money to buy more. Never true 09/02/2024 Within the past 12 months, t he food you bought just didn't last and you didn't have money to get more. Never true 09/02/2024 Transportation Needs Answer Date Record ed In the past 12 months, has l ack of reliable transportation kept you from medical appointments, meetings, work or from getting things needed for daily living? No 09/02/2024 Financial Resource Strain Answer Date R ecorded How hard is it for you to pa y for the very basics like food, housing, medical care, and heating? Would you say it is: Not hard at all 09/02/2024 Employment Answer Date Recorded Do you want help finding or keeping work or a job? I do not need or want help 09/02/2024 Family and Community Support Answer Cain e Recorded If for any reason you need h elp with day-to-day activities such as bathing, preparing meals, shopping, managing finances, etc., do you get the help you need? I don't need any help 09/02/2024 Feeling Lonely or Isolated 0 09/02 Educational Attainment Answer Date Desean rded Do you speak a language other than [place] at ho az? No 09/02/2024 Do you want help with school or training? For example, starting or completing job training or getting a high school diploma, GED or equivalent. No 09/02/2024 Physical Activity Answer Date Recorded Number of minutes of exercise per week 0 09/02/2024 Self Management Answer Date Recorded Because of a physical, menta l, or emotional condition, do you have serious difficulty concentrating, remembering, or making decisions? (5 years or older) No 09/02/2024 Because of a physical, menta l, or emotional condition, do you have difficulty doing errands alone such as visiting a doctor's office or shopping? (15 years or older) No 09/02/2024 Substance Use Answer Date Recorded How many times in the past y ear have you used prescription drugs for non-medical reasons? Never 09/02/2024 How many times in the past year have you used [place] legal drugs? Never 09/02/2024 Mental Health Answer Date Recorded Calculation of above two rows 0 Sex and Gender Information Value Date Recorded Sex Assigned at Not on file Legal Sex Male 6:19 PM CDT Gender Identity Not on file Sexual Orientation Not on file documented as of this encounter Plan of Treatment Not on file documented as of this encounter Results * X-ray abdomen KUB 1 view (05/03/2025 5:57 AM EDT) Anatomical Region Laterality Modality Abdomen X-Ray 05/03/2025 8:04 AM EDT Impressions 05/03/2025 8:15 AM EDT Left nephrolithiasis. Images reviewed, interpreted, and dictated by Dr. Diana Shafer. Transcribed by Timmy Koch PA-C. Narrative 05/03/2025 8:15 AM EDT KUB HISTORY: Nephrolithiasis. COMPARISON: 01/30/2025 FINDINGS: A single view of the abdomen with a coned-down of the pelvis demonstrates a nonspecific bowel gas pattern. There is a 19 mm left renal stone which is stable. Previously seen right renal stone is no longer present. There are vascular calcifications within the pelvis. Procedure Note Diana Shafer MD - 05/03/2025 KUB HISTORY: Nephrolithiasis. COMPARISON: 01/30/2025 FINDINGS: A single view of the abdomen with a coned-down of the pelvis demonstrates a nonspecific bowel gas pattern. There is a 19 mm left renal stone which is stable. Previously seen right renal stone is no longer present. There are vascular calcifications within the pelvis. IMPRESSION: Left nephrolithiasis. Images reviewed, interpreted, and dictated by Dr. Diana Shafer. Transcribed by Timmy Koch PA-C. us Murtaza Newell Jr., MD IM DIAGNOSTIC IMAGING ORDERABLES Final Result documented in this encounter Visit Diagnoses Diagnosis Calculus of kidney- Primary documented in this encounter Care Teams Slot Manager Relationship Specialty Start Date End Date Luiz Lopes MD [address] [facility] [address] [place] [address] PCP - Family Medicine Family Medicine 09/02/24 Luiz Lopes MD [address] [place] [facility] [address] [place] [address] PCP - General Family Medicine 01/30/25 documented as of this encounter
--- OUTSIDE RECORDS SUMMARY | 2025-07-09 14:19 | XMS_ITS | Clinical Summary ---
Author Organization [facility] Address [address] [place] [address] Care Team Providers Care Industrial Accountant Name Role Phone Luiz Lopes MD Primary Care Provider [phone] Allergies Active Allergy Reactions Criticality Noted Date Comments Gabapentin Irritability Low 06/09/2016 Medications metFORMIN (GLUCOPHAGE) 1000 MG tablet 1 Tab BID 6 Active glimepiride (AMARYL) 4 MG tablet Take 4 mg by mouth 2 (Two) Times a Day. 6 Active pravastatin (PRAVACHOL) 40 MG tablet 40 mg Every Night. 6 Active aspirin 81 MG EC tablet Take 81 mg by mouth daily. Active Red Yeast Rice 600 MG tablet Take 2 tablets by mouth Daily. Active Flaxseed, Linseed, (FLAXSEED OIL PO) Take 2 capsules by mouth Daily. Active coenzyme Q10 100 MG capsule Take 100 mg by mouth daily. Active Multiple Vitamins-Minera ls (MULTIVITAMIN ADULT PO) Take 1 tablet by mouth Daily. Active glucosamine-cho ndroitin 500-400 MG capsule capsule Take 1 capsule by mouth 2 (Two) Times a Day With Meals. Active tamsulosin (FLOMAX) 0.4 MG capsule 24 hr capsule Take 0.4 mg by mouth Daily. 6 Active metoprolol succinate XL (TOPROL-XL) 100 MG 24 hr tablet Take 100 mg by mouth Every Night. 7 Active triamterene-hyd rochlorothiazid e (MAXZIDE-25) 37.5-25 MG per tablet Take 0.5 tablets by mouth Daily. 1QD 45 tablet 3 7 Active Additional Information Patient taking differently: 1 tabletOral Daily,(No instructions reported), Reported on 09/20/2017 losartan (COZAAR) 50 MG tablet Take 1 tablet by mouth 2 (Two) Times a Day. 180 tablet 3 7 Active nitroglycerin (NITROSTAT) 0.[address] 0.4 mg under the tongue Every 5 (Five) Minutes As Needed for Chest Pain. Take no more than 3 doses in 15 minutes. Active clopidogrel (PLAVIX) 75 MG tablet TAKE ONE TABLET BY MOUTH ONCE DAILY 90 tablet 8 Active clopidogrel (PLAVIX) 75 MG tablet TAKE ONE TABLET BY MOUTH ONCE DAILY 90 tablet 3 8 Active pregabalin (LYRICA) 50 MG capsule Take 50 mg by mouth every night at bedtime. 2 Active furosemide (LASIX) 20 MG tablet Take 20 mg by mouth Daily. 2 Active meloxicam (MOBIC) 7.5 MG tablet Daily. 2 Active isosorbide mononitrate (IMDUR) 60 MG 24 hr tablet Take 60 mg by mouth Every Morning. 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 questionable vertigo: a. Workup from primary care provider including the following: I. Carotid Duplex scan revealing 20-50% ACOSTA stenosis and 50-60% left internal carotid stenosis. II. Echocardiogram revealing normal LV function with EF 60%. No significant valvular heart disease. III. MRI, MRA of the head revealing no significant changes with exception of mild mitral vascular disease. A 24-hour Holter monitor on 02/23/2016 revealing normal sinus rhythm revealing occasional PVCs and PACs with average heart rate of 76 beats per minute, 1 episode of pause at 2.0 seconds at 3 a.m. Persistent atrial fibrillation 06/03/2016 Overview (06/03/2016): a. 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 b. Initial diagnosis of atrial fibrillation in approximately 2007. c. Multiple failed cardioversion procedures, including 1 internal cardioversion procedure in 2008 following treatment with amiodarone therapy. d. History of failed cardioversion therapy on Sotalol therapy. e. Echocardiogram, 2008, revealing normal LV function; left atrium mildly dilated, trace MR. f. Negative adenosine Cardiolite stress test, March 2009. g. Persistent atrial fibrillation/chronic Coumadin therapy, followed by Dr. Potts. h. Echocardiogram, 05/20/2011, with mild to moderate MR, EF 60%. i. Internal cardioversion to normal sinus rhythm, 05/20/2011. j. Negative Cardiolite stress test on 03/28/2012 that revealed no evidence of ischemia with an ejection fraction of 66%. k. Recurrent atrial fibrillation with external cardioversion by Dr. Sriram Sparks on 06/24/2012, with continuation of Tikosyn therapy. l. Readmission to [facility] on 06/27/2012 with the complaint of atypical chest pain and atrial fibrillation. Tobacco abuse 06/03/2016 Hypertension 06/03/2016 Obstructive sleep apnea 06/03/2016 Overview (06/03/2016): with noncompliance with CPAP Dyslipidemia 06/03/2016 Diabetes mellitus, type 2 06/03/2016 Prostate disease 06/03/2016 Osteoarthritis 06/03/2016 Resolved Problems Problem Noted Date Diagnosed Date Resolved Date NSTEMI (non-ST elevated myoc ardial infarction) 03/23/2017 03/24/2017 Family History Medical History Relation Name Comments No Known Problems Brother No Known Problems Father No Known Problems Mother Relation Name Status Comments Brother Father Mother Social History Tobacco Use Types Packs/Day Years Used Date Smoking Tobacco: Former Cigarettes Q uit: 09/04/1966 Smokeless Tobacco: Never Tobacco Cessation:Counseling Given: Not Answered Alcohol Use Standard Drinks/Week Comments No 0 (1 standard drink = 0.6 oz pur e alcohol) Abuse Screen Answer Date Recorded Unsafe at Home or Work/School Not on file Feels Threatened by Someone? Not on file 07/2023 Does Anyone Keep You from Co ntacting Others or Doint Things Outside the Home? Not on file 09/06/2023 Physical Sign of Abuse Present Not on file 1 Housing Stability Answer Date Recorded Current Living Arrangements Not on file 07/2023 Potentially Unsafe Housing Conditions Not on audra e 09/06/2023 Family and Community Support Answer Cain e Recorded Help with Day-to-Day Activities Not on file 09/06/2023 Lonely or Isolated Not on file 09/06/2023 Employment Answer Date Recorded Do you want help finding or keeping work or a davi b? Not on file 09/06/2023 Disabilities Answer Date Recorded Concentrating, Remembering, or Making Decisions Difficulty Not on file 09/06/2023 Doing Errands Independently Difficulty Not on fi le 09/06/2023 Education Answer Date Recorded Help with school or training? Not on file Preferred Language Not on file 09/06/2023 Sex and Gender Information Value Date Recorded Sex Assigned at Not on file Legal Sex Male 1:15 PM EDT Gender Identity Not on file Sexual Orientation Not on file Last Filed Vital Signs Vital Sign Reading Time Taken Comments Blood Pressure 142/82 10/29/2022 2:54 PM EST Pulse 65 10/29/2022 2:54 PM EST Temperature 36.1 C (97 F) 09/20/2017 8:30 AM EDT Respiratory Rate 16 09/20/2017 12:06 PM EDT Oxygen Saturation 95% 10/29/2022 2:54 PM EST Inhaled Oxygen Concentration - - Weight 118 kg (260 lb) 10/29/2022 2:54 PM EST Height 182.9 cm (6') 10/29/2022 2:54 PM EST Body Mass Index 35.26 10/29/2022 2:54 PM EST Plan of Treatment Health Maintenance Due Date Last Done Comments DIABETIC EYE EXAM 1955 DIABETIC FOOT EXAM 1955 URINE MICROALBUMIN-CREATININ E RATIO (uACR) 1956 TDAP/TD VACCINES (1 - Tdap) 1965 COLOGUARD 1991 COLON CANCER SCREENING 5 YEA R SIGMOIDOSCOPY 1991 COLONOSCOPY 1991 [address] CANCER SCREENING 1991 CT COLONOGRAPHY 1991 FECAL OCCULT BLOOD TEST 1991 FIT Testing (1 year) 1991 ZOSTER VACCINE (1 of 2) 1996 Pneumococcal Vaccine 50+ (2 of 2 - PCV) 09/26/1999 09/26/1998 ANNUAL WELLNESS VISIT 03/12/2017 HEPATITIS C SCREENING 03/12/2017 HEMOGLOBIN A1C 03/21/2018 09/20/2017, 03/24/2017 RSV Vaccine - Adults (1 - 1- dose 75+ series) 2021 COVID-19 Vaccine (3 - season) 2024, 03/04/2021 INFLUENZA VACCINE 08/29/2025 12/17/2021, , 09/23/2017 Medical Devices Implanted Type Area Pulp Mixer Device Identifier Shelf Expiration Date Model / Serial / Lot Stent Xience Alpine Thony Rx [id number] - [id number] Implanted:Qty: 1 on 03/24/2017 by Julius Hogan MD at [facility] [employer] [id number] / / Procedures Procedure Name Priority Date/Time Associated Diagnosis Comments HEMOGLOBIN A1C STAT 09/20/2017 8:35 AM EDT from Last 3 Months or Most Recently Relevant to Health Maintenance Results * (ABNORMAL) Hemoglobin A1c (09/20/2017 8:35 AM EDT) Hemoglobin A1C 7.50(H) 4.80 - 5.60 % 09/20/2017 10:24 AM EDT [facility] Blood Line / Unknown 09/20/2017 8: 35 AM EDT 09/20/2017 8:51 AM EDT Narrative [facility] - 09/20/2017 10:24 AM EDT The [place] [employer] recommends maintenance of Hemoglobin A1C at 7.0% or lower. Goals for Hemoglobin A1C reduction may need to be modified if hypoglycemia is a problem. us Rosetta Herbert PA-C LAB BLOOD ORDERABLES Final Result [facility]
[address] [id number], from Last 3 Months or Most Recently Relevant to Health Maintenance Insurance [place] [id number] MEDICARE A & B [employer] [facility] Advance Directives * Full Code (Latest Code Status on File) Date Activated Date Inactivated Comments 09/20/2017 12:19 PM 09/20/2017 8:20 PM * Full Code Date Activated Date Inactivated Comments 03/24/2017 6:11 PM 03/25/2017 4:15 PM * Full Code Date Activated Date Inactivated Comments 03/24/2017 3:03 AM 03/24/2017 6:11 PM Care Teams Industrial Accountant Relationship Specialty Start Date End Date Luiz Lopes MD [address] [place] [facility] [address] [place] [address] PCP - General Family Medicine 06/09/16
--- OUTSIDE RECORDS SUMMARY | 2025-07-09 14:20 | XMS_ITS | Encounter Summary ---
Author Organization [facility] Address [address] [place] [address] Care Team Providers Care Regional Truck Driver Name Role Phone Luiz Lopes MD Primary Care Provider [phone] Encounter Details Date Type Department Care Team (Late st Contact Info) Description 11/13/2015 External CPT II MEDICATION RECONCILIATION TECHNICIAN - [facility] Social History Tobacco Use Types Packs/Day Years Used Date Smoking Tobacco: Never Assessed Sex and Gender Information Value Date Recorded Sex Assigned at Not on file Legal Sex Male 1:15 PM EDT Gender Identity Not on file Sexual Orientation Not on file documented as of this encounter Plan of Treatment Not on file documented as of this encounter Visit Diagnoses Not on filedocumented in this encounter Care Teams Regional Truck Driver Relationship Specialty Start Date End Date Luiz Lopes MD [address] [place] [facility] [address] [place] [address] PCP - General Family Medicine 06/09/16 documented as of this encounter
--- OUTSIDE RECORDS SUMMARY | 2025-07-09 14:20 | XMS_ITS | Encounter Summary ---
Author Organization [facility] Address [address] [place] [address] Care Team Providers Care Circle Edger Name Role Phone Luiz Lopes MD Primary Care Provider [phone] Encounter Details Date Type Department Care Team (Late st Contact Info) Description 03/27/2015 External CPT II PROPELLANT ASSEMBLER - [facility] Social History Tobacco Use [...] on filedocumented in this encounter Care Teams Circle Edger Relationship Specialty Start Date End Date Luiz Lopes MD [address] [address] [address] [place] [address] PCP - General Family Medicine 06/09/16 documented as of this encounter
--- OUTSIDE RECORDS SUMMARY | 2025-07-09 14:20 | XMS_ITS | Clinical Summary ---
Author Organization [employer] ([place], [place], [place], [place]) Address [address] [place] [address] Care Team Providers Care Manager Public Name Role Phone Luiz Lopes MD Unavailable [phone] Luiz Lopes MD Primary Care Provider [phone] Allergies Active Allergy Reactions Criticality Noted Date Comments Gabapentin Anxiety Low 09/01/2024 Medications amLODIPine (NORVASC) 10 MG tablet Take 1 tablet (10 mg total) by mouth daily. Active glimepiride (AMARYL) 4 MG tablet Take 1 tablet (4 mg total) by mouth 2 (two) times daily. Active guaiFENesin (mucINEX) 600 mg 12 hr tablet Take 2 tablets (1,200 mg total) by mouth 2 (two) times daily Look-alike/Soun d-alike medication. Active isosorbide mononitrate (IMDUR) 60 MG 24 hr tablet Take 1 tablet (60 mg total) by mouth every morning before breakfast. Active metFORMIN (GLUCOPHAGE) 1000 MG tablet Take 1 tablet (1,000 mg total) by mouth 2 (two) times daily with breakfast and dinner Look-alike/Soun d-alike medication. Active pravastatin (PRAVACHOL) 40 MG tablet Take 1 tablet (40 mg total) by mouth nightly. Active valsartan (DIOVAN) 160 MG tablet Take 1 tablet (160 mg total) by mouth daily. 30 tablet 09/12/20 24 025 Active insulin glargine (Lantus Solostar U-100 Insulin) 100 unit/mL (3 mL) inpn Inject 20 Units subcutaneously nightly. 6 mL 09/11/20 Active amLODIPine (NORVASC) 10 MG tablet Take 1 tablet (10 mg total) by mouth daily. 09/13/20 Active coenzyme Q10 100 mg capsule Take 1 capsule (100 mg total) by mouth daily. Active valsartan (DIOVAN) 160 MG tablet Take 1 tablet (160 mg total) by mouth daily. Active metoprolol succinate (TOPROL-XL) 200 MG 24 hr tablet Take 1 tablet (200 mg total) by mouth daily. Active white petrolatum-mineral oiL (Refresh Lacri-Lube) 56.8-42.5 % oint Place into both eyes nightly. 04/03/20 Active ondansetron (ZOFRAN-ODT) 4 MG disintegrating tablet Take 1 tablet (4 mg total) by mouth every 4 (four) hours as needed for nausea. 09/21/20 Active doxycycline hyclate (VIBRA-TABS) 100 MG tablet Take 1 tablet (100 mg total) by mouth 2 (two) times daily. 6 tablet 11/02/20 Active clopidogreL (PLAVIX) 75 mg tablet Take 1 tablet (75 mg total) by mouth daily Look-alike/Soun d-alike medication. Active aspirin 81 MG EC tablet Take 1 tablet (81 mg total) by mouth daily. Active cefdinir (OMNICEF) 300 mg capsule Take 1 capsule (300 mg total) by mouth 2 (two) times daily. 10 capsule 05/03/20 25 Active Active Problems Problem Noted Date Diagnosed Date Chest pain 09/02/2024 Confusion 09/02/2024 CAD (coronary artery disease) 09/02/2024 Vertigo 09/02/2024 History of myocardial infarction 09/02/2024 Low back pain 09/02/2024 Kidney stone 09/01/2024 Abnormal nuclear stress test 03/24/2017 Bilateral carotid artery disease 06/30/2016 Obstructive sleep apnea syndrome 06/03/2016 Overview (09/02/2024): with noncompliance with CPAP He already got a new [employer] AutoPap but complaining of insufficient pressure support. Persistent atrial fibrillation 06/03/2016 Overview (09/02/2024): a. 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 [...] continuation of Tikosyn therapy. l. Readmission to [facility] on 06/27/2012 with the complaint of atypical chest pain and atrial fibrillation. Prostate disease 06/03/2016 Tobacco abuse 06/03/2016 Type 2 diabetes mellitus with obesity 06/03/2016 Encounters Date Type Department Care Team Description 05/03/2025 7:30 AM EDT - 05/03/2025 9:07 AM EDT Surgery [facility] Surgery Department [address] [place] [address] Gray Stewart MD LEFT EXTRACORPOREAL SHOCKWAVE LITHOTRIPSY 05/03/2025 7:28 AM EDT Anesthesia Event [facility] Surgery Department [address] [place] [address] Agata Mathew, Guerrero Worthy MD 05/03/2025 5:39 AM EDT - 05/03/2025 11:47 AM EDT Hospital Encounter [facility] Surgery Department [address] [place] [address] Gray Stewart MD Calculus of kidney Discharge Disposition: Home or Self Care 05/03/2025 Travel from Last 3 Months Immunizations Name Administration Dates Next Due Tdap 09/05/2024 Social History Tobacco Use Types Packs/Day Years Used Date Smoking Tobacco: Never Smokeless Tobacco: Never Tobacco Cessation:Counseling Given: Not Answered Alcohol Use Standard Drinks/Week Comments Never 0 [...] your living situation today? I have a [facility] place to live 09/02/2024 Think about the [...] Do you speak a language other than [place] at [facility]? No 09/02/2024 Do you want help with [...] Sign Reading Time Taken Comments Blood Pressure 119/66 05/03/2025 9:14 AM EDT Pulse 60 05/03/2025 9:14 AM EDT Temperature 36.1 C (97 F) 05/03/2025 9:10 AM EDT Respiratory Rate 20 05/03/2025 9:10 AM EDT Oxygen Saturation 95% 05/03/2025 9:14 AM EDT Inhaled Oxygen Concentration - - Weight 118.8 kg (262 lb) 05/03/2025 6:55 AM EDT Height 180.3 cm (5' 11 ) 05/03/2025 6:55 AM EDT Body Mass Index 36.54 05/03/2025 6:55 AM EDT Plan of Treatment Health Maintenance Due Date Last Done Comments Diabetic Kidney Health Evaluation (KED) 1946 Diabetic Eye Exam 1956 Depression Screening (12+) 1958 Hepatitis C Screening 1964 Shingles Vaccine (Zoster) (1 of 2) 1996 Pneumococcal 50+ years (2 of 2 - PCV) 09/26/1999 Medicare Initial AWV G0438 03/30/2012 Respiratory Syncytial Virus (RSV) Adult or (1 - 1-dose 75+ series) 2021 COVID-19 VACCINE (3 - season) 2024, 03/04/2021 Falls Risk Screening 11/29/2024 Hemoglobin A1C 03/04/2025 09/03/2024, 09/02/2024 Influenza Vaccine (#1) 2025 11/10/2023, 2021 Tobacco Cessation Counseling and Screening (12+) 05/03/2026 05/03/2025 DTAP/TDAP/TD VACCINES (2 - Td or Tdap) 09/05/2034 Medical Devices Implanted Type Area Ship Propeller Finisher Device Identifier Shelf Expiration Date Model / Serial / Lot Stent Uret Braid + [id number] - [id number] Implanted:Qty : 1 on 09/02/2024 by Murtaza Newell Jr., MD at [facility] IMPLANTS Right: [employer] [id number] 12/05/2026 [id number] / / [id number] Stent Uret Percflx + [id number] - [id number] Implanted:Qty : 1 on 11/02/2024 by Murtaza Newell Jr., MD at [facility] IMPLANTS Right: Ureter [employer] 07/04/2027 [id number] 40 / / [id number] Procedures Procedure Name Priority Date/Time Associated Diagnosis Comments NOVA GLUCOSE POC Routine 05/03/2025 8:22 AM EDT ANESTHESIA INTUBATION Routine 05/03/2025 7:35 AM EDT UT LITHOTRIPSY XTRCORP SHOCK WAVE 05/03/2025 7:27 AM EDT Uric acid nephrolithiasis Case Notes ESWL CONF [id number] SPOKE TO MEGHAN BOWENA GLUCOSE POC Routine 05/03/2025 6:45 AM EDT XR ABDOMEN/KUB 1 VW STAT 05/03/2025 5:57 AM EDT Calculus of kidney HEMOGLOBIN A1C Routine 09/03/2024 8:46 AM EDT from Last 3 Months or Most Recently Relevant to Health Maintenance Results * Glucose, Nova Meter (05/03/2025 8:22 AM EDT) Only the most recent of2 resultswithin the time period is included. POC-GLUCOSE 101 70 - 110 mg/dL 05/03/2025 8:24 AM EDT [facility] Comment:In the event of poor peripheral blood flow, venous or arterial blood should be used due to the potential of erroneous results. Hand Lens Polisher [id number] 05/03/2025 8:24 AM EDT [facility] Blood WHOLE BLOOD / Unknown 05/03/2025 8:22 AM EDT 05/03/2025 8:24 AM EDT Narrative [facility] - 05/03/2025 8:24 AM EDT Hand Lens Polisher ID is - [id number] us Gray Stewart MD POINT OF CARE TEST ORDERABLES F inal Result [facility] [address] [place] [id number], [facility] [phone] * AN SINGLE LUMEN INTUBATION (05/03/2025 7:35 AM EDT) Agata Frias CRNA - 05/03/2025 7:35 AM EDT Agata Mathew CRNA 05/03/2025 7:40 AM Intubation Authorized by: Agata Mathew CRNA Performed by: Agata Mathew CRNA Date/Time: 05/03/2025 7:35 AM Urgency: elective Indications and Patient Condition Indications for airway management: anesthesia Spontaneous Ventilation: absent Sedation level: general anesthesia Preoxygenated: yes Patient position: sniffing Mask difficulty assessment: 0 - not attempted Final Airway Details Final airway type: supraglottic airway Supraglottic airway type: classic Size: 3 Number of attempts at approach: 1 Agata Mathew CRNA ANESTHESIA ORDERABLES Fin al Result * X-ray abdomen KUB 1 view (05/03/2025 [...] Diana Shafer. Transcribed by Timmy Koch PA-C. Murtaza Newell Jr., MD IMG DIAGNOSTIC IMAGING ORDERABLES Final Result * Hemoglobin A1c (09/03/2024 8:46 AM EDT) Hemoglobin A1C 8.5 % 09/03/2024 1:21 PM EDT [facility] Comment: Hemoglobin A1C levels are related to mean glucose during the preceding 2-3 months. Less than 7% demonstrates glycemic control in diabetic patients. Hemoglobin AlC % Suggested Diagnosis > or = 6.5 Diabetic 5.7 - 6.4 Prediabetic <5.7 Non-diabetic eAVG Glucose 197.25 mg/dL 09/03/2024 1:21 PM EDT [facility] Blood Venipuncture / Unknown 09/03/2024 8:46 AM EDT 09/03/2024 8:51 AM EDT us Dennis Lozoya MD LAB BLOOD ORDERABLES Final Resul t [facility] [address] [phone] from Last 3 Months or Most Recently Relevant to Health [place] [address] [address] [address] [facility] Advance Directives For more information, please contact: [phone] * Full Code (Latest Code Status on File) Date Activated Date Inactivated Comments 09/01/2024 11:09 PM 09/11/2024 4:22 PM Care Teams Manager Public Relationship Specialty Start Date End Date Luiz Lopes MD [address] [facility] [address] [place] [address] PCP - Family Medicine Family Medicine 09/02/24 Luiz Lopes MD [address] [place] [address] [place] [id number] PCP - General Family Medicine 01/30/25
== END 2025-07-09 23:59 | disposition home or self-care (01) ==
LOC: RAD 14:02
PROVIDERS: PCP Family Medicine; Visit Provider Specialist
DX: R05.9 Cough, unspecified (principal); R06.2 Wheezing
CPT/HCPCS: 71046